=== PATIENT | male | born 1950 | race Caucasian/White ===

== ENCOUNTER 2024-12-17 12:41 | Inpatient (IN) ==
--- OUTSIDE RECORDS SUMMARY | 2024-12-17 12:46 | External Medical Summary ---
Author Name Unknown Address Unknown Organization K01:LABORATORY [facility] [place] - [address] [place] [address] Laboratory Report Ordering Provider Test Date Status LEMUEL NGUYEN 12/16/2024 14:11:05 Final Observation Date Value Abnormality Reference (Units ) Status Folic Acid 12/16/2024 14:11:05 11.8 >4.5 (ng/ mL) Final Performing Location [facility] - [address] [place] [address]
--- OUTSIDE RECORDS SUMMARY | 2024-12-17 12:46 | External Medical Summary | Summary of Care ---
Author Name Unknown Organization [facility] Address [address] [facility] [place] [address] Phone [phone] Care Team Providers Care Chemic Mangler Name Role Phone Russ Berman MD Primary Care Provider [phone] Reason for Visit * Reason Comments Outpatient Testing Encounter Details Date Type Department Care Team (Late st Contact Info) Description 12/16/2024 2:10 PM EDT Laboratory Laboratory, [facility] [address] [facility] [place] [address] [facility] [address] [facility] [address] Prostate cancer (HCC); Elevated prostate specific antigen (PSA); Fatigue, unspecified type; Heart palpitations; Anemia, unspecified type; Pallor; Dyslipidemia, goal LDL below 70 Allergies Active Allergy Reactions Criticality Noted Date Comments Pollen Other (Please comment) Low 01/02/2023 Nasal congestion Prednisone Edema Other,Neuro complications (Please comment) 05/15/2021 Edema to ankles/feet Tingling/numbness documented as of this encounter (statuses as of 12/16/2024) Medications Glucosamine Chondr 1500 Complx Oral Capsule Take 2 Capsules by mouth at bedtime. Active Aspirin 81 MG Oral Tablet Delayed Release Take 1 Tablet by mouth in the morning. Active Clobetasol Propionate 0.05 % External SolutionIndicat ions:Seborrheic dermatitis of scalp Apply 3-4 drops to scalp and ears once daily after the shower. Apply to wet scalp 50 mL 5 06/09/2023 Active Probiotic Daily Oral Capsule Take 1 Capsule by mouth in the morning. Active Roflumilast (Antiseborrheic ) 0.3 % External FoamIndications :Seborrheic dermatitis of scalp,Seborrhei c dermatitis Apply once daily to rash on scalp, ears, and face 60 g 3 07/29/2024 Active Atorvastatin Calcium 40 MG Oral Tablet (Lipitor) TAKE 1 TABLET EVERY MORNING 90 Tablet 3 09/13/2024 Active Metoprolol Succinate ER 50 MG Oral Tablet Extended Release 24 Hour (toPROL XL) Take 1 Tablet by mouth in the morning. 90 Tablet 3 10/31/2024 Active amLODIPine Besylate 5 MG Oral Tablet (Norvasc) TAKE 1 TABLET IN THE MORNING 90 Tablet 2 12/11/2024 Active documented as of this encounter (statuses as of 12/16/2024) Active Problems Problem Noted Date Diagnosed Date PSVT (paroxysmal supraventricular tachycardia) 1 11/09/2023 PAD (peripheral artery disease) 08/26/2024 Obesity, Class II, BMI 35-39.9, isolated (see ac tual BMI) 09/29/2023 Prostate cancer 09/29/2023 S/P AAA repair 09/29/2023 HTN, goal below 130/80 07/10/2023 Prediabetes 05/11/2023 Overview: Per Prediabetes protocol Dyslipidemia documented as of this encounter (statuses as of 12/16/2024) Resolved Problems Problem Noted Date Diagnosed Date Resolved Date Body mass index (BMI) of 40. 0 to 44.9 in adult 04/06/2023 09/29/2023 Overview: Per Obesity protocol Family history of other card iovascular diseases 09/29/2023 Overview (12/20/2015): ICD-10 update of inactive term documented as of this encounter (statuses as of 12/16/2024) Immunizations Name Administration Dates Next Due Pneumococcal Conjugate Vacc, 13 Valent (Prevnar) 10/13/2016,05/12/2016 Pneumococcal Polysaccharide PPV23 (Pneumovax) ,12/28/2012 Seasonal Influenza Virus Vac cine, Unspecified Formulation 07/23/2022 TDAP, Age 7 and older, IM (Adacel) 10/03/2013 Varicella Zoster Vaccine (Adult) 06/19/2014 documented as of this encounter Social History Tobacco Use Types Packs/Day Years Used Date Smoking Tobacco: Former Cigarettes 0.5 28 0 03/08/1995 - 03/08/2023 Smokeless Tobacco: Former Chew Alcohol Use Standard Drinks/Week Comments Yes 0 (1 standard drink = 0.6 oz pur e alcohol) 2 per year PHQ-2 Answer Date Recorded PHQ Adult Total Score 0 01/02/2023 Hunger Vital Sign Answer Date Recorded Within the past 12 months, y ou worried that your food would run out before you got the money to buy more. Never true 01/03/20 23 Within the past 12 months, t he food you bought just didn't last and you didn't have money to get more. 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 CBC results discussed. Recommend inpatient treatment and further evaluation. Transfusion of packed red blood cells, initiation of PPI therapy, need for upper and lower endoscopy, etc discussed. Patient needs to make arrangements for his who has dementia and take careof a few other things; he plans to go to the hospital tomorrow documented in this encounter Plan of Treatment Upcoming Encounters Date Type Department Care Team (Late st Contact Info) Description 01/10/2025 11:00 AM EDT Office Visit Cardiology, [facility] [address] [place] [address] Esteban Ortega O, DO [address] [place] [address] 09/25/2025 8:30 AM EST Office Visit Urology, [facility] [address] [place] [address] Cash Robertson MD [address] [place] [address] Pending Results Name Type Priority Associated Diagnoses Date /Time PSA Lab Routine Prostate cancer (HCC) Elevated prostate specific antigen (PSA) 12/16/2024 2:11 PM EDT TSH WITH FREE T4 IF INDICATED Lab Routine Fatigue, unspecified type Heart palpitations Anemia, unspecified type 12/16/2024 2:11 PM EDT MAGNESIUM Lab Routine Heart palpitations 12/16/2024 2:11 PM EDT IRON SCREEN, INCLUDING TIBC Lab Routine Fatigue, unspecified type Pallor Anemia, unspecified type 12/16/2024 2:11 PM EDT FERRITIN Lab Routine Fatigue, unspecified type Pallor Anemia, unspecified type 12/16/2024 2:11 PM EDT VITAMIN B12 Lab Routine Pallor Anemia, unspecified type 12/16/2024 2:11 PM EDT FOLIC ACID Lab Routine Pallor Anemia, unspecified type 12/16/2024 2:11 PM EDT LDL CHOLESTEROL (DIRECT MEASURE) Lab Routine Dyslipidemia, goal LDL below 70 12/16/2024 2:11 PM EDT SERUM PROTEIN ELECTROPHORESIS REFLEX PROFILE Lab Routine Anemia, unspecified type 12/16/2024 2:11 PM EDT Scheduled Procedures Name Priority Associated Diagnoses Date/Ti me COLONOSCOPY FLEXIBLE PROXIMA L DIAGNOSTIC Recall Special screening for malignant neoplasms, colon Health Maintenance Due Date Last Done Comments Albumin/Creatinine Ratio 1968 Hepatitis C Screening 1968 Cologuard 1995 Sigmoidoscopy 1995 Fecal Occult Blood Test 11/08/2001 11/08/2000 Colonoscopy 08/03/2012 08/03/2002 Colorectal Cancer Screening 08/03/2012 Zoster Vaccines (2 of 3) 08/14/2014 06/19/2014 Adult Wellness Visit 2016 DTap/Tdap Vaccines (2 - Td or Tdap) 10/03/2023 10/03/2013 Depression Screening 01/03/2024 01/02/2023 COVID-19 Vaccine ( season) 2024 07/23/2022, 04/24/2022, 08/27/2021, Additional history exists Influenza Vaccine (FLU shot) (#1) 2024 07/23/2022 HbA1c 08/26/2025 08/26/2024, 12/2022, 03/23/2023, Additional history exists GFR 12/16/2025 12/16/2024, 07/29, 07/23/2023, Additional history exists Lipid Panel 01/10/2028 01/09/2023, 02/26, 02/24/2006, Additional history exists Pneumococcal Vaccine: 50+ Years Completed 11/01/2018, 10/13/2016, 05/12/2016, Additional history exists AAA Screening Completed 02/02/2023, 04/2023, 01/05/2023, Additional history exists HPV (Gardasil) Vaccine Aged Out No lo nger eligible based on patient's age to complete this topic Hepatitis B Vaccine Aged Out No longe r eligible based on patient's age to complete this topic MENINGOCOCCAL (MENACTRA/MENVEO) Aged Out No longer eligible based on patient's age to complete this topic Meningitis B Vaccine (Bexsero/Trumemba) Aged Out No longer eligible based on patient's age to complete this topic documented as of this encounter Medical Devices Implanted Type Area Furrier Apprentice Device Identifier Shelf Expiration Date Model / Serial / Lot [facility]-10/11/2014 Implanted: 015 (Quantity not on file) Senait LUYKER [id number] / / Description:Target 360 SOFT coil implanted [facility]-10/11/2014 Implanted: 015 (Quantity not on file) Senait LUYKER [id number] / / Description:[facility]-10/11/2014 Implanted: 015 (Quantity not on file) Senait SOSA [id number] / / Description:Target HELICAL U LTRA coil implanted at [facility]-10/11/2014 Implanted: 015 (Quantity not on file) Clip SHEILA [id number] / / Description:Target HELICAL U LTRA coil implanted at [facility]-10/11/2014 Implanted: 015 (Quantity not on file) Clip SHEILA [id number] / / Description:Target 360 ULTRA coil implanted at [facility]-10/11/2014 Implanted: 015 (Quantity not on file) Clip SHEILA [id number] / / Description:Target 360 ULTRA coil implanted at [facility]-10/11/2014 Implanted: 015 (Quantity not on file) Clip SHEILA [id number] / / Description:Target HELICAL U LTRA coil implanted at [facility] Lens Intraoc 20.5 - [id number] - [id number] Implanted:Qty: 1 on 05/21/2021 by Geoffrey Sawyer MD at OR [facility] Right: Eye [employer] 02/25/2026 [id number] / [id number] / Lens Intraoc 20.5 - [id number] - [id number] Implanted:Qty: 1 on 05/28/2021 by Geoffrey Sawyer MD at OR [facility] Left: Eye [employer] 02/25/2026 [id number] / [id number] / [id number] documented as of this encounter Procedures Procedure Name Priority Date/Time Associated Diagnosis Comments DIFFERENTIAL, AUTOMATED Routine 12/16/2024 2:11 PM EDT Fatigue, unspecified type Heart palpitations Pallor Anemia, unspecified type COMPREHENSIVE METABOLIC PANEL Routine 12/16/2024 2:11 PM EDT Heart palpitations Dyslipidemia, goal LDL below 70 CBC Routine 12/16/2024 2:11 PM EDT Fatigue, unspecified type Heart palpitations Pallor Anemia, unspecified type CBC Routine 12/16/2024 2:11 PM EDT Fatigue, unspecified type Heart palpitations Pallor Anemia, unspecified type DIFFERENTIAL, TECHNOLOGIST REVIEW Routine 12/16/2024 2:11 PM EDT Fatigue, unspecified type Heart palpitations Pallor Anemia, unspecified type documented in this encounter Results * (ABNORMAL) DIFFERENTIAL, TECHNOLOGIST REVIEW (12/16/2024 2:11 PM EDT) WBC 4.99 4.00 - 10.80 K/uL 12/16/2024 3:59 PM EDT [facility] Neutrophils % 56.0 40.0 - 75.0 % 12/16/2024 3:59 PM EDT [facility] Lymphocytes % 21.0 18.0 - 42.0 % 12/16/2024 3:59 PM EDT [facility] [place] [facility] Monocytes % 14.0(H) 1.0 - 11.0 % 12/16/2024 3:59 PM EDT [facility] Eosinophils % 7.0(H) 0.0 - 6.0 % 12/16/2024 3:59 PM EDT [facility] Basophils % 2.0 0.0 - 2.0 % 12/16/2024 3:59 PM EDT [facility] [place] [facility] Absolute Neutrophils 2.79 1.80 - 7.70 K/uL 12/16/2024 3:59 PM EDT [facility] [place] [facility] Absolute Lymphocytes 1.05 1.00 - 4.80 K/uL 12/16/2024 3:59 PM EDT [facility] [place] [facility] Absolute Monocytes 0.70 0.00 - 1.10 K/uL 12/16/2024 3:59 PM EDT [facility] [place] Absolute Eosinophils 0.35 0.00 - 0.70 K/uL 12/16/2024 3:59 PM EDT [facility] [place] [facility] Absolute Basophils 0.10 0.00 - 0.20 K/uL 12/16/2024 3:59 PM EDT [facility] [place] [facility] nRBCs 12/16/2024 3:59 PM EDT [facility] [place] [facility] Elliptocytes Moderate( A) None Seen 12/16/2024 3:59 PM EDT [facility] [place] [facility] Schistocytes Few(A) None Seen 12/16/2024 3:59 PM EDT [facility] [place] [facility] Blood Venous blood specimen / Unknown Venipuncture / Unknown 12/16/2024 2:11 PM EDT 12/16/2024 2:11 PM EDT [facility] Santo KumarKelsey PA-C LAB BLOOD ORDERABLES Final Result [facility] [place] [facility] [address] [place] [address] * DIFFERENTIAL, AUTOMATED (12/16/2024 2:11 PM EDT) Blood Venous blood specimen / Unknown Venipuncture / Unknown 12/16/2024 2:11 PM EDT 12/16/2024 2:11 PM EDT [facility] Santo Mereditho PA-C LAB BLOOD ORDERABLES Final Result Performing Organization Address City/[facility]/ZIP Co de Phone Number [facility] [place] [facility] [place] [address] * (ABNORMAL) CBC (12/16/2024 2:11 PM EDT) [facility] WBC 4.99 4.00 - 10.80 K/uL 12/16/2024 3:59 PM EDT [facility] [place] RBC 1.70 4.50 - 5.25 M/uL 12/16/2024 3:59 PM EDT [facility] [place] [facility] HGB 6.3(L) 14.0 - 16.8 g/dL 12/16/2024 3:59 PM EDT [facility] [place] [facility] Comment:Results rechecked. HCT 19.9(L) 40.0 - 48.4 % 12/16/2024 3:59 PM EDT [facility] [place] MCV 117.1 82.0 - 99.5 fL 12/16/2024 3:59 PM EDT [facility] [place] [facility] MCH 37.1 27.0 - 34.0 pg 12/16/2024 3:59 PM EDT [facility] MCHC 31.7 32.0 - 36.0 g/dL 12/16/2024 3:59 PM EDT [facility] RDW 14.7 11.5 - 15.5 % 12/16/2024 3:59 PM EDT [facility] PLT 381 140 - 400 K/uL 12/16/2024 3:59 PM EDT [facility] MPV 8.9 6.6 - 11.1 fL 12/16/2024 3:59 PM EDT [facility] Blood Venous blood specimen / Unknown Venipuncture / Unknown 12/16/2024 2:11 PM EDT 12/16/2024 2:11 PM EDT Jose Francisco Cole PA-C LAB BLOOD ORDERABLES Final Result [facility] [address] [place] [address] * (ABNORMAL) COMPREHENSIVE METABOLIC PANEL (12/16/2024 2:11 PM EDT) BUN 17 6 - 20 mg/dL 12/16/2024 3:22 PM EDT [facility] CREATININE 1.3(H) 0.6 - 1.2 mg/dL 12/16/2024 3:22 PM EDT [facility] EGFR 57(L) >=60 mL/min 12/16/2024 3:22 PM EDT [facility] Comment:eGFR is calculated b ased on the CKD-EPI 2020 equation. SODIUM 138 135 - 146 mmol/L 12/16/2024 3:22 PM EDT [facility] POTASSIUM 4.7 3.5 - 5.1 mmol/L 12/16/2024 3:22 PM EDT [facility] CHLORIDE 103 98 - 107 mmol/L 12/16/2024 3:22 PM EDT [facility] CO2 23 22 - 32 mmol/L 12/16/2024 3:22 PM EDT [facility] ANION GAP 12 7 - 15 mmol/L 12/16/2024 3:22 PM EDT [facility] GLUCOSE 101 70 - 120 mg/dL 12/16/2024 3:22 PM EDT [facility] Albumin 4.2 3.8 - 5.0 g/dL 12/16/2024 3:22 PM EDT [facility] AST 21 10 - 50 U/L 12/16/2024 3:22 PM EDT [facility] Alkaline Phosphatase 83 35 - 130 U/L 12/16/2024 3:22 PM EDT [facility] Bilirubin, Total 0.9 <=1.2 mg/dL 12/16/2024 3:22 PM EDT [facility] [place] [facility] CALCIUM 9.5 8.4 - 10.2 mg/dL 12/16/2024 3:22 PM EDT [facility] [place] [facility] Protein 6.3 6.0 - 8.3 g/dL 12/16/2024 3:22 PM EDT [facility] [place] [facility] ALT 33 10 - 50 U/L 12/16/2024 3:22 PM EDT [facility] [place] [facility] Blood Venous blood specimen / Unknown Venipuncture / Unknown 12/16/2024 2:11 PM EDT 12/16/2024 2:11 PM EDT Jsoe Francisco Cole PA-C LAB BLOOD ORDERABLES Final Result [facility] [place] [facility] [address] [place] [address] documented in this encounter Visit Diagnoses Diagnosis Prostate cancer (HCC) Malignant neoplasm of prostate Elevated prostate specific antigen (PSA) Fatigue, unspecified type Heart palpitations Palpitations Anemia, unspecified type Pallor Dyslipidemia, goal LDL below 70 Other and unspecified hyperlipidemia documented in this encounter Care Teams Chemic Mangler Relationship Specialty Start Date End Date Russ Berman MD [address] [place] [address] PCP - General Family Medicine 08/12/23 documented as of this encounter
--- OUTSIDE RECORDS SUMMARY | 2024-12-17 12:46 | External Medical Summary ---
Author Name Unknown Address Unknown Organization K01:[facility] [place] [address] [place] [address] Laboratory Report Ordering Provider Test Date Status LEMUEL NGUYEN 12/16/2024 14:11:05 Final Observation Date Value Abnormality Reference (Units ) Status Ferritin 12/16/2024 14:11:05 466 Above high normal 30 -400 (ng/mL) Final Performing Location [facility] - [address] [place] [address]
--- OUTSIDE RECORDS SUMMARY | 2024-12-17 12:46 | External Medical Summary ---
Author Name Unknown Address Unknown Organization K01:LABORATORY [facility] [place] - [address] [place] [address] Laboratory Report Ordering Provider Test Date Status LEMUEL NGUYEN 12/16/2024 14:11:05 Final Observation Date Value Abnormality Reference (Units ) Status Vitamin B12 12/16/2024 14:11:05 [phone] (pg/mL) Final Performing Location [facility] - [address] [place] [address]
--- OUTSIDE RECORDS SUMMARY | 2024-12-17 12:46 | External Medical Summary ---
Author Name Unknown Address Unknown Organization K01:[facility] - [address] [place] [address] Laboratory Report Ordering Provider Test Date Status LEMUEL NGUYEN 12/16/2024 14:11:05 Final Observation Date Value Abnormality Reference (Units ) Status Magnesium 12/16/2024 14:11:05 2.1 1.5-2.6 (m g/dL) Final Performing Location [facility] - [address] [place] [address]
--- OUTSIDE RECORDS SUMMARY | 2024-12-17 12:46 | External Medical Summary | Summary of Care ---
Author Name Unknown Organization [facility] Address [address] [facility] [address] Phone [phone] Care Team Providers Care Server Manager Name Role Phone Russ Berman MD Primary Care Provider [phone] Reason for Visit * Reason Comments Consultation Palpitations Acute Encounter Details Date Type Department Care Team (Late st Contact Info) Description 12/16/2024 2:00 PM EDT Office Visit Cardiology, [facility] [address] [place] [address] Jose Francisco Cole PA-C [address] [facility] [place] [address] Fatigue, unspecified type*; Heart palpitations; Pallor; Dyslipidemia, goal LDL below 70; HTN, goal below 130/80; Dyslipidemia Allergies Active Allergy Reactions Criticality Noted Date Comments Pollen Other (Please comment) Low 01/02/2023 Nasal congestion Prednisone Edema Other,Neuro complications (Please comment) 05/15/2021 Edema to ankles/feet Tingling/numbness documented as of this encounter (statuses as of 12/17/2024) Medications Glucosamine Chondr 1500 Complx Oral Capsule [...] as of this encounter (statuses as of 12/17/2024) Active Problems Problem Noted Date Diagnosed Date PSVT (paroxysmal supraventricular tachycardia) 1 11/09/2023 PAD (peripheral artery disease) 08/26/2024 Obesity, Class II, BMI 35-39.9, isolated (see ac tual BMI) 09/29/2023 Prostate cancer 09/29/2023 S/P AAA repair 09/29/2023 HTN, goal below 130/80 07/10/2023 Prediabetes 05/11/2023 Overview: Per Prediabetes protocol Dyslipidemia documented as of this encounter (statuses as of 12/17/2024) Resolved Problems Problem Noted Date Diagnosed Date Resolved Date Body mass index (BMI) of 40. 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 The patient has yet to establish with [facility] Cardiology though is scheduled to be seen by Dr. Ortega on January 10, 2025. Reason for upcoming consultation with Dr. Ortega is palpitations. Patient notes slow gradual progressive complaints over the past year, more so over the past 4 months - increased exertional dyspnea with associated palpitations, generalized weakness, fatigue, lack of strength in the lower extremities. No overt chest pain. No resting or nocturnal dyspnea. No orthopnea or PND. No significant peripheral edema. No dizziness or syncope. No fevers or chills. No epistaxis. No hemoptysis. No gross hematuria. Bowels are intermittently loose and dark. He has a remote history of a stomach ulcer. He denies reflux or heartburn. No pica. In July 2024 he was referred for ambulatory EKG monitoring, wearing a Zio monitor for 7 days towards the end of July. The Zio monitor revealed sinus as the predominant rhythm with an average heart rate of 91 bpm. Occasional premature atrial beats and multiple runs of SVT were observed. Multiple triggered events occurred in association with sinus rhythm, sinus tachycardia, supraventricularectopy, and SVT. Metoprolol prescribed and increased after the Zio results were available, without subjective improvement in complaints. Resting echocardiography on September 09, 2024 was limited in quality though adequate for the evaluation. LV systolic function was preserved with an EF of 60 to 64%. Mild concentric LVH was noted. Left atrium was mildly enlarged. Grade 1 diastolic dysfunction observed. No significant valvular disease noted. The aortic root was noted to be mildly enlarged at 4.4 cm. The proximal ascending thoracic aorta was normal in size. Past Medical and Surgical History: Coronary and thoracic aortic calcifications via prior CT imaging Abdominal aortic aneurysm Postop AAA repair complicated by bloody NG tube output and diarrhea managed medically, receiving 2 units of packed red blood cells per available documentation. 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 Procedure complicated by embolization to the right middle cerebral artery after coiling, treated with stent assisted manual aspiration thrombectomy Enlarged aortic root Hypertension Dyslipidemia Mild bilateral internal carotid artery stenosis Emphysema Prediabetes GERD Remote history of ? gastric ulcer History of prostate cancer BPH with LUTS Left kidney cyst Chart history of antisocial personality disorder Arthritis, bilateral knee pain, multilevel disc degeneration Arthroscopic knee surgery Lumbar spine injection Cataract extractions Family History: Positive for CAD in father, uncles, paternal grandmother, paternal grandfather Social History, reformed smoker, 1/2 pack per day times 40 years. Reformed smokeless tobacco user. No significant alcohol. No illegal drug use. , with dementia. Retired. Social History Tobacco Use Smoking status: Former Current packs/day: 0.00 Average packs/day: 0.5 packs/day for 28.0 years (14.0 ttl pk-yrs) Types: Cigarettes Start date: 03/08/1995 Quit date: 03/08/2023 Years since quittin.7 Smokeless tobacco: Former Types: Chew Vaping Use Vaping status: Never Used Substance Use Topics Alcohol use: Yes Comment: 2 per year Drug use: Never A complete review of systems was not obtained due to time restraints. Review of patient's allergies indicates: Allergen Reactions Prednisone Edema Other and Neuro complications (Please comment) Edema to ankles/feet Tingling/numbness Hay Fever [Pollen] Other (Please comment) Nasal congestion Current Outpatient Medications Medication Sig Dispense Refill Glucosamine Chondr 1500 Complx Oral Capsule Take 2 Capsules by mouth at bedtime. Aspirin 81 MG Oral Tablet Delayed Release Take 1 Tablet by mouth in the morning. Clobetasol Propionate 0.05 % External Solution Apply 3-4 drops to scalp and ears once daily after the shower. Apply to wet scalp 50 mL 5 Probiotic Daily Oral Capsule Take 1 Capsule by mouth in the morning. Roflumilast (Antiseborrheic) 0.3 % External Foam Apply once daily to rash on scalp, ears, and face 60 g 3 Atorvastatin Calcium 40 MG Oral Tablet (Lipitor) TAKE 1 TABLET EVERY MORNING 90 Tablet 3 Metoprolol Succinate ER 50 MG Oral Tablet Extended Release 24 Hour (toPROL XL) Take 1 Tablet by mouth in the morning. 90 Tablet 3 amLODIPine Besylate 5 MG Oral Tablet (Norvasc) TAKE 1 TABLET IN THE MORNING 90 Tablet 2 No current facility-administered medications for this visit. OBJECTIVE/PHYSICAL EXAMINATION: General: Pleasant. Comfortable. Cooperative. Skin: Marked skin pallor Eyes: PER. Conjunctiva pink, sclera pale. HENT: Normocephalic. Atraumatic. Neck: Bilateral carotid bruits. No JVD. Heart: Regular at 92 bpm. Soft systolic murmur heard in the aortic outflow tract. No diastolic murmur. No rub. Lungs: Diminished at the bases however clear to auscultation. No wheeze. Abdomen: +BS. Nontender. Extremities: Thick, without significant edema. No clubbing. No cyanosis. Pulses: radial=2/4, posterior tibial=2/4. Limited neurological examination: No focal deficit. Data: February 18, 2023 Nuclear Stress Test ([facility]) ECG Response: Non-diagnostic Symptoms EX: No significant Regadenoson associated chest discomfort. SPECT Ischemia: None SPECT Infarction: None T.I.D.: LVEF: 63% (visually confirmed; lower limit normal range 50%) LV Wall Motion: Normal Probability of CAD: Relatively low Probability of Ischemia: Relatively low Extent of Ischemia: No significant ischemia Severity of Ischemia: No significant ischemia Risk - Mortality: Low risk (based on LVEF and total defect size) Risk - Coronary Events: Low risk (based on severity of ischemia) Probability of Infarction: Relatively low Extent of Infarction: No significant infarction Severity of Infarction: No significant infarction Final Assessment: The SPECT perfusion images are considered to be within normal limits. July 2024 Zio: Patient had a min HR of 61 bpm, max HR of 226 bpm, and avg HR of 91 bpm. Predominant underlying rhythm was Sinus Rhythm. 169 Supraventricular Tachycardia runs occurred, the run with the fastest interval lasting 31.7 secs with a max rate of 226 bpm (avg 194 bpm); the run with the fastest interval was also the longest. Supraventricular Tachycardia was detected within+/- 45 seconds of symptomatic patient event(s). Isolated SVEs were occasional (2.5%, 49447), SVE Couplets were rare (<1.0%, 1510), and SVE Triplets were rare (<1.0%, 333). Isolated VEs were rare (<1.0%), VE Couplets were rare (<1.0%), and no VE Triplets were present. The patient recorded 8 event markers and 9 diary entries which correlated with sinus and sinus tachycardia with sensed atrial ectopy and supraventricular tachycardia. IMPRESSION: Sinus and sinus tachycardia, average rate 91 beats per minute with occasional premature atrial beats and multiple runs of paroxysmal supraventricular tachycardia longest 31.7 seconds in duration, average heart rate 194 beats per minute September 09, 2024 TTE Interpretation Summary (as per Dr. Ortega): The examination is limited quality but adequate for evaluation of the referral indication. The qualitative LV ejection fraction is 60-64% (normal). The LV wall thickness is mildly increased (concentric). The left atrium is mildly enlarged (35-41 ml/m^2). The left ventricular diastolic function is mildly abnormal (grade I). No significant valvular disease is present. The proximal ascending thoracic aorta is normal sized. The aortic root is mildly enlarged, 4.4 cm. IMPRESSION: 74-year-old male seen acutely during 's visit due to clinical concern and as requested, progressive complaints including increased exertional dyspnea, palpitations, generalized weakness and fatigue, lack of strength in the lower extremities. Patient with marked reduction in exercise tolerance and overall functional capacity. Examination with marked pallor. Intermittently loose and darker color stools noted with history of past ? Upper GI bleeding noted. Patient does not appear to be actively bleeding. Suspect constellation of signs/symptoms are secondary to symptomatic anemia. RECOMMENDATIONS/PLAN: Laboratory work now. Further recommendations pending above Keep the previously scheduled cardiology consultation with Dr. Ortega for now Jose Francisco Cole PA-C Department of Cardiology I spent a 10 minutes [id number] with the patient, 15 minutes reviewing the patient's chart, and 19 minutes typing this note after the patient left, all on the date of service (total time 44 minutes) This chart was completed in part utilizing [employer] Speech Voice Recognition Software. Grammatical errors, random word insertions, prounoun errors, and incomplete sentences are an occasional consequence of this system due to software limitations, ambient noise, and hardware issues. Any formal questions or concerns about the content, text, or information contained within the body of this dictation should be directly addressed to the provider for clarification. documented in this encounter Plan of Treatment Upcoming Encounters Date Type Department Care Team (Late st Contact Info) Description 01/10/2025 11:00 AM EDT Office Visit Cardiology, [facility] [address] [place] [phone] Esteban Ortega O, [address] [place] [address] 09/25/2025 8:30 AM EST Office Visit Urology, [facility] [address] [place] [phone] Cash Robertson MD [address] [place] [address] Scheduled Procedures Name Priority Associated Diagnoses Date/Ti [...] shot) (#1) 2024 07/23/2022 HbA1c 08/26/2025 08/26/2024, 0812/2022, 03/23/2023, Additional history exists GFR 12/16/2025 12/16/2024, 07/29, 07/23/2023, Additional history exists Lipid Panel 01/10/2028 12/16/2024, 12/27, 03/08/2007, Additional history exists Pneumococcal Vaccine: 50+ Years Completed 11/01/2018, 10/13/2016, 05/12/2016, Additional history exists AAA Screening Completed 02/02/2023, 050 04/2023, 01/05/2023, Additional history exists HPV (Gardasil) [...] this encounter Medical Devices Implanted Type Area Medical Assistant Supervisor Device Identifier Shelf Expiration Date Model / Serial / Lot Clip-10/11/2014 Implanted: 015 (Quantity not on file) Senait [id number] / / Description:Target 360 SOFT coil implanted at [facility] Clip-10/11/2014 Implanted: 015 (Quantity not on file) Clip SHEILA [id number] / / Description:Target 360 SOFT coil implanted at [facility]-10/11/2014 Implanted: 015 (Quantity not on file) Clip SHEILA [id number] / / Description:Target HELICAL U LTRA coil implanted at [facility]-10/11/2014 Implanted: 015 (Quantity not on file) Clip SHEILA [id number] / / Description:Target HELICAL U LTRA coil implanted at [facility]-10/11/2014 Implanted: 015 (Quantity not on file) Clip SHEILA [id number] / / Description:Target 360 ULTRA coil implanted at [facility]-10/11/2014 Implanted: 015 (Quantity not on file) Clip SHEILA [id number] / / Description:Target 360 ULTRA coil implanted at [facility]-10/11/2014 Implanted: 015 (Quantity not on file) Clip SHEILA [id number] / / Description:Target HELICAL U LTRA coil implanted at [facility] Lens Intraoc 20.5 - [id number] - [id number] Implanted:Qty: 1 on 05/21/2021 by Geoffrey Sawyer MD at OR [facility] Right: Eye [employer] 02/25/2026 [id number] / [id number] / Lens Intraoc 20.5 - [id number] - [id number] Implanted:Qty: 1 on 05/28/2021 by Geoffrey Sawyer MD at OR [facility] Left: Eye BAUSCH [employer] LOMB 02/25/2026 [id number] / [id number] / [id number] documented as of this encounter Visit Diagnoses Diagnosis Fatigue, unspecified type- Primary Heart palpitations Palpitations Pallor Dyslipidemia, goal LDL below 70 Other and unspecified hyperlipidemia HTN, goal below 130/80 Unspecified essential hypertension Dyslipidemia Other and unspecified hyperlipidemia documented in this encounter Care Teams Server Manager Relationship Specialty Start Date End Date Russ Berman MD [address] [place] [phone] PCP - General Family Medicine 08/12/23 documented as of this encounter
--- OUTSIDE RECORDS SUMMARY | 2024-12-17 12:46 | External Medical Summary ---
Author Name Unknown Address Unknown Organization K01:[facility] [place] - [address] [place] [address] Laboratory Report Ordering Provider Test Date Status LEUMEL NGUYEN 12/16/2024 14:11:05 Final Observation Date Value Abnormality Reference (Units ) Status Iron 12/16/2024 14:11:05 210 Above high normal 45-176 (ug/dL) Final Iron-binding capacity 12/16/2024 14:11:05 289 250-425 (ug/dL) Final Transferrin Sat % 12/16/2024 14:11:05 73 Above high normal 15-55 (%) Final Performing Location [facility] - [address] [place] [address]
--- OUTSIDE RECORDS SUMMARY | 2024-12-17 12:47 | External Medical Summary | Summary of Care ---
Author Name Unknown Organization [facility] Address [address] [place] [address] Phone [phone] Care Team Providers Care Traffic Signal Mechanic Name Role Phone Russ Berman MD Primary Care Provider [phone] Reason for Visit * Reason Onset Date Comments Referral 09/01/2024 Encounter Details Date Type Department Care Team (Late st Contact Info) Description 09/01/2024 New Patient Triage (CHIEF CLERK SHELTER USE ONLY) Cardiology, [facility] [address] [facility] [place] [address] Harika Vuong, BROOM HANDLE DIPPER [address] [place] [address] Referral Allergies Active Allergy Reactions Criticality Noted Date Comments Pollen Other (Please comment) Low 01/02/2023 Nasal congestion Prednisone Edema Other,Neuro complications (Please comment) 05/15/2021 Edema to ankles/feet Tingling/numbness documented as of this encounter (statuses as of 09/02/2024) Medications Glucosamine Chondr 1500 Complx Oral Capsule [...] Capsule by mouth in the morning. Active Atorvastatin Calcium 40 MG Oral Tablet (Lipitor) Take 1 Tablet by mouth in the morning. 90 Tablet 3 09/30/2023 Active amLODIPine Besylate 5 MG Oral Tablet (Norvasc) Take 1 Tablet by mouth in the morning. In the morning.. 90 Tablet 3 12/15/2023 Active Roflumilast (Antiseborrheic ) 0.3 % External FoamIndications :Seborrheic dermatitis of scalp,Seborrhei c dermatitis Apply once daily to rash on scalp, ears, and face 60 g 3 07/29/2024 Active documented as of this encounter (statuses as of 09/02/2024) Active Problems Problem Noted Date Diagnosed Date PAD (peripheral artery disease) 08/26/2024 Obesity, Class II, BMI 35-39.9, isolated (see ac tual BMI) 09/29/2023 Prostate cancer 09/29/2023 S/P AAA repair 09/29/2023 HTN, goal below 130/80 07/10/2023 Prediabetes 05/11/2023 Overview: Per Prediabetes protocol Dyslipidemia documented as of this encounter (statuses as of 09/02/2024) Resolved Problems Problem Noted Date Diagnosed Date Resolved Date Body mass index (BMI) of 40. 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 Not on file Not on jhon e Not on file Not on file Not on file Not on file documented as of this encounter Progress Notes * Mariah Longo PA-C - 09/02/2024 7:04 PM EST Does patient need to be seen?: Yes Modality: Office visit Urgency: Within 30 days (routine) Discussed care plan with patient or proxy?: Yes via phone Communicated with patient on Date (mm/dd/): 09/01/24 at [facility] 1001 73 year old male referred by PCP for palpitations and ADDISON zio patch placed and echocardiogram scheduled Scheduled 12/[address] Ortega Appointment is appropriate as scheduled Thank you Mariah Longo PA-C Department of Cardiology, [facility] * René Alford LPN - 09/01/2024 9:56 AM EST New Patient Triage What is the diagnosis/reason for referral?: Palpitations Enter order ID here: [id number] Specialty specific documentation: Cardiology Structural Heart Discussed care plan with patient or proxy?: Yes via phone call Communicated with patient on Date (mm/dd/y): 09/01/2024 at [facility] 10:01 am Patient referred for palpitations. 7 day Zio ordered on 08/26/24. Echo ordered and scheduled 09/09/24. No recent EKG on file. Called patient and informed to keep appointment as scheduled for now pending test results. If testing comes back with urgent needs we would try and move up appointment at that time. Patient verbalized understanding. PCP notes: Christopher is here for evaluation of increasing dyspnea on exertion and palpitations. He is under a fair amount of stress due to the failing health of his . Christopher has known PAD and is s/p AAA repair. He has had several cardiac evaluations over the past few decades, but nothing of late. He denies sharon angina. Sleep well. Has occasional palpitations but nothing that lasts. He denies increased peripheral edema. ASSESSMENT AND PLAN: (R06.09) Dyspnea on exertion (primary encounter diagnosis) Plan: ECHO, COMPLETE (2D), TRANS-THORACIC -check echo; no signs of heart failure on exam; referral to cardiology placed; ER indications reviewed (R73.03) Prediabetes Plan: HEMOGLOBIN A1C (R00.2) Palpitations Plan: EXTERNAL EKG 2 TO 7 DAYS, TSH WITH FREE T4 IF INDICATED, CARDIOLOGY REFERRAL OP (I73.9) PAD (peripheral artery disease) (HCC) Plan: stable; no claudication (I10) HTN, goal below 130/80 Plan: stable (E78.5) Dyslipidemia Plan: on statin (E66.812) Obesity, Class II, BMI 35-39.9, isolated (see actual BMI) Plan: fairly inactive lifestyle documented in this encounter Plan of Treatment Upcoming Encounters Date Type Department Care Team (Latest Contact Info) Description 09/09/2024 7:15 AM EST Cardiac Studies Cardiac Studies, [facility] [address] [facility] [place] [address] 09/14/2024 8:15 AM EST Office Visit Urology, [facility] [address] [facility] [place] [address] Cash Robertson MD [address] [place] [address] 11/21/2024 1:20 PM EST Hospital Encounter OR [facility], Operating Room [facility] [address] [place] [address] Ancelmo Baires, DO [address] [place] [address] 11/21/2024 1:20 PM EST - 11/21/2024 1:45 PM EST Surgery OR [facility], Operating Room [facility] [address] [place] [address] Ancelmo Baires, DO [address] [place] [address] INJECTION SACROILIAC JOINT 01/10/2025 11:00 AM EDT Office Visit Cardiology, [facility] [address] [place] [address] Esteban Ortega, DO [address] [place] [address] Scheduled Procedures Name Priority Associated Diagnoses Date/Ti me INJECTION SACROILIAC JOINT Inflammation of sacroiliac joint (HCC) 11/21/2024 1:20 PM EST COLONOSCOPY FLEXIBLE PROXIMAL DIAGNOSTIC Recall Special screening for malignant neoplasms, [...] Influenza Vaccine (FLU shot) (#1) 2024 07/23/2022 GFR 08/12/2024 08/12/2023, 06/29, 07/10/2023, Additional history exists HbA1c 08/26/2025 08/26/2024, 12/2022, 03/23/2023, Additional history exists Lipid Panel 01/10/2028 01/09/2023, 02/26, 02/24/2006, Additional history exists Pneumococcal Vaccine: 65+ Years Completed 11/01/2018, 10/13/2016, 05/12/2016, Additional history [...] this encounter Medical Devices Implanted Type Area Grill Attendant Device Identifier Shelf Expiration Date Model / Serial / Lot [facility]10/11/2014 Implanted: 015 (Quantity not on file) Senait [id number] / / Description:Target 360 SOFT coil implanted at [facility]-10/11/2014 Implanted: 015 (Quantity not on file) Clip SHEILA [id number] / / Description:Target 360 SOFT coil implanted at [facility]-10/11/2014 Implanted: 015 (Quantity not on file) Clip SHEILA [id number] / / Description:Target HELICAL U LTRA coil implanted at [facility]-10/11/2014 Implanted: 015 (Quantity not on file) Clip SHEILA [id number] / / Description:[facility] HELICAL U LTRA [facility]-10/11/2014 Implanted: 015 (Quantity not on file) Clip SHEILA [id number] / / Description:Target 360 ULTRA coil implanted at [facility] Clip-10/11/2014 Implanted: 015 (Quantity not on file) Clip SHEILA [id number] / / Description:Target 360 ULTRA coil implanted at [facility]-10/11/2014 Implanted: 015 (Quantity not on file) Clip SHEILA [id number] / / Description:Target HELICAL U LTRA coil [facility] Lens Intraoc 20.5 - [id number] - [id number] Implanted:Qty: 1 on 05/21/2021 by Geoffrey Sawyer MD at OR [facility] Right: Eye BAUSCH [employer] LOMB 02/25/2026 [id number] / [id number] / Lens Intraoc 20.5 - [id number] - [id number] Implanted:Qty: 1 on 05/28/2021 by Geoffrey Sawyer MD at OR [facility] Left: Eye BAUSCH & LOMB 02/25/2026 [id number] / [id number] / [id number] documented as of this encounter Care Teams Traffic Signal Mechanic Relationship Specialty Start Date End Date Russ Berman MD [address] [id number] PCP - General Family Medicine 08/12/23 documented as of this encounter
--- OUTSIDE RECORDS SUMMARY | 2024-12-17 12:47 | External Medical Summary | Summary of Care ---
Author Name Unknown Organization [facility] Address [address] [place] [address] Phone [phone] Care Team Providers Care Rubber And Pounder Name Role Phone Russ Berman MD Primary Care Provider [phone] Encounter Details Date Type Department Care Team (Late st Contact Info) Description 08/01/2024 Telephone Dermatology [facility] [address] [place] [address] Elliot Conley MD [address] [place] [phone] Allergies Active Allergy Reactions Criticality Noted Date Comments Pollen Other (Please comment) Low 01/02/2023 Nasal congestion Prednisone Edema Other,Neuro complications (Please comment) 05/15/2021 Edema to ankles/feet Tingling/numbness documented as of this encounter (statuses as of 11/01/2024) Medications Glucosamine Chondr 1500 Complx Oral Capsule Take 2 Capsules by mouth at bedtime. Active Aspirin 81 MG Oral Tablet Delayed Release Take 1 Tablet by mouth in the morning. Active Clobetasol Propionate 0.05 % External SolutionIndica tions:Seborrhe ic dermatitis of scalp Apply 3-4 drops to scalp and ears once daily after the shower. Apply to wet scalp 50 mL 5 3 Active Probiotic Daily Oral Capsule Take 1 Capsule by mouth in the morning. Active amLODIPine Besylate 5 MG Oral Tablet (Norvasc) Take 1 Tablet by mouth in the morning. In the morning.. 90 Tablet 3 4 Active Roflumilast (Antiseborrhei c) 0.3 % External FoamIndication s:Seborrheic dermatitis of scalp,Seborrhe ic dermatitis Apply once daily to rash on scalp, ears, and face 60 g 3 4 Active Atorvastatin Calcium 40 MG Oral Tablet (Lipitor) Take 1 Tablet by mouth in the morning. 90 Tablet 3 4 024 Discontinued Finasteride 5 MG Oral Tablet (Proscar) Take 1 Tablet by mouth in the morning. 90 Tablet 3 4 024 Discontinued documented as of this encounter (statuses as of 11/01/2024) Active Problems Problem Noted Date Diagnosed Date PSVT (paroxysmal supraventricular tachycardia) 1 11/09/2023 PAD (peripheral artery disease) 08/26/2024 Obesity, Class II, BMI 35-39.9, isolated (see ac tual BMI) 09/29/2023 Prostate cancer 09/29/2023 S/P AAA repair 09/29/2023 HTN, goal below 130/80 07/10/2023 Prediabetes 05/11/2023 Overview: Per Prediabetes protocol Dyslipidemia documented as of this encounter (statuses as of 11/01/2024) Resolved Problems Problem Noted Date Diagnosed Date Resolved Date Body mass index (BMI) of 40. 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 * Telephone Encounter - Scotty Pittman OSA - 08/02/2024 8:31 AM EST Due to already a denial being on file we are unable to send a new PA. We are unable to process your request for prior authorization for [employer] 0.3% for the above member due to [employer] has a denied request on file for ZORYVE MIS 0.3% for this member. Please refer tothe appeals process outlined in the original denial or contact Prior Authorization Department at [phone] for further questions. Thank you Scotty Pittman Medication Open Hearth Laborer II [facility] 08/02/2024,8:31 AM documented in this encounter Plan of Treatment Upcoming Encounters Date Type Department Care Team (Late st Contact Info) Description 01/10/2025 11:00 AM EDT Office Visit Cardiology, [facility] [address] [place] [address] Esteban Ortega DO [address] [place] [address] 09/25/2025 8:30 AM EST Office Visit Urology, [facility] [address] [facility] [place] [address] Cash Robertson MD [address] [place] [address] Scheduled Procedures Name Priority Associated Diagnoses Date/Ti [...] shot) (#1) 2024 07/23/2022 GFR 08/12/2024 08/12/2023, 10/2 02/2023, 07/10/2023, Additional history exists HbA1c 08/26/2025 08/26/2024, 08/0 12/2022, 03/23/2023, Additional history exists Lipid Panel [...] this encounter Medical Devices Implanted Type Area Communications Specialist Device Identifier Shelf Expiration Date Model / Serial / Lot [facility]10/11/2014 Implanted: 015 (Quantity not on file) Clip SHEILA [id number] / / Description:Target 360 SOFT coil implanted at [facility]-10/11/2014 Implanted: 015 (Quantity not on file) Clip SHEILA [id number] / / Description:Target 360 SOFT coil implanted at [facility]-10/11/2014 Implanted: 015 (Quantity not on file) Clip SHEILA [id number] / / Description:Target HELICAL U LTRA coil implanted at [facility]-10/11/2014 Implanted: 015 (Quantity not on file) Clip SHEILA [id number] / / Description:Target HELICAL U LTRA coil implanted at [facility]-10/11/2014 Implanted: 015 (Quantity not on file) Clip SHEILA [id number] / / Description:Target 360 ULTRA coil implanted at [facility]-10/11/2014 Implanted: 015 (Quantity not on file) Clip SHEILA [id number] / / Description:Target 360 ULTRA coil [facility]/11/2014 Implanted: 015 (Quantity not on file) Clip SHEILA [id number] / / Description:Target HELICAL U LTRA coil implanted at [facility] Lens Intraoc 20.5 - [id number] - [id number] Implanted:Qty: 1 on 05/21/2021 by Geoffrey Sawyer MD at OR [facility] Right: Eye [employer]CH [employer] LOMB 02/25/2026 [id number] / [id number] / Lens Intraoc 20.5 - [id number] - [id number] Implanted:Qty: 1 on 05/28/2021 by Geoffrey Sawyer MD at OR [facility] Left: Eye BAUSCH & LOMB 02/25/2026 [id number] / [id number] / [id number] documented as of this encounter Care Teams Rubber And Pounder Relationship Specialty Start Date End Date Russ Berman MD [address] [place] [address] PCP - General Family Medicine 08/12/23 documented as of this encounter
--- OUTSIDE RECORDS SUMMARY | 2024-12-17 12:47 | External Medical Summary | Summary of Care ---
Author Name Unknown Organization [facility] Address [address] [place] [address] Phone [phone] Care Team Providers Care Weight Reduction Specialist Name Role Phone Russ Berman MD Primary Care Provider [phone] Reason for Visit * Reason Onset Date Comments Appointment 09/08/2024 Encounter Details Date Type Department Care Team (Late st Contact Info) Description 09/08/2024 Telephone Family Practice [facility] [address] [place] [address] Russ Berman MD [address] [place] [address] Appointment Allergies Active Allergy Reactions Criticality Noted Date Comments Pollen Other (Please comment) Low 01/02/2023 Nasal congestion Prednisone Edema Other,Neuro complications (Please comment) 05/15/2021 Edema to ankles/feet Tingling/numbness documented as of this encounter (statuses as of 09/09/2024) Medications Glucosamine Chondr 1500 Complx Oral Capsule [...] and face 60 g 3 07/29/2024 Active Metoprolol Succinate ER 25 MG Oral Tablet Extended Release 24 Hour (toPROL XL) Take 1 Tablet by mouth in the morning. 30 Tablet 5 09/08/2024 Active documented as of this encounter (statuses as of 09/09/2024) Active Problems Problem Noted Date Diagnosed Date PSVT (paroxysmal supraventricular tachycardia) 1 11/09/2023 PAD (peripheral artery disease) 08/26/2024 Obesity, Class II, BMI 35-39.9, isolated (see ac tual BMI) 09/29/2023 Prostate cancer 09/29/2023 S/P AAA repair 09/29/2023 HTN, goal below 130/80 07/10/2023 Prediabetes 05/11/2023 Overview: Per Prediabetes protocol Dyslipidemia documented as of this encounter (statuses as of 09/09/2024) Resolved Problems Problem Noted Date Diagnosed Date Resolved Date Body mass index (BMI) of 40. 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 * Telephone Encounter - Candace Mathew OSA - 09/09/2024 11:20 AM EST Pt has already been added to wait list * Telephone Encounter - Kym Justice MED ASSIST - 09/09/2024 11:17 AM EST Patient made aware. Can we add patient to the cancellation list for Cardiology? Also Dr. Berman echo was done today, please review when results are in and let patient know. * Telephone Encounter - Russ Berman MD - 09/08/2024 11:27 AM EST Marcus did not show a fib but did show frequent SVT which is what he is feeling. I sent in a beta michelle for him to start until he sees cardiology. documented in this encounter Plan of Treatment Upcoming Encounters Date Type Department Care Team (Latest Contact Info) Description 09/14/2024 8:15 AM EST Office Visit Urology, [facility] [address] [place] [address] Cash Robertson MD [address] [place] [address] 11/21/2024 1:20 PM EST Hospital Encounter OR [facility], Operating Room [facility] [address] [place] [address] Ancelmo Baires, DO [address] [place] [address] 11/21/2024 1:20 PM EST - 11/21/2024 1:45 PM EST Surgery OR [facility], Operating Room [facility] [address] [place] [address] Ancelmo Baires, DO [address] [place] [address] INJECTION SACROILIAC JOINT 01/10/2025 11:00 AM EDT Office Visit Cardiology, [facility] [address] [place] [address] Esteban Ortega, DO [address] [place] [address] Scheduled Procedures Name Priority Associated Diagnoses Date/Ti [...] 07/10/2023, Additional history exists HbA1c 08/26/2025 08/26/2024, 0812/2022, 03/23/2023, Additional history exists Lipid Panel 01/10/2028 [...] this encounter Medical Devices Implanted Type Area Film Laboratory Technician Device Identifier Shelf Expiration Date Model / Serial / Lot Clip-10/11/2014 Implanted: 015 (Quantity not on file) Clip SHEILA [id number] / / Description:Target 360 SOFT coil implanted at [facility]-10/11/2014 Implanted: 015 (Quantity not on file) Clip SHEILA [id number] / / Description:Target 360 SOFT coil implanted at [facility]-10/11/2014 Implanted: 015 (Quantity not on file) Clip SHEILA [id number] / / Description:Target HELICAL U LTRA coil implanted at [facility]-10/11/2014 Implanted: 015 (Quantity not on file) Clip SHEILA [id number] / / Description:Target HELICAL U LTRA coil implanted at [facility]-10/11/2014 Implanted: 015 (Quantity not on file) Clip SHEILA [id number] / / Description:Target 360 ULTRA coil implanted at [facility]-10/11/2014 Implanted: 015 (Quantity not on file) Clip SHEILA [id number] / / Description:Target 360 ULTRA coil implanted at [facility]-10/11/2014 Implanted: 015 (Quantity not on file) Clip SHEILA [id number] / / Description:Target HELICAL U LTRA coil implanted at [facility] Lens Intraoc 20.5 - [id number] - [id number] Implanted:Qty: 1 on 05/21/2021 by Geoffrey Sawyer MD at OR [facility] Right: Eye BAUSCH & LOMB 02/25/2026 [id number] / [id number] / Lens Intraoc 20.5 - [id number] - [id number] Implanted:Qty: 1 on 05/28/2021 by Geoffrey Sawyer MD at OR [facility] Left: Eye BAUSCH & LOMB 02/25/2026 [id number] / [id number] / [id number] documented as of this encounter Care Teams Weight Reduction Specialist Relationship Specialty Start Date End Date Russ Beramn MD [address] [address] PCP - General Family Medicine 08/12/23 documented as of this encounter
--- OUTSIDE RECORDS SUMMARY | 2024-12-17 12:47 | External Medical Summary | Summary of Care ---
Author Name Unknown Organization [facility] Address [address] [facility] [place] [address] Phone [phone] Care Team Providers Care Deputy Fire Marshal Name Role Phone Israel Oliver MD Primary Care Provider [phone] Reason for Visit * Reason Comments eRx-Medication Refill Encounter Details Date Type Department Care Team (Late st Contact Info) Description 12/09/2024 Refill Family Practice [facility] [address] [place] [address] Israel Oliver MD [address] [place] [address] Allergies Active Allergy Reactions Criticality Noted Date Comments Pollen Other (Please comment) Low 01/02/2023 Nasal congestion Prednisone Edema Other,Neuro complications (Please comment) 05/15/2021 Edema to ankles/feet Tingling/numbness documented as of this encounter (statuses as of 12/11/2024) Medications Glucosamine Chondr 1500 Complx Oral Capsule [...] by mouth in the morning. Active Roflumilast (Antiseborrhei c) 0.3 % External FoamIndication s:Seborrheic dermatitis of scalp,Seborrhe ic dermatitis Apply once daily to rash on scalp, ears, and face 60 g 3 4 Active Atorvastatin Calcium 40 MG Oral Tablet (Lipitor) TAKE 1 TABLET EVERY MORNING 90 Tablet 3 4 Active Metoprolol Succinate ER 50 MG Oral Tablet Extended Release 24 Hour (toPROL XL) Take 1 Tablet by mouth in the morning. 90 Tablet 3 5 Active amLODIPine Besylate 5 MG Oral Tablet (Norvasc) TAKE 1 TABLET IN THE MORNING 90 Tablet 2 5 Active amLODIPine Besylate 5 MG Oral Tablet (Norvasc) Take 1 Tablet by mouth in the morning. In the morning.. 90 Tablet 3 4 025 Discontinued documented as of this encounter (statuses as of 12/11/2024) Active Problems Problem Noted Date Diagnosed Date PSVT (paroxysmal supraventricular tachycardia) 1 11/09/2023 PAD (peripheral artery disease) 08/26/2024 Obesity, Class II, BMI 35-39.9, isolated (see ac tual BMI) 09/29/2023 Prostate cancer 09/29/2023 S/P AAA repair 09/29/2023 HTN, goal below 130/80 07/10/2023 Prediabetes 05/11/2023 Overview: Per Prediabetes protocol Dyslipidemia documented as of this encounter (statuses as of 12/11/2024) Resolved Problems Problem Noted Date Diagnosed Date Resolved Date Body mass index (BMI) of 40. 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 Not on jhon e Not on file Not on file Not on file Not on file documented as of this encounter Miscellaneous Notes * Telephone Encounter - Kan Diaz RPh - 12/11/2024 12:32 PM EDT Signed Prescriptions: Disp Refills amLODIPine Besylate 5 MG Oral Tablet (Norv*90 Tab*2 Sig: TAKE 1 TABLET IN THE MORNINGAuthorizing Provider: ISRAEL OLIVER User: KAN DIAZ- documented in this encounter Plan of Treatment Upcoming Encounters Date Type Department Care Team (Late st Contact Info) Description 01/10/2025 11:00 AM EDT Office Visit Cardiology, [facility] [address] [place] [address] Esteban Ortega DO [address] [place] [address] 09/25/2025 8:30 AM EST Office Visit Urology, [facility] [address] [place] [address] Cash Robertson MD [address] [place] [address] Scheduled Procedures Name Priority Associated Diagnoses Date/Ti [...] 07/10/2023, Additional history exists HbA1c 08/26/2025 08/26/2024, 08/12/2022, 03/23/2023, Additional history exists Lipid Panel 01/10/2028 [...] this encounter Medical Devices Implanted Type Area Corner Trimmer Operator Device Identifier Shelf Expiration Date Model / Serial / Lot [facility]-10/11/2014 Implanted: 015 (Quantity not on file) Clip SHEILA [id number] / / Description:Target 360 SOFT coil implanted at [facility]-10/11/2014 Implanted: 015 (Quantity not on file) Clip SHEILA [id number] / / Description:Target 360 SOFT coil implanted at [facility]-10/11/2014 Implanted: 015 (Quantity not on file) Clip SHEILA [id number] / / Description:Target HELICAL U LTRA coil implanted at [facility]-10/11/2014 Implanted: 015 (Quantity not on file) Clip SHEILA [id number] / / Description:Target HELICAL U LTRA coil [facility] Implanted: 015 (Quantity not on file) Clip SHEILA [id number] / / Description:Target 360 ULTRA coil implanted at [facility]-10/11/2014 Implanted: 015 (Quantity not on file) Clip SHEILA [id number] / / Description:Target 360 ULTRA coil implanted at [facility]-10/11/2014 Implanted: 015 (Quantity not on file) Clip SHEILA [id number] / / Description:Target HELICAL U LTRA coil implanted at [facility] Lens Intraoc 20.5 - [id number] - [id number] Implanted:Qty: 1 on 05/21/2021 by Geoffrey Sawyer MD at OR [facility] Right: Eye BAUSCH & LOMB 02/25/2026 [id number] / [id number] / Lens Intraoc 20.5 - [id number] - [id number] Implanted:Qty: 1 on 05/28/2021 by Geoffrey Sawyer MD at OR [facility] Left: Eye BAUSCH & LOMB 02/25/2026 [id number] / [id number] / [id number] documented as of this encounter Care Teams Deputy Fire Marshal Relationship Specialty Start Date End Date Israel Oliver MD [address] [place] [id number] PCP - General Family Medicine 08/12/23 documented as of this encounter
--- OUTSIDE RECORDS SUMMARY | 2024-12-17 12:47 | External Medical Summary | Summary of Care ---
Author Name Unknown Organization [facility] Address [address] [place] [address] Phone [phone] Care Team Providers Care Threshing Department Supervisor Name Role Phone Russ Berman MD Primary Care Provider [phone] Reason for Referral * Evaluate & Treat - Unlimited Visits (Within 10 days (routine)) - Authorized Specialty Diagnoses / Procedures Referred By Contact Referred To Contact Cardiovascular Medicine / Cardiology Diagnoses Palpitations Russ Bemran MD [address] [place] [address] Phone: tel: fax: Referral ID Status Reason Start Date Expiration Date Visits Requested Visits Authorized [id number] Authorized Specialty Services Required 4 999 999 Question Answer Referral Priority Within 10 days (routine) Where should this appointment be scheduled? [facility] To which of the following clinics are you referring your patient? General [facility]iology [facility] * [facility] (Diagnostic Medical) (Within 10 days (routine)) - Pending Review Specialty Diagnoses / Procedures Referred By Contac t Referred To Contact Cardiac Studies Diagnoses Dyspnea on exertion Procedures ECHO, COMPLETE (2D), TRANS-THORACIC Russ Berman MD [address] [address] Phone: tel: fax: Referral ID Status Reason Start Date Expiration Date Visits Requested Visits Authorized [id number] Pending Review Precert 08/26/[phone] Reason for Visit * Reason Comments Short of Breath Pt states he has had ongoing SOB and increased pulse. Pt has had increased stress and states "something is not right" Encounter Details Date Type Department Care Team (Late st Contact Info) Description 08/26/2024 3:00 PM EST Office Visit Family [facility] [address] [place] [address] Russ Berman MD [address] [place] [address] Dyspnea on exertion*; Prediabetes; Palpitations; PAD (peripheral artery disease) ([facility]); HTN, goal below 130/80; Dyslipidemia; Obesity, Class II, BMI 35-39.9, isolated (see actual BMI) Allergies Active Allergy Reactions Criticality Noted Date Comments Pollen Other (Please comment) Low 01/02/2023 Nasal congestion Prednisone Edema Other,Neuro complications (Please comment) 05/15/2021 Edema to ankles/feet Tingling/numbness documented as of this encounter (statuses as of 08/28/2024) Medications Glucosamine Chondr 1500 Complx Oral Capsule [...] in the morning. 90 Tablet 3 4 Active amLODIPine Besylate 5 MG Oral Tablet (Norvasc) Take 1 Tablet by mouth in the morning. In the morning.. 90 Tablet 3 4 Active Roflumilast (Antiseborrhei c) 0.3 % External FoamIndication s:Seborrheic dermatitis of scalp,Seborrhe ic dermatitis Apply once daily to rash on scalp, ears, and face 60 g 3 4 Active Finasteride 5 MG Oral Tablet (Proscar) Take 1 Tablet by mouth in the morning. 90 Tablet 3 4 024 Discontinued documented as of this encounter (statuses as of 08/28/2024) Active Problems Problem Noted Date Diagnosed Date PAD (peripheral artery disease) 08/26/2024 Obesity, Class II, BMI 35-39.9, isolated (see ac tual BMI) 09/29/2023 Prostate cancer 09/29/2023 S/P AAA repair 09/29/2023 HTN, goal below 130/80 07/10/2023 Prediabetes 05/11/2023 Overview: Per Prediabetes protocol Dyslipidemia documented as of this encounter (statuses as of 08/28/2024) Resolved Problems Problem Noted Date Diagnosed Date Resolved Date Body mass index (BMI) of 40. 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 Not on file Not on file Not on jhon e Not on file Not on file Not on file Not on file documented as of this encounter Last Filed Vital Signs Vital Sign Reading Time Taken Comments Blood Pressure 136/62 08/26/2024 2:47 PM EST Pulse 104 08/26/2024 2:47 PM EST Temperature 36.7 °C (98.1 °F) 08/26/2024 2:47 PM ES T Respiratory Rate 18 08/26/2024 2:47 PM EST Oxygen Saturation 96% 08/26/2024 2:47 PM EST Inhaled Oxygen Concentration - - Weight 125.6 kg (277 lb) 08/26/2024 2:47 PM EST Height 177.8 cm (5' 10") 08/26/2024 2:47 PM EST Body Mass Index 39.75 08/26/2024 2:47 PM EST documented in this encounter Progress Notes * Russ Berman MD - 08/28/2024 12:48 PM EST SUBJECTIVE: Christopher Bahena Dearmkunal is a 73 year old male. Chief Complaint Patient presents with Short of Breath Pt states he has had ongoing SOB and increased pulse. Pt has had increased stress and states "something is not right" HPI: Christopher is here for evaluation of increasing [...] that lasts. He denies increased peripheral edema. Patient Active Problem List Diagnosis Dyslipidemia Prediabetes HTN, goal below 130/80 Obesity, Class II, BMI 35-39.9, isolated (see actual BMI) Prostate cancer (HCC) S/P AAA repair PAD (peripheral artery disease) ([facility]) Current Outpatient Medications Medication Sig Dispense Refill [...] 1 Capsule by mouth in the morning. Atorvastatin Calcium 40 MG Oral Tablet (Lipitor) Take 1 Tablet by mouth in the morning. 90 Tablet 3 amLODIPine Besylate 5 MG Oral Tablet (Norvasc) Take 1 Tablet by mouth in the morning. In the morning.. 90 Tablet 3 Roflumilast (Antiseborrheic) 0.3 % External Foam Apply once daily to rash on scalp, ears, and face 60 g 3 No current facility-administered medications for this visit. Allergy: Review of patient's allergies indicates: Allergen Reactions Prednisone Edema Other and Neuro complications (Please comment) Edema to ankles/feet Tingling/numbness Hay Fever [Pollen] Other (Please comment) Nasal congestion OBJECTIVE: BP 136/62 | Pulse 104 | Temp 98.1 °F (36.7 °C) | Resp 18 | Ht 5' 10" (1.778 m) | Wt 277 lb (125.6kg) | SpO2 96% | BMI 39.75 kg/m² | BSA 2.49 m² General: alert, healthy, and no distress Head: Normocephalic, No masses, lesions, tenderness or abnormalities Neck: supple, no adenopathy, no bruits, thyroid normal size, non-tender, without nodularity Lungs: chest symmetric with normal AP diameter, no chest deformities noted, no chest wall tenderness, lungs clear to auscultation Heart: regular rate & rhythm, no murmur, and no gallops Pulses: carotid=2/4 w/o bruits Abdomen: abdomen soft, non-tender, normal bowel sounds, and no masses or organomegaly Extremities: less than 2 second capillary refill, no joint deformities, effusion, or inflammation Neuro Exam: alert & oriented x 3 with fluent speech, no focal motor/sensory deficits, gait normal, reflexes normal and symmetric Skin: skin color, texture, turgor are normal, no rashes or significant lesions ASSESSMENT AND PLAN: (R06.09) Dyspnea on exertion [...] (see actual BMI) Plan: fairly inactive lifestyle Follow up as needed. No other complaints were offered at this time. Russ Berman MD documented in this encounter Nursing Notes * Mary Mcginnis LPN - 08/26/2024 2:47 PM EST The patient has been properly identified by confirmation of name and date of . Chief Complaint Patient presents with Short of Breath Pt states he has had ongoing SOB and increased pulse. Pt has had increased stress and states "something is not right" documented in this encounter Plan of Treatment Upcoming Encounters Date Type Department Care Team (Latest Contact Info) Description 09/09/2024 7:15 AM EST Cardiac Studies Cardiac Studies, [facility] [address] [place] [address] 09/14/2024 8:15 AM EST Office Visit Urology, [facility] [address] [place] [address] Cash Robertson MD [address] [place] [address] 11/21/2024 1:20 PM EST Hospital Encounter [facility], Operating Room [facility] [address] [place] [address] Ancelmo Baires, DO [address] [place] [address] 11/21/2024 1:20 PM EST - 11/21/2024 1:45 PM EST Surgery OR [facility], Operating [facility] [address] [place] [address] Ancelmo Baires, DO [address] [place] [address] INJECTION SACROILIAC JOINT 01/10/2025 11:00 AM EDT Office Visit Cardiology, [facility] [address] [place] [address] Esteban Ortega, DO [address] [place] [address] Scheduled Orders Name Type Priority Associated Diagnoses Orde r Schedule ECHO, COMPLETE (2D), TRANS-THORACIC Echocardiology Routine Dyspnea on exertion Expected: 08/26/2024, Expires: 09/25/2026 EXTERNAL EKG 2 TO 7 DAYS Holter Routine Palpitations Expected: 08/27/2024 (Approximate), Expires: 08/26/2025 Scheduled Procedures Name Priority Associated Diagnoses Date/Ti me INJECTION SACROILIAC JOINT Inflammation of sacroiliac joint (HCC) 11/21/2024 1:20 PM EST COLONOSCOPY FLEXIBLE PROXIMAL DIAGNOSTIC Recall Special screening for malignant neoplasms, colon Scheduled Referrals Name Type Priority Associated Diagnoses Orde r Schedule CARDIOLOGY REFERRAL OP Referral Within 10 days (routine) Palpitations Ordered: 08/26/2024 Health Maintenance Due Date Last Done Comments [...] this encounter Medical Devices Implanted Type Area Garbage Collector Driver Device Identifier Shelf Expiration Date Model / Serial / Lot [facility]-10/11/2014 Implanted: 015 (Quantity not on file) Clip SHEILA [id number] / / Description:Target 360 SOFT coil [facility] Implanted: 015 (Quantity not on file) Senait LUYKER [id number] / / Description:Target 360 SOFT coil implanted [facility]-10/11/2014 Implanted: 015 (Quantity not on file) Senait LUYKER [id number] / / Description:Target HELICAL U LTRA [facility] Implanted: 015 (Quantity not on file) Clip SHEILA [id number] / / Description:Target HELICAL U LTRA coil implanted at [facility]-10/11/2014 Implanted: 015 (Quantity not on file) Clip SHEILA [id number] / / Description:Target 360 ULTRA coil implanted at [facility]-10/11/2014 Implanted: 015 (Quantity not on file) Clip SHEILA [id number] / / Description:Target 360 ULTRA coil implanted at [facility]-10/11/2014 Implanted: 015 (Quantity not on file) Clip SHEILA [id number] / / Description:Target HELICAL U LTRA coil implanted at [facility] Lens Intraoc 20.5 - [id number] - [id number] Implanted:Qty: 1 on 05/21/2021 by Geoffrey Sawyer MD at OR [facility] Right: Eye [employer]CH [employer]OMB 02/25/2026 [id number] / [id number] / Lens Intraoc 20.5 - [id number] - [id number] Implanted:Qty: 1 on 05/28/2021 by Geoffrey Sawyer MD at OR [facility] Left: Eye BAUSCH [employer] LOMB 02/25/2026 [id number] / [id number] / [id number] documented as of this encounter Results * TSH WITH FREE T4 IF INDICATED (08/26/2024 3:29 PM EST) Pathologist [facility] TSH 1.17 0.27 - 4.20 uIU/mL 08/26/2024 10:[address] [facility] Blood Venous blood specimen / Unknown Venipuncture / Unknown 08/26/2024 3:29 PM EST 08/26/2024 3:29 PM EST us Russ Berman MD LAB BLOOD ORDERABLES Toshia l Result LAB[facility]ATORY [facility] [address] [place] [address] * (ABNORMAL) HEMOGLOBIN A1C (08/26/2024 3:29 PM EST) Hemoglobin A1C 6.1(H) 4.0 - 5.6 % 08/26/2024 10:[address] [facility] Comment:The use of HbA1c to monitor glycemic status is based on normal hemoglobin and HbA composition. This test should not be used in patients with abnormal hemoglobin that affects the half life of the red blood cell or the in vivo glycation rates. Estimated Average Glucose 128(H) <126 mg/dL 08/26/2024 10:[address] [facility] Blood Venous blood specimen / Unknown Venipuncture / Unknown 08/26/2024 3:29 PM EST 08/26/2024 3:29 PM EST Russ Berman MD LAB BLOOD ORDERABLES Toshia l Result LABORATORY [facility] [address] [place] [address] documented in this encounter Visit Diagnoses Diagnosis Dyspnea on exertion- Primary Other dyspnea and respiratory abnormality Prediabetes Other abnormal glucose Palpitations PAD (peripheral artery disease) (HCC) Peripheral vascular disease, unspecified HTN, goal below 130/80 Unspecified essential hypertension Dyslipidemia Other and unspecified hyperlipidemia Obesity, Class II, BMI 35-39.9, isolated (see actual BMI) Morbid obesity Inflammation of sacroiliac joint (HCC) Sacroiliitis, not elsewhere classified documented in this encounter Care Teams Threshing Department Supervisor Relationship Specialty Start Date End Date Russ Berman MD [address] [facility] [place] [address] PCP - General Family Medicine 08/12/23 documented as of this encounter
--- OUTSIDE RECORDS SUMMARY | 2024-12-17 12:47 | External Medical Summary ---
Author Name Unknown Address Unknown Organization [id number]:[facility] [address] [place] [address] Laboratory Report Ordering Provider Test Date Status LEMUEL NGUYEN 12/16/2024 14:11:05 Final Observation Date Value Abnormality Reference (Units ) Status BUN 12/16/2024 14:11:05 17 6-20 (mg/dL) Final Creatinine 12/16/2024 14:11:05 1.3 Above high normal 0.6-1.2 (mg/dL) Final Glomerular filtration rate/1.73 sq M.predicted [Volume Rate/Area] in Serum, Plasma or Blood by Creatinine-based formula (CKD-EPI) 12/16/2024 14:11:05 57 Below low normal >=60 (mL/min) Final eGFR is calculated based on the CKD-EPI 2020 equation. Sodium 12/16/2024 14:11:05 138 135-146 (m mol/L) Final Potassium 12/16/2024 14:11:05 4.7 3.5-5.1 (m mol/L) Final Cl 12/16/2024 14:11:05 103 98-107 (mm ol/L) Final CO2 12/16/2024 14:11:05 23 22-32 (mmo l/L) Final Anion gap 12/16/2024 14:11:05 12 7-15 (mmol /L) Final Glucose 12/16/2024 14:11:05 101 70-120 (mg /dL) Final Albumin 12/16/2024 14:11:05 4.2 3.8-5.0 (g /dL) Final AST (Aspartate aminotransferase) 12/16/2024 14:11:05 21 10-50 (U/L) Final Alk Phos 12/16/2024 14:11:05 83 35-130 (U/ L) Final Bilirubin, Total 12/16/2024 14:11:05 0.9 <=1 .2 (mg/dL) Final Calcium 12/16/2024 14:11:05 9.5 8.4-10.2 ( mg/dL) Final Protein 12/16/2024 14:11:05 6.3 6.0-8.3 (g /dL) Final ALT (Alanine aminotransferase) 12/16/2024 14:11:05 33 10-50 (U/L) Final [facility] Location [facility] [place] [address]
--- OUTSIDE RECORDS SUMMARY | 2024-12-17 12:47 | External Medical Summary ---
Author Name Unknown Address Unknown Organization [id number]:[facility] [address] [place] [address] Laboratory Report Ordering Provider Test Date Status LEMUEL NGUYEN 12/16/2024 14:11:05 Final Observation Date Value Abnormality Reference (Units ) Status WBC, Total 12/16/2024 14:11:05 4.99 4.00-10.8 0 (K/uL) Final RBC 12/16/2024 14:11:05 1.70 4.50-5.25 (M/uL) Final Hemoglobin 12/16/2024 14:11:05 6.3 Below low normal 14 .0-16.8 (g/dL) Final Results rechecked.
HCT 12/16/2024 14:11:05 19.9 Below low normal 40. 0-48.4 (%) Final MCV 12/16/2024 14:11:05 117.1 82.0-99.5 (fL) Final MCH 12/16/2024 14:11:05 37.1 27.0-34.0 (pg) Final MCHC 12/16/2024 14:11:05 31.7 32.0-36.0 (g/dL) Final RDW 12/16/2024 14:11:05 14.7 11.5-15.5 (%) Final Platelets 12/16/2024 14:11:05 381 140-400 (K /uL) Final MPV 12/16/2024 14:11:05 8.9 6.6-11.1 ( fL) Final Performing Location [facility] [address] [place] [address]
--- OUTSIDE RECORDS SUMMARY | 2024-12-17 12:47 | External Medical Summary ---
Author Name Unknown Address Unknown Organization [id number]:[facility] - [address] [place] [address] Laboratory Report Ordering Provider Test Date Status SHAMAR EUGENE 12/16/2024 14:11:05 Final Observation Date Value Abnormality Reference (Units ) Status PSA 12/16/2024 14:11:05 0.38 <4.10 (ng/ mL) Final Performing Location [facility] - [address] [place] [address]
--- OUTSIDE RECORDS SUMMARY | 2024-12-17 12:47 | External Medical Summary ---
Author Name Unknown Address Unknown Organization [id number]:LABORATORY [facility] - [address] [place] [address] Laboratory Report Ordering Provider Test Date Status LEMUEL NGUYEN 12/16/2024 14:11:05 Final Observation Date Value Abnormality Reference (Units ) Status TSH 12/16/2024 14:11:05 1.32 0.27-4.20 (uIU/mL) Final Performing Location LABORATORY [facility] - [address] [place] [address]
--- OUTSIDE RECORDS SUMMARY | 2024-12-17 12:47 | External Medical Summary | Summary of Care ---
Author Name Unknown Organization [facility] Address [address] [facility] [place] [address] Phone [phone] Care Team Providers Care Campaign Fundraiser Name Role Phone Israel Oliver MD Primary Care Provider [phone] Reason for Visit * Reason Comments Follow Up Encounter Details Date Type Department Care Team (Late st Contact Info) Description 09/14/2024 8:15 AM EST Office Visit Urology, [facility] [address] [facility] [place] [address] Cash Robertson MD [address] [facility] [place] [address] Prostate cancer (HCC)*; Elevated prostate specific antigen (PSA) Allergies Active Allergy Reactions Criticality Noted Date Comments Pollen Other (Please comment) Low 01/02/2023 Nasal congestion Prednisone Edema Other,Neuro complications (Please comment) 05/15/2021 Edema to ankles/feet Tingling/numbness documented as of this encounter (statuses as of 09/14/2024) Medications Glucosamine Chondr 1500 Complx Oral Capsule [...] the morning. 30 Tablet 5 09/08/2024 Active Atorvastatin Calcium 40 MG Oral Tablet (Lipitor) TAKE 1 TABLET EVERY MORNING 90 Tablet 3 09/13/2024 Active documented as of this encounter (statuses as of 09/14/2024) Active Problems Problem Noted Date Diagnosed Date PSVT (paroxysmal supraventricular tachycardia) 1 11/09/2023 PAD (peripheral artery disease) 08/26/2024 Obesity, Class II, BMI 35-39.9, isolated (see ac tual BMI) 09/29/2023 Prostate cancer 09/29/2023 S/P AAA repair 09/29/2023 HTN, goal below 130/80 07/10/2023 Prediabetes 05/11/2023 Overview: Per Prediabetes protocol Dyslipidemia documented as of this encounter (statuses as of 09/14/2024) Resolved Problems Problem Noted Date Diagnosed Date Resolved Date Body mass index (BMI) of 40. 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 His past notes are reviewed. His past notes are reviewed. Prostate cancer: Presented locally May 2023. Previously using finasteride, stopped summer 2023. Bola 3+3 CAP noted on biopsy, managed with . XRT completed Apr 2024 Prostate biopsy Sep 2023: F Right mid 2 3.9 Prostatic adenocarcinoma, 80% pattern 4 4+3=7 3 Yes 25% G Right apex 3 3.2 Prostatic adenocarcinoma, 80% pattern 4 4+3=7 3 Yes 90% PSMA scan Jun 2023: IMPRESSION 1. Right prostate apex radiotracer avid nodule most consistent with prostate cancer. No evidence oflocal, regional or distant metastatic disease. 2. Infrarenal abdominal aortic aneurysm as described. Correlate with any prior available imaging todetermine stability. PSA Results: PSA <28 Aug 2024 per patient report. Lab Results Component Value Date/Time PSA - [facility] 3.45 02/03/2024 07:31 AM PSA - [facility] 10.08 (H) 08/27/2023 03:26 PM PSA - [facility] 16.73 (H) 06/08/2023 04:35 PM PSA - [facility] 1.52 03/08/2007 11:03 AM PSA - [facility] 1.57 02/24/2006 10:12 AM PSA - [facility] 1.32 04/07/2002 12:30 PM Current Outpatient Medications Medication Sig Dispense Refill [...] 1 Capsule by mouth in the morning. amLODIPine Besylate 5 MG Oral Tablet (Norvasc) Take 1 Tablet by mouth in the morning. In the morning.. 90 Tablet 3 Roflumilast (Antiseborrheic) 0.3 % External Foam Apply once daily to rash on scalp, ears, and face 60 g 3 Metoprolol Succinate ER 25 MG Oral Tablet Extended Release 24 Hour (toPROL XL) Take 1 Tablet by mouth in the morning. 30 Tablet 5 Atorvastatin Calcium 40 MG Oral Tablet (Lipitor) TAKE 1 TABLET EVERY MORNING 90 Tablet 3 No current facility-administered medications for this visit. Review of patient's allergies indicates: Allergen Reactions Prednisone Edema Other and Neuro complications (Please comment) Edema to ankles/feet Tingling/numbness Hay Fever [Pollen] Other (Please comment) Nasal congestion Social History: Social History Tobacco Use Smoking status: Former Current packs/day: 0.00 Average packs/day: 0.5 packs/day for 28.0 years (14.0 ttl pk-yrs) Types: Cigarettes Start date: 03/08/1995 Quit date: 03/08/2023 Years since quittin.5 Smokeless tobacco: Former Types: Chew Substance Use Topics Alcohol use: Yes Comment: 2 per year Vaping/E-Cigarette Use Vaping/E-Cigarette Use Never User Vaping/E-Cigarette Substances Vaping/E-Cigarette Devices Family History Problem Relation Name Age of Onset Dementia Mother Heart Disorder Father age 38 w/ 1st [place], 3 addl, from [place] Age 72 Fibromyalgia Sister Dawnea Lupus Sister Dawnea Diabetes Sister Rosette Obesity Sister Rosette Heart Disorder Uncle (Unspecified) from [place] age 36 Heart Disorder Uncle (Unspecified) 1st [place] age 40, addl 2 [place]'s Past Surgical History: Procedure Laterality Date ARTHROSCOPY OF JOINT Right knee BRAIN ANEURYSM REPR, SIMPLE COLONOSCOPY 09/28/2003 normal, repeat in 10 years. INFORMATION malignant cyst removed. INJECT DX/THER SUBSTANCE INTERLAMINAR LUMBAR/SACRAL W IMAGE GUIDE 07/08/2024 INJECTION SPINE LUMBAR OR SACRAL performed by Ancelmo Baires DO at OR [facility] REMOVE CATARACT, INSERT LENS PROSTH Right 05/21/2021 right EXTRACAPSULAR CATARACT REMOVAL WITH INTRAOCULAR LENS performed by Geoffrey Sawyer MD at OR [facility] REMOVE CATARACT, INSERT LENS PROSTH Left 05/28/2021 left EXTRACAPSULAR CATARACT REMOVAL WITH INTRAOCULAR LENS performed by Geoffrey Sawyer MD at OR [facility] Past Medical History: Diagnosis Date AAA (abdominal aortic aneurysm) ([facility]) 2014 Allergies History of hemorrhagic stroke with residual hemiparesis ([facility]) 2017 HTN, goal below 140/90 Mixed dyslipidemia Obesity, Class II, BMI 35-39.9, isolated (see actual BMI) 09/29/2023 PAD (peripheral artery disease) ([facility]) 08/26/2024 Prostate cancer ([facility]) 09/29/2023 PSA elevation PSVT (paroxysmal supraventricular tachycardia) ([facility]) 09/08/2024 S/P AAA repair 09/29/2023 Patient Active Problem List Diagnosis Dyslipidemia Prediabetes HTN, goal below 130/80 Obesity, Class II, BMI 35-39.9, isolated (see actual BMI) Prostate cancer ([facility]) S/P AAA repair PAD (peripheral artery disease) ([facility]) PSVT (paroxysmal supraventricular tachycardia) ([facility]) Constitutional: (-) fever and (-) chills Eyes: (+) corrective lenses Male : see HPI Neurology: (-) negative: no focal neurologic defect Psychiatry: (-) negative: no depression or anxiety Physical Exam Nursing note reviewed. Constitutional: General: He is not in acute distress. Appearance: Normal appearance. He is obese. He is not ill-appearing or toxic-appearing. HENT: Head: Normocephalic and atraumatic. Right Ear: External ear normal. Left Ear: External ear normal. Nose: Nose normal. Mouth/Throat: Mouth: Mucous membranes are moist. Eyes: Extraocular Movements: Extraocular movements intact. Cardiovascular: Pulses: Normal pulses. Pulmonary: Effort: Pulmonary effort is normal. No respiratory distress. Abdominal: Palpations: Abdomen is soft. Tenderness: There is no abdominal tenderness. Musculoskeletal: Cervical back: Normal range of motion and neck supple. Lymphadenopathy: Cervical: No cervical adenopathy. Skin: Coloration: Skin is not cyanotic or pale. Neurological: Mental Status: He is alert and oriented to person, place, and time. Motor: No weakness. Gait: Gait normal. Psychiatric: Attention and Perception: Attention normal. Mood and Affect: Mood and affect normal. Impression/Plan: 73 yo male with upgrade CAP s/p XRT Apr 2024. Has visit with Rad Onc in 6 months, we will see in a year. Prefers not to take finasteride if not needed. Patient pleased with his results. Contact us with any deterioration. Above content is personally reviewed. Patient vocalizes good understanding of the treatment plan. Cash Robertson MD 7:17 AM 09/14/2024 documented in this encounter Nursing Notes * Demetrice Hopkins LPN - 09/14/2024 7:53 AM EST 6 month ret CAP, post xrt PSA Results: Lab Results Component Value Date/Time PSA - [facility] 3.45 02/03/2024 07:31 AM PSA - [facility] 10.08 (H) 08/27/2023 03:26 PM PSA - [facility] 16.73 (H) 06/08/2023 04:35 PM PSA - [facility] 1.52 03/08/2007 11:03 AM PSA - [facility] 1.57 02/24/2006 10:12 AM PSA - [facility] 1.32 04/07/2002 12:30 PM No concerns documented in this encounter Plan of Treatment Upcoming Encounters Date Type Department Care Team (Latest Contact Info) Description 11/21/2024 1:20 PM EST Hospital Encounter OR [facility], Operating Room [facility] [address] [place] [phone] Ancelmo Baires, DO [address] [place] [phone] 11/21/2024 1:20 PM EST - 11/21/2024 1:45 PM EST Surgery OR [facility], Operating Room [facility] [address] [place] [phone] Ancelmo Baires, DO [address] [place] [address] INJECTION SACROILIAC JOINT 01/10/2025 11:00 AM EDT Office Visit Cardiology, [facility] [address] [place] [address] Esteban Ortega, DO [address] [place] [address] 09/25/2025 8:30 AM EST Office Visit Urology, [facility] [address] [place] [address] Cash Robertson MD 27 [place] [address] Scheduled Orders Name Type Priority Associated Diagnoses Orde r Schedule PSA Lab Routine Prostate cancer (HCC) Elevated prostate specific antigen (PSA) Expected: 08/28/2025 (Approximate), Expires: 09/14/2025 Scheduled Procedures Name Priority Associated Diagnoses Date/Ti [...] this encounter Medical Devices Implanted Type Area Pile Trimmer Device Identifier Shelf Expiration Date Model / Serial / Lot Clip-10/11/2014 Implanted: 015 (Quantity not on file) Senait SOSA [id number] / / Description:Target 360 SOFT coil implanted at [facility]-10/11/2014 Implanted: 015 (Quantity not on file) Clip SHEILA [id number] / / Description:Target 360 SOFT coil implanted at [facility]-10/11/2014 Implanted: 015 (Quantity not on file) Clip SHEILA [id number] / / Description:Target HELICAL U LTRA coil implanted at [facility]-10/11/2014 Implanted: 015 (Quantity not on file) Clip SHEILA [id number] / / Description:Target HELICAL U LTRA coil implanted at [facility]-10/11/2014 Implanted: 015 (Quantity not on file) Clip SHEILA [id number] / / Description:Target 360 ULTRA coil implanted at [facility]-10/11/2014 Implanted: 015 (Quantity not on file) Clip SHEILA [id number] / / Description:Target 360 ULTRA coil implanted at [facility]-10/11/2014 Implanted: 015 (Quantity not on file) Clip SHEILA [id number] / / Description:Target HELICAL U LTRA coil implanted at [facility] Lens Intraoc 20.5 - [id number] - [id number] Implanted:Qty: 1 on 05/21/2021 by Geoffrey Sawyer MD at OR [facility] Right: Eye [employer]CH [employer] LOMB 02/25/2026 [id number] / [id number] / Lens Intraoc 20.5 - [id number] - [id number] Implanted:Qty: 1 on 05/28/2021 by Geoffrey Sawyer MD at OR [facility] Left: Eye BAUSCH & LOMB 02/25/2026 [id number] / [id number] / [id number] documented as of this encounter Visit Diagnoses Diagnosis Prostate cancer (HCC)- Primary Malignant neoplasm of prostate Elevated prostate specific antigen (PSA) Inflammation of sacroiliac joint (HCC) Sacroiliitis, not elsewhere classified documented in this encounter Care Teams Campaign Fundraiser Relationship Specialty Start Date End Date Israel Oliver MD [address] [place] [address] PCP - General Family Medicine 08/12/23 documented as of this encounter
--- OUTSIDE RECORDS SUMMARY | 2024-12-17 12:47 | External Medical Summary ---
Author Name Unknown Address Unknown Organization K01:[facility]ORY [facility] - [address] [place] [address] Laboratory Report Ordering Provider Test Date Status BENITO WOOD 08/26/2024 15:29:55 Final Observation Date Value Abnormality Reference (Units ) Status TSH 08/26/2024 15:29:55 1.17 0.27-4.20 (uIU/mL) Final Performing Location LABORATORY C - [address] [place] [address]
--- OUTSIDE RECORDS SUMMARY | 2024-12-17 12:47 | External Medical Summary | Summary of Care ---
Author Name Unknown Organization [facility] Address [address] [place] [facility] [place] [place] [address] Phone [phone] Care Team Providers Care Casting And Locker Room Servicer Name Role Phone Russ Berman MD Primary Care Provider [phone] Reason for Visit * Reason Comments Outpatient Testing Encounter Details Date Type Department Care Team (Late st Contact Info) Description 08/26/2024 3:40 PM EST Laboratory [facility] [address] [facility] [address] [facility] [address] Prediabetes; Palpitations Allergies Active Allergy Reactions Criticality Noted Date Comments Pollen Other (Please comment) Low 01/02/2023 Nasal congestion Prednisone Edema Other,Neuro complications (Please comment) 05/15/2021 Edema to ankles/feet Tingling/numbness documented as of this encounter (statuses as of 08/26/2024) Medications Glucosamine Chondr 1500 Complx Oral Capsule [...] as of this encounter (statuses as of 08/26/2024) Active Problems Problem Noted Date Diagnosed Date PAD (peripheral artery disease) 08/26/2024 Obesity, Class II, BMI 35-39.9, isolated (see ac tual BMI) 09/29/2023 Prostate cancer 09/29/2023 S/P AAA repair 09/29/2023 HTN, goal below 130/80 07/10/2023 Prediabetes 05/11/2023 Overview: Per Prediabetes protocol Dyslipidemia documented as of this encounter (statuses as of 08/26/2024) Resolved Problems Problem Noted Date Diagnosed Date Resolved Date Body mass index (BMI) of 40. 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 Not on file Not on jhon e Not on file Not on file Not on file Not on file documented as of this encounter Plan of Treatment Upcoming Encounters Date Type Department Care Team (Latest Contact Info) Description 09/09/2024 7:15 AM EST Cardiac Studies Cardiac Studies, [facility] [address] [place] [address] 09/14/2024 8:15 AM EST Office Visit Urology, [facility] [address] [place] [address] Cash Robertson MD [address] [place] [address] 11/21/2024 1:20 PM EST Hospital Encounter OR [facility], Operating Room [facility] [address] [place] [phone] Ancelmo Baires DO [address] [place] [phone] 11/21/2024 1:20 PM EST - 11/21/2024 1:45 PM EST Surgery OR [facility], Operating Room [facility] [address] [place] [phone] Ancelmo Baires, DO [address] [place] [phone] INJECTION SACROILIAC JOINT 01/10/2025 11:00 AM EDT Office Visit Cardiology, [facility] [address] [place] [address] Esteban Ortega, DO [address] [place] [address] Pending Results Name Type Priority Associated Diagnoses Date /Time HEMOGLOBIN A1C Lab Routine Prediabetes 08/26/2024 3:29 PM EST TSH WITH FREE T4 IF INDICATED Lab Routine Palpitations 08/26/2024 3:29 PM EST Scheduled Procedures Name Priority Associated Diagnoses Date/Ti [...] Tdap) 10/03/2023 10/03/2013 Depression Screening 01/03/2024 01/02/2023 HbA1c 05/01/2024 05/01/2023, 02/27, 06/21/2002 COVID-19 Vaccine ( season) 2024 07/23/2022, 04/24/2022, 08/27/2021, Additional history exists Influenza Vaccine (FLU shot) (#1) 2024 07/23/2022 GFR 08/12/2024 08/12/2023, 06/29, 07/10/2023, Additional history exists Lipid Panel 01/10/2028 01/09/2023, 02/26, 02/24/2006, Additional history exists Pneumococcal Vaccine: 65+ Years Completed 11/01/2018, 10/13/2016, 05/12/2016, Additional history exists AAA Screening Completed 02/02/2023, 0504/2023, 01/05/2023, Additional history exists HPV (Gardasil) Vaccine Aged Out No lo nger eligible based on patient's age to complete this topic Hepatitis B Vaccine Aged Out No longe r eligible based on patient's age to complete this topic MENINGOCOCCAL (MENACTRA/MENVEO) Aged Out No longer eligible based on patient's age to complete this topic documented as of this encounter Medical Devices Implanted Type Area [place] Tower Loader Device Identifier Shelf Expiration Date Model / Serial / Lot [facility]-10/11/2014 Implanted: 015 (Quantity not on file) Clip SHEILA [id number] / / Description:Target 360 SOFT coil implanted at [facility]-10/11/2014 Implanted: 015 (Quantity not on file) Clip SHEILA [id number] / / Description:Target 360 SOFT coil implanted at [facility]-10/11/2014 Implanted: 015 (Quantity not on file) Clip SHEILA [id number] / / Description:Target HELICAL U LTRA coil implanted at [facility]-10/11/2014 Implanted: 015 (Quantity not on file) Clip SHEILA [id number] / / Description:Target HELICAL U LTRA coil implanted at [facility]-10/11/2014 Implanted: 015 (Quantity not on file) Clip SHEILA [id number] / / Description:Target 360 ULTRA coil implanted at [facility]-10/11/2014 Implanted: 015 (Quantity not on file) Clip SHEILA [id number] / / Description:Target 360 ULTRA coil implanted at [facility]-10/11/2014 Implanted: 015 (Quantity not on file) Clip SHEILA [id number] / / Description:Target HELICAL U LTRA coil implanted at [facility] Lens Intraoc 20.5 - [id number] - [id number] Implanted:Qty: 1 on 05/21/2021 by Geoffrey Sawyer MD at OR [facility] Right: Eye BAUSCH & LOMB 02/25/2026 [id number] / [id number] / Lens Intraoc 20.5 - [id number] - [id number] Implanted:Qty: 1 on 05/28/2021 by Geoffrey Sawyer MD at OR [facility] Left: Eye BAUSCH & LOMB 02/25/2026 [id number] / [id number] / [id number] documented as of this encounter Visit Diagnoses Diagnosis Prediabetes Other abnormal glucose Palpitations Inflammation of sacroiliac joint (HCC) Sacroiliitis, not elsewhere classified documented in this encounter Care Teams Casting And Locker Room Servicer Relationship Specialty Start Date End Date Russ Berman MD [address] [facility] [place] [address] PCP - General Family Medicine 08/12/23 documented as of this encounter
--- OUTSIDE RECORDS SUMMARY | 2024-12-17 12:47 | External Medical Summary ---
Author Name Unknown Address Unknown Organization K01:LABORATORY [facility] - [address] [facility] [address] Laboratory Report Ordering Provider Test Date Status BENITO WOOD 08/26/2024 15:29:55 Final Observation Date Value Abnormality Reference (Units ) Status HbA1C 08/26/2024 15:29:55 6.1 Above high normal 4. 0-5.6 (%) Final The use of HbA1c to monitor glycemic status is based on normal hemoglobin and HbA composition. This test should not be used in patients with abnormal hemoglobin that affects the half life of the red blood cell or the in vivo glycation rates. Glucose, estimated average 08/26/2024 15:29:55 128 Above high normal <126 (mg/dL) Ted alvarenga Performing Location LABORATORY [facility] - [address] [place] [address]
--- OUTSIDE RECORDS SUMMARY | 2024-12-17 12:47 | External Medical Summary | Summary of Care ---
Author Name Unknown Organization [facility] Address [address] [place] [address] Phone [phone] Care Team Providers Care Food Service Worker Hospital Name Role Phone Israel Berman MD Primary Care Provider [phone] Reason for Visit * Reason Comments eRx-Medication Refill Encounter Details Date Type Department Care Team (Late st Contact Info) Description 09/12/2024 Refill Family Practice [facility] [address] [place] [address] Israel Berman MD [address] [place] [address] Allergies Active Allergy Reactions Criticality Noted Date Comments Pollen Other (Please comment) Low 01/02/2023 Nasal congestion Prednisone Edema Other,Neuro complications (Please comment) 05/15/2021 Edema to ankles/feet Tingling/numbness documented as of this encounter (statuses as of 09/13/2024) Medications Glucosamine Chondr 1500 Complx Oral Capsule [...] and face 60 g 3 4 Active Metoprolol Succinate ER 25 MG Oral Tablet Extended Release 24 Hour (toPROL XL) Take 1 Tablet by mouth in the morning. 30 Tablet 5 4 Active Atorvastatin Calcium 40 MG Oral Tablet (Lipitor) TAKE 1 TABLET EVERY MORNING 90 Tablet 3 4 Active Atorvastatin Calcium 40 MG Oral Tablet (Lipitor) Take 1 Tablet by mouth in the morning. 90 Tablet 3 4 024 Discontinued documented as of this encounter (statuses as of 09/13/2024) Active Problems Problem Noted Date Diagnosed Date PSVT (paroxysmal supraventricular tachycardia) 1 11/09/2023 PAD (peripheral artery disease) 08/26/2024 Obesity, Class II, BMI 35-39.9, isolated (see ac tual BMI) 09/29/2023 Prostate cancer 09/29/2023 S/P AAA repair 09/29/2023 HTN, goal below 130/80 07/10/2023 Prediabetes 05/11/2023 Overview: Per Prediabetes protocol Dyslipidemia documented as of this encounter (statuses as of 09/13/2024) Resolved Problems Problem Noted Date Diagnosed Date Resolved Date Body mass index (BMI) of 40. 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 file Not on jhon e Not on file Not on file Not on file Not on file documented as of this encounter Miscellaneous Notes * Telephone Encounter - Adam Laughlin [facility] - 09/13/2024 11:24 AM ESTSigned Prescriptions: Disp Refills Atorvastatin Calcium 40 MG Oral Tablet (Li*90 Tab*3 Sig: TAKE 1 TABLET EVERY MORNINGAuthorizing Provider: ISRAEL BERMAN User: ADAM LAUGHLIN LRefused Prescriptions: Disp Refills amLODIPine Besylate 5 MG Oral Tablet (Norv*90 Tab*3 Sig: TAKE 1 TABLET IN THE MORNINGRefused By: ADAM LAUGHLINeason for Refusal: Too soon------ documented in this encounter Plan of Treatment Upcoming Encounters Date Type Department Care Team (Latest Contact Info) Description 09/14/2024 8:15 AM EST Office Visit Urology, [facility] [address] [place] [address] Cash Robertson MD [address] [place] [address] 11/21/2024 1:20 PM EST Hospital Encounter [facility], Operating Room [facility] [address] [place] [address] Ancelmo Baires, DO [address] [place] [address] 11/21/2024 1:20 PM EST - 11/21/2024 1:45 PM EST Surgery OR [facility], Operating Room [facility] [address] [place] [address] Ancelmo Baires, DO [address] [place] [address] INJECTION SACROILIAC JOINT 01/10/2025 11:00 AM EDT Office Visit Cardiology, [facility] [address] [place] [address] Esteban Ortega, DO [address] [place] [address] Scheduled Procedures Name Priority Associated Diagnoses Date/Ti [...] this encounter Medical Devices Implanted Type Area Steel Floor Pan Placing Supervisor Device Identifier Shelf Expiration Date Model / Serial / Lot Clip-10/11/2014 Implanted: 015 (Quantity not on file) Senait SOSA [id number] / / Description:Target 360 SOFT coil implanted at [facility]10/11/2014 Implanted: 015 (Quantity not on file) Senait LUYKER [id number] / / Description:[facility]10/11/[facility] Implanted: 015 (Quantity not on file) Clip SHEILA [id number] / / Description:Target HELICAL U LTRA coil implanted at [facility]-10/11/2014 Implanted: 015 (Quantity not on file) Clip SHEILA [id number] / / Description:Target HELICAL U LTRA coil implanted at [facility]-10/11/2014 Implanted: 015 (Quantity not on file) Clip SHEILA [id number] / / Description:Target 360 ULTRA coil implanted at [facility]-10/11/2014 Implanted: 015 (Quantity not on file) Clip SHEILA [id number] / / Description:[facility]10/11/2014 Implanted: 015 (Quantity not on file) Clip SHEILA [id number] / / Description:Target HELICAL U LTRA coil implanted at [facility] Lens Intraoc 20.5 - [id number] - [id number] Implanted:Qty: 1 on 05/21/2021 by Geoffrey Sawyer MD at OR [facility] Right: Eye BAUSCH & LOMB 02/25/2026 [id number] / [id number] / Lens Intraoc 20.5 - [id number] - [id number] Implanted:Qty: 1 on 05/28/2021 by Geoffrey Sawyer MD at OR [facility] Left: Eye BAUSCH & LOMB 02/25/2026 [id number] / [id number] / [id number] documented as of this encounter Care Teams Food Service Worker Hospital Relationship Specialty Start Date End Date Israel Berman MD [address] [place] [phone] PCP - General Family Medicine 08/12/23 documented as of this encounter
--- OUTSIDE RECORDS SUMMARY | 2024-12-17 12:47 | External Medical Summary | Summary of Care ---
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 I sent in a beta michelle for him to start until he sees cardiology. documented in this encounter Plan of Treatment Upcoming Encounters Date Type Department Care Team (Latest Contact Info) Description 09/14/2024 8:15 AM EST Office Visit Urology, [facility] [address] [place] [address] Cash Robertson MD [address] [place] [address] 11/21/2024 1:20 PM EST Hospital Encounter OR [facility], Operating Room [facility] [address] [place] [address] Ancelmo Baires, [address] [place] [address] 11/21/2024 1:20 PM EST - 11/21/2024 1:45 PM EST Surgery OR [facility], Operating Room [facility] [address] [place] [address] Ancelmo Baires, [address] [place] [address] INJECTION SACROILIAC JOINT 01/10/2025 11:00 AM EDT Office Visit Cardiology, [facility] [address] [place] [address] Esteban Ortega O, DO [address] [place] [address] Scheduled Procedures Name Priority Associated Diagnoses Date/Ti [...] this encounter Medical Devices Implanted Type Area Meat And Poultry Inspector Device Identifier Shelf Expiration Date Model / Serial / Lot [facility]-10/11/2014 Implanted: 015 (Quantity not on file) Clip SHEILA [id number] / / Description:Target 360 SOFT coil implanted at [facility]-10/11/2014 Implanted: 015 (Quantity not on file) Clip SHEILA [id number] / / Description:Target 360 SOFT coil implanted at [facility]-10/11/2014 Implanted: 015 (Quantity not on file) Clip SHEILA [id number] / / Description:Target HELICAL U LTRA coil implanted at [facility]-10/11/2014 Implanted: 015 (Quantity not on file) Clip SHEILA [id number] / / Description:Target HELICAL U LTRA [facility] Implanted: 015 (Quantity not on file) Clip SHEILA [id number] / / Description:Target 360 ULTRA coil implanted at [facility]-10/11/2014 Implanted: 015 (Quantity not on file) Clip SHEILA [id number] / / Description:Target 360 ULTRA coil implanted at [facility]-10/11/2014 Implanted: 015 (Quantity not on file) Clip SHEILA [id number] / / Description:Target HELICAL U LTRA coil implanted at [facility] Lens Intraoc 20.5 - [id number] - [id number] Implanted:Qty: 1 on 05/21/2021 by Geoffrey Sawyer MD at [facility] Right: Eye BAUSCH & LOMB 02/25/2026 [id number] / [id number] / Lens Intraoc 20.5 - [id number] - [id number] Implanted:Qty: 1 on 05/28/2021 by Geoffrey Sawyer MD at [facility] Left: Eye BAUSCH & LOMB 02/25/2026 [id number] / [id number] / [id number] documented as of this encounter Care Teams Automobile Bumper Straightener Relationship Specialty Start Date End Date Russ Berman MD [address] [place] [phone] PCP - General Family Medicine 08/12/23 documented as of this encounter
--- OUTSIDE RECORDS SUMMARY | 2024-12-17 12:47 | External Medical Summary ---
Author Name Unknown Address Unknown Organization K01:[facility] [address] [place] [address] Laboratory Report Ordering Provider Test Date Status LEMUEL NGUYEN 12/16/2024 14:11:05 Final Observation Date Value Abnormality Reference (Units ) Status LDL, (direct) 12/16/2024 14:11:05 28 <=129 (mg/dL) Final LDL Cholesterol Reference Ra nges (mg/dL):
<70 � � Target level for high risk ASCVD patient
<100 � �Optimal for general population
100-129 Near optimal for general population
130-159 Borderline high
160-189 High
>=190 � Very high Performing Location [facility] - [address] [place] [address]
--- OUTSIDE RECORDS SUMMARY | 2024-12-17 12:47 | External Medical Summary | Summary of Care ---
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 Not on file Not [...] 09/14/2024 8:15 AM EST Office Visit Urology, [facility] [address] [place] [address] Cash Robertson MD [address] [place] [address] 11/21/2024 1:20 PM EST Hospital Encounter OR [facility], Operating Room [facility] [address] [place] [address] Ancelmo Baires, DO [address] [place] [address] 11/21/2024 1:20 PM EST - 11/21/2024 1:45 PM EST Surgery OR [facility], Operating Room [facility] [address] [place] [address] Ancelmo Baires, DO [address] [place] [address] INJECTION SACROILIAC JOINT 01/10/2025 11:00 AM EDT Office Visit Cardiology, [facility] [address] [place] [address] Esteban Ortega, DO [address] [place] [address] Scheduled Procedures Name Priority Associated Diagnoses Date/Ti [...] this encounter Medical Devices Implanted Type Area Bank Note Designer Device Identifier Shelf Expiration Date Model / Serial / Lot Clip-10/11/2014 Implanted: 015 (Quantity not on file) Clip SHEILA [id number] / / Description:Target 360 SOFT coil implanted at [facility]-10/11/2014 Implanted: 015 (Quantity not on file) Clip SHEILA [id number] / / Description:Target 360 SOFT coil implanted at [facility]-10/11/2014 Implanted: 015 (Quantity not on file) Clip SHEILA [id number] / / Description:Target HELICAL U LTRA coil implanted at [facility]-10/11/2014 Implanted: 015 (Quantity not on file) Clip SHEILA [id number] / / Description:Target HELICAL U LTRA coil implanted at [facility]-10/11/2014 Implanted: 015 (Quantity not on file) Clip SHEILA [id number] / / Description:Target 360 ULTRA coil implanted at [facility]-10/11/2014 Implanted: 015 (Quantity not on file) Clip SHEILA [id number] / / Description:Target 360 ULTRA coil implanted at [facility]-10/11/2014 Implanted: 015 (Quantity not on file) Clip SHEILA [id number] / / Description:Target HELICAL U LTRA coil implanted at [facility] Lens Intraoc 20.5 - [id number] - [id number] Implanted:Qty: 1 on 05/21/2021 by Geoffrey Sawyer MD at OR [facility] Right: Eye BAUSCH & LOMB 02/25/2026 [id number] / [id number] / Lens Intraoc 20.5 - [id number] - [id number] Implanted:Qty: 1 on 05/28/2021 by Geoffrey Sawyer MD at OR [facility] Left: Eye BAUSCH & LOMB 02/25/2026 [id number] / [id number] / [id number] documented as of this encounter Care Teams Sports Equipment Repairer Relationship Specialty Start Date End Date Russ Berman MD [address] [place] [address] PCP - General Family Medicine 08/12/23 documented as of this encounter
[2024-12-17] MEDS ORDERED: SODIUM CHLORIDE 0.9% 100 ML IV PRN ×2 (13:05→21:42)
[2024-12-17 13:41] LABS: Hematocrit (blood only) 19.2 % (42.0-52.0); Hemoglobin 6.1 g/dl (14.0-18.0); Mean Corpuscular Hemoglobin 36.5 pg (25.0-34.0); Mean Corpuscular Hgb Conc 31.8 g/dL (32.0-36.0); Mean Platelet Volume 9.2 fL (9.4-12.4); Platelet Count 332 K/uL (130-400); RDW Coefficient of Variation 14.9 % (11.5-14.5); RDW Standard Deviation 62.6 fL (36.4-46.3); Red Blood Count 1.67 M/uL (4.70-6.10)
[2024-12-17 13:45] LABS: Albumin Globulin Ratio 2.1 (0.9-2); Albumin Level 4.2 gm/dl (3.4-5.0); BUN Creatinine Ratio 15.6 (10-20); Bilirubin,Total 0.9 mg/dl (0.2-1.0); Calcium 8.9 mg/dl (8.6-10.3); Creatinine Clr Calc Pharmacy 70.3 ml/min; Magnesium 1.9 mg/dl (1.7-2.4); Potassium 3.7 mmol/L (3.5-5.1); Total Protein 6.2 gm/dl (6.0-8.3)
[2024-12-17 13:52] LABS: Troponin I High Sensitivity 3.8 pg/ml (0-20)
--- NOTE | 2024-12-17 13:53 | Electrocardiogram Report ---
Test Reason : Blood Pressure : */* mmHG Vent. Rate : 85 BPM Atrial Rate : 85 BPM P-R Int : 194 ms QRS Dur : 86 ms QT Int : 362 ms P-R-T Axes : 16 6 27 degrees QTcB Int : 430 ms Normal sinus rhythm Normal ECG No previous ECGs available Confirmed by Russ Justice ([id number]) on 12/17/2024 1:53:16 PM Referred By: Confirmed By: Russ Justice
--- NOTE | 2024-12-17 13:55 | XRay Report ---
XR chest 1V portable CLINICAL HISTORY: weakness COMPARISON STUDY: PET/CT June 29, 2023. FINDINGS: There is no pneumothorax or pleural effusion. There is no consolidation or evidence for pul monary edema. There is moderate cardiomegaly. Lung volumes are normal. IMPRESSION: No acute cardiopulmonary findings. Cardiomegaly. ACT 112: Negative or not required by law. Electronically signed by: Micah Prabhakar M.D. 12/17/2024 1:53 PM
[2024-12-17 14:00] LABS: Basophils # (auto) 0.05 K/uL (0.00-0.20); Basophils % (auto) 1.1 %; Eosinophils # (auto) 0.49 K/uL (0.00-0.50); Eosinophils % (auto) 10.5 %; Immature Granulocytes # (auto) 0.01 K/uL (0.01-0.20); Immature Granulocytes % (auto) 0.2 %; Lymphocytes # (auto) 1.14 K/uL (1.20-3.40); Lymphocytes % (auto) 24.5 %; Macrocytosis Present; Monocytes # (auto) 0.68 K/uL (0.11-0.59); Monocytes % (auto) 14.6 %; Neutrophils # (auto) 2.29 K/uL (1.40-6.50); Neutrophils % (auto) 49.1 %; Ovalocytes 1+; Polychromasia 1+; Tear Drop Cells 1+; White Blood Count 4.66 K/ul (4.8-10.8)
[2024-12-17 14:01] LABS: Thyroid Stimulating Hormone 1.689 uIu/ml (0.300-4.500)
--- NOTE | 2024-12-17 14:57 | History & Physical Report ---
Date of Service December 17, 2024 Assessment & Plan (1) Acute anemia: (2) AAA (abdominal aortic aneurysm): (3) History of prostate cancer: Plan Mr. Sheehan is a 74 year old male with past medical history of CAD, AAA s/p repair 02/2023, HTN, HLD, cerebral artery aneurysm s/p embolization, GERD, prediabetes, prior gastric ulcer, BPH, prostate cancer s/p androgen deprivation therapy/radiation therapy on surveillance, and sacroiliitis s/p MODESTO, admitted for evaluation of symptomatic anemia. #Acute on chronic anemia #Intramural hematoma on CT #prior Gastric ulcer MCV 115, Hgb 6.1, plts 332, coags normal, ldh 122, bili 0.9 TSH WNL, b12 470, folate 14.57 Iron 243, TIBC 304, Ferritin 258.9 No abdominal pain, no tenderness, stable hemodynamics -Consult Vascular: contributory to presentation? FOBT negative PPI BID IV CLD Consult GI given chronic diarrhea, last c-scope 24 years ago, and prior cancer history to assess if inpt cscope warranted Follow up additional anemia labs (reticulocyte, hapto; however, low suspicion for hemolysis) #Hypertension #Palpitations Monitor on tele Continue Metoprolol hold amlodipine #CAD #Cerebral artery aneurysm #HLD continue statin hold asa for now DVT ppx SCDS admit med/tele for eval Admission and Anticipated Discharge Date Admission Date: Time spent evaluating patient, direct bedside care, chart review, placing orders, interpretation of diagnostic studies, discussion with consultants, patient, and family members, as well as other required patient management activities is 75 minutes. History of Present Illness Chief Complaint: Anemia, SOB Primary Care Provider: Russ Berman MD Mr. Sheehan is a 74 year old male with past medical history of CAD, AAA s/p repair 02/2023, HTN, HLD, cerebral artery aneurysm s/p embolization, GERD, prediabetes, prior gastric ulcer, BPH, prostate cancer s/p androgen deprivation therapy/radiation therapy on surveillance, and sacroiliitis s/p MODESTO, presented to [facility] ED due to abnormal outpatient labs. Patient reports undergoing extensive work up due to months of SOB and ADDISON. Patient reports palpitations and progressive fatigue. He denies any melena, hematochezia, hemoptysis, hematemesis, or hematuria. He denies lightheadedness or presyncope. He states that outside of the shortness of breath and the weakness, he cannot pin point any other notable symptoms. He presented to Cardiology for cardiac work up as etiology for this, prompting labs being ordered which revealed 6.3. Takes asa daily, doses report intermittent ibuprofen use 1-2 times weekly. Last labs from patient were in 2022 and baseline hemoglobin was around 10. Patient reports history of transfusion in 2022 after AAA repair. In the ED, vitals were notable for BP of 110s-140s, HR of 70-80s, and O2 sat of high 90s on room air Imaging revealed intramural hematoma, irregular calcific wilson, saccular dilatation and significant ostial stenosis of celiac/SMA EKG NSR, QTc 430 ED interventions: NS, 1 UPRBC Patient to be admitted to med/tele for further evaluation and management of acute anemia Allergies Allergy/AdvReac Type Severity Reaction Status Date / Time prednisone Allergy Intermediate edema Verified 05/06/24 08:12 Home Medications Medication Instructions Recorded Confirmed Type aspirin 81 mg tablet,delayed 81 mg PO DAILY 07/21/23 12/17/24 History release atorvastatin 20 mg tablet (Lipitor) 40 mg PO DAILY 11/03/23 12/17/24 History glucosamine-chondroitin 500 mg-400 1 cap PO DAILY 11/03/23 12/17/24 History mg capsule ibuprofen 200 mg capsule 200 mg PO Q6H PRN Pain 11/03/23 12/17/24 History lactobacillus combination no.9 4 4,000 mmu cells PO DAILY 11/03/23 12/17/24 History billion cell capsule (Adult 50 Plus Probiotic) amlodipine 5 mg tablet 5 mg PO DAILY 03/28/24 12/17/24 History cetirizine 10 mg tablet (Allergy 10 mg PO DAILY PRN Allergy Symptoms 03/28/24 12/17/24 History Relief (cetirizine)) metoprolol succinate 50 mg 50 mg PO DAILY 12/17/24 12/17/24 History tablet,extended release 24 hr Past Med/Surg History Problem List (Updated 12/17/24 @ 18:37 by Mera Perez MD) History of prostate cancer Acute anemia Injury of right thigh Rising PSA level Prostate cancer (Chronic 05/18/15) Biopsy on 05/18/15 AAA (abdominal aortic aneurysm) Medical History (Updated 12/17/24 @ 18:37 by Mera Perez MD) COPD (chronic obstructive pulmonary disease) Dyslipidemia HTN (hypertension) Stroke Surgical History (Updated 07/21/23 @ 09:18 by Kae Mares RN) History of surgery "Due to crushed coccyx" S/P AAA repair 03/09/23 - "Coils" placed due to stroke; History of cataract surgery Bilateral S/P colonoscopy History of surgery Brain aneurysm repair S/P right knee arthroscopy Family History (Updated 07/21/23 @ 09:19 by Kae Mares, COREEN) Mother , 93yo Natural with unknown cause Father , 72yo Myocardial infarction Obesity Diabetes Sister Medical history unknown Sister Medical history unknown Social History (Updated 07/21/23 @ 09:23 by Kae Mares RN) Smoking Status: Former smoker Tobacco Type: Cigarettes Cigarettes Per Day: 1-2 PPD x 53yrs; Do You Dip or Chew Tobacco: No (Chewed leaf tobacco x 8-9 yrs - not now); Hx Alcohol Use: No Hx Substance Use: No Preferred Language: Bhutanese Communication Ability: Effective Visual Impairment: No Limitations Hearing Ability: Normal Grounds Cleaner Required: No Beliefs That Will Affect Care: None marital status: marital status details: 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 Head: (-) headache, (-) dizziness. Eye: (-) blurring of vision, (-) double vision, (-) redness. Ear: (-) hearing loss, (-) discharge, (-) vertigo Nose: (-) discharge, (-) bleeding, (-) congestion, (-) post nasal drip. Throat: (-) sore throat, (-) hoarseness of voice, (-) odynophagia. Cardiovascular: (-) chest pain, (+) palpitations, (-) syncope, (-) orthopnea, (- ) PND, (-) leg swelling. Respiratory: (+) shortness of breath, (-) cough, (-) wheezing, (-) hemoptysis. Neuro: (-) weakness in extremities, (-) numbness, (-) tingling, (-) tremor. Gastrointestinal: (-) belly pain, (-) belly distension, (-) nausea, (-) vomiting, (+) diarrhea, (-) constipation, (-) hematemesis, (-) hematochezia, (-) bowel incontinence Genitourinary: (-) hematuria, (-) dysuria, (-) polyuria, (-) hesitancy, (-) frequency, (-) urinary incontinence. Musculoskeletal: (-) myalgia, (-) arthralgia. Skin: (-) rashes. Endocrine: (-) heat/cold intolerance. Psychiatry: (-) depression, (-) hallucination. Physical Exam Physical Exam: GENERAL APPEARANCE: AxOx4, generally well-appearing male, no acute distress. HEENT: NC, AT. MMM. EOMI, conjunctival pallor oropharynx clear. NECK: Supple without lymphadenopathy. No stiffness or restricted ROM. HEART: Normal rate and regular rhythm, normal S1/S1, no m/r/g LUNGS: CTAB, moving air well. No crackles or wheezes are heard. ABDOMEN: Soft, nontender, nondistended with good bowel sounds heard. BACK: No CVAT, no obvious deformity. EXTREMITIES: Without cyanosis, clubbing or edema. NEUROLOGICAL: Grossly nonfocal. Alert and oriented, moving all 4 extremities. CN not formally tested but appear grossly intact. Skin: Warm and dry without any rash, however, noted pallor . Results & Data Results & Data Vital Signs (Past 12 Hours) Vital Signs Temp Pulse Pulse Resp BP BP Pulse Ox 12/17/24 14:16 79 20 114/56 L 99 12/17/24 13:39 97 H 12/17/24 13:09 98 H 18 97 12/17/24 12:43 36.7 C 98 H 18 127/62 97 O2 Del Method 12/17/24 14:16 Room Air 12/17/24 13:39 12/17/24 13:09 Room Air 12/17/24 12:43 Room Air Laboratory Results Short CBC 12/17/24 Range/Units 13:03 WBC 4.66 L (4.8-10.8) K/ul Hgb 6.1 L* (14.0-18.0) g/dl Hct 19.2 L* (42.0-52.0) % Plt Count 332 (130-400) K/uL BMP 12/17/24 13:03 Sodium 137 Potassium 3.7 Chloride 107 Carbon Dioxide 24 BUN 19 Creatinine 1.22 Glucose 173 H Calcium 8.9 Liver Function 12/17/24 Range/Units 13:03 Total Bilirubin 0.9 (0.2-1.0) mg/dl AST 17 (13-39) U/L ALT 25 (7-52) U/L Alkaline Phosphatase 65 (34-104) U/L Albumin 4.2 (3.4-5.0) gm/dl Diagnostic Findings September 09, 2024 TTE Interpretation Summary (as per Dr. Ortega): The examination is limited quality but adequate for evaluation of the referral indication. The qualitative LV ejection fraction is 60-64% (normal). The LV wall thickness is mildly increased (concentric). The left atrium is mildly enlarged (35-41 ml/m^2). The left ventricular diastolic function is mildly abnormal (grade I). No significant valvular disease is present. The proximal ascending thoracic aorta is normal sized. The aortic root is mildly enlarged, 4.4 cm. CTA abd/p: IMPRESSION: 1. A short segment of mild saccular dilatation of the infrarenal aorta about 34 diameters. 2. Inferior to it, another smaller posterior saccular dilatation of 35 mm in length, with intramural hematoma, yet, irregular calcific wilson, with surrounding minimal stranding, for correlation with prior films if available. 3. Moderate diffuse atheromatous affection of abdominal aorta, with significant ostial stenosis of celiac and SMAs. 4. Mild dilatation of left GALILEO. (18 mm)
[2024-12-17] MEDS: OPTIRAY 320 125ml IV ONE (15:37)
[2024-12-17 16:01] LABS: Immature Retic Fraction 14.4 % (2.3-15.9); Reticulated Hemoglobin 33.6 pg (28.2-36.6); Reticulocyte % 1.76 % (0.50-2.00)
[2024-12-17] MEDS: SODIUM CHLORIDE 0.9% 1,000 ML IV SCH (16:17)
[2024-12-17] MEDS ORDERED: ACETAMINOPHEN 325 MG TAB PO PRN (16:40)
[2024-12-17] MEDS ORDERED: POLYETHYLENE (MIRALAX) 17 GM PACK PO PRN (16:40)
[2024-12-17 16:44] LABS: INR 1.1 (0.9-1.1); Prothrombin Time 11.5 Seconds (9.0-12.0)
[2024-12-17 17:21] LABS: Ferritin 258.9 ng/ml (8-388)
[2024-12-17 17:28] LABS: Folate (Folic Acid),Ser orPlas 14.57 ng/ml (>5.38)
--- NOTE | 2024-12-17 17:32 | CT Scan Report ---
EXAM: CT angio abd pelvis wo/w con CLINICAL HISTORY: Acute anemia hx of AAA TECHNIQUE: CTA of the abdomen and pelvis was performed with and without the administration of IV contrast (115 ml Optiray 320). Coronal and sagittal reconstructive images were also obtained. One of these 3D techniques was utilized: Maximum Intensity Pixel (MIP), 3D Reconstructed Images, Volume Rendered Images, Surface Shaded Rendering. Axial non-contrast sections of the abdomen and pelvis were also obtained. One of the following dose-reduction techniques was utilized for this exam. Automated exposure control, adjustment of the mA and/or kV according to patient size, and use of iterative reconstruction. (CTDI: 28.14 mGy, DLP: 4163.65 mGy*cm) COMPARISON: None. FINDINGS: Aorta: Short 38 mm segment of mild saccular dilatation of infrarenal aorta about 34 diameters. inferior to it, another smaller posterior saccular dilatation of 35 mm in length, with intramural hematoma, yet, irregular calcific wilson, with surrounding minimal stranding. Moderate atheromatous affection of abdominal aorta, with significant ostial stenosis of celiac and SMAs. Mild dilatation of left GALILEO (18 mm) Renal Arteries: Renal arteries are normal in size and opacification. No evidence of stenosis or occlusion. Symmetric perfusion of both kidneys. Mesenteric Arteries: The superior mesenteric artery (SMA) and inferior mesenteric artery (DEMAR) are normal in caliber and opacification. Significant stenosis at its orgiin Celiac Artery: The Celiac artery is normal in caliber and opacification. Significant stenosis at its orgiin Iliac Arteries: Common, internal, and external iliac arteries are normal in caliber and opacification. No evidence of stenosis, aneurysm, or occlusion. Venous Structures: Inferior vena cava (IVC) and major venous structures are normal in caliber and opacification. No evidence of thrombus or obstruction. Liver: Normal size and morphology. Homogeneous enhancement post-contrast. No focal hepatic lesions. Gallbladder and Biliary System: Normal appearance of the gallbladder and biliary ducts. No stones or dilatation. Pancreas: Normal size and contour. Homogeneous enhancement post-contrast. No masses or cystic lesions. Spleen: Normal size and appearance. Homogeneous enhancement post-contrast. Adrenal Glands: Normal size and morphology bilaterally. No adrenal masses. Kidneys and Ureters: Normal size, shape, and position of both kidneys. Homogeneous enhancement post-contrast. No renal stones, or hydronephrosis. Small cortical cysts. Ureters are unremarkable. Bladder: Normal in size and wall thickness. No intraluminal masses. Normal enhancement post-contrast. Bowel: Normal appearance of the visualized bowel loops. No evidence of obstruction, wall thickening, or abnormal dilatation. Lymph Nodes: No pathologically enlarged lymph nodes in the abdomen or pelvis. Peritoneum: No free fluid or free air in the abdomen. Bones: Moderate Spinal spondylotic changes with osteophytes. Soft Tissues: Normal appearance of the visualized soft tissues. IMPRESSION: 1. A short segment of mild saccular dilatation of the infrarenal aorta about 34 diameters. 2. Inferior to it, another smaller posterior saccular dilatation of 35 mm in length, with intramural hematoma, yet, irregular calcific wilson, with surrounding minimal stranding, for correlation with prior films if available. 3. Moderate diffuse atheromatous affection of abdominal aorta, with significant ostial stenosis of celiac and SMAs. 4. Mild dilatation of left GALILEO. (18 mm) Electronically signed by Chepe Olmos 12-17-2024 5:32 PM
--- NOTE | 2024-12-17 19:12 | Emergency Department Note ---
Impression & Plan Acute anemia ED Provider Note CHIEF COMPLAINT: Abnormal labs HISTORY OF PRESENT ILLNESS: This 74-year-old male patient with past medical history of prostate cancer, recent AAA repair presents emergency department at the recommendation of his watch engineer. Patient was seen at their office yesterday and noted to be pale. Patient was sent for laboratory work which was resulted today, revealing a hemoglobin of 6.1. Patient states he has occasional diarrhea which has been dark, but not for the last several days. He denies taking any anticoagulation but does take a daily baby aspirin. He denies any gastritis or nausea. He has not had any abdominal pain. Patient has noticed some generalized weakness, ADDISON. REVIEW OF SYSTEMS: A review of systems was performed with positives and pertinent negatives listed in the history of present illness. 10 systems were reviewed and are otherwise negative. ALLERGIES: see below MEDICATIONS: see below PMH: see below SOCIAL HISTORY: see below DDx: Anemia, renal failure, GI bleed, electrolyte abnormality, iron deficiency, hemolysis among others PHYSICAL EXAM: Vital signs reviewed. General: somewhat chronically ill-appearing 74-year-old male, in no significant distress. HEENT: No scleral icterus, PERRLA, neck supple. Atraumatic. Cardiovascular: Regular rate and rhythm, no extra sounds. Pulmonary: Clear to auscultation bilaterally, normal work of breathing. Abdomen: Soft, obese,nontender, nondistended, positive bowel sounds. rectal: Normal external rectal mucosa with light brown guaiac-negative stool. Musculoskeletal: Atraumatic, no peripheral edema. Neurologic: Patient awake alert and oriented x 3, speech is clear Skin: Warm, dry, no rash EMERGENCY DEPARTMENT COURSE/MDM: This patient was evaluated and appeared to be in no significant distress. IV access was obtained and laboratory work was drawn. The patient was placed on the auto specialty services manager noted to be in a normal sinus rhythm. Rectal exam was performed with the stools guaiac negative. Patient was typed and crossed for 2 units of PRBCs after hemoglobin was noted to be 6.1. Consent for blood transfusion was signed. The etiology of the anemia is unclear currently. Patient will require hospitalization for further evaluation. Case was discussed with the hospitalist service to evaluate the patient for admission. Patient expressed understanding of the plan and agreed. MONITORING: An order for cardiac monitoring was placed and the patient is noted to be in a Normal sinus rhythm at 84 beats per minute. RADIOLOGY: chest x-ray to my interpretation reveals no evidence of acute cardiopulmonary process. EKG: to my interpretation reveals normal sinus rhythm at 85 bpm. QTc of 430. Normal ST segments. No PVC, no PAC. DISPOSITION: Home I have personally spent greater than 35 minutes of critical care time in the direct management of this patient. This includes bedside care, interpretation of diagnostic studies, and testing, discussion with consultants, patient, and family members, and other required patient management activities. This 35 minutes is in excess of all separately billable procedures. Past Med/Surg History Problem List (Updated 12/23/24 @ 04:59 by Yasmine Loomis MD) History of prostate cancer Acute anemia (Acute) Injury of right thigh Rising PSA level Prostate cancer (Chronic 05/18/15) Biopsy on 05/18/15 AAA (abdominal aortic aneurysm) Medical History COPD (chronic obstructive pulmonary disease) Dyslipidemia HTN (hypertension) Stroke Surgical History History of surgery "Due to crushed coccyx" S/P AAA repair 03/09/23 - "Coils" placed due to stroke; History of cataract surgery Bilateral S/P colonoscopy History of surgery Brain aneurysm repair S/P right knee arthroscopy Family History Mother , 93yo Natural with unknown cause Father , 72yo Myocardial infarction Obesity Diabetes Sister Medical history unknown Sister Medical history unknown Social History Smoking Status: Former smoker Tobacco Type: Cigarettes Cigarettes Per Day: 1-2 PPD x 53yrs; Do You Dip or Chew Tobacco: No (Chewed leaf tobacco x 8-9 yrs - not now); Hx Alcohol Use: No Hx Substance Use: No Preferred Language: Persian Communication Ability: Effective Visual Impairment: No Limitations Hearing Ability: Normal Jewel Bearing Turner Required: No Beliefs That Will Affect Care: None marital status: marital status details: 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 ; Current Living Situation: Spouse 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 How many Children do You have: 0 Feels Safe at Home: Yes Diet: regular caffeine: Yes (at least 6 cups/day) during the past year weight has: decreased > 10 lbs Assistive Devices: Cane Allergies Allergies Allergy/AdvReac Type Severity Reaction Status Date / Time prednisone Allergy Intermediate edema Verified 12/19/24 13:31 Home Meds Home Medications Medication Instructions Recorded Confirmed aspirin 81 mg tablet,delayed 81 mg PO DAILY 07/21/23 12/17/24 release atorvastatin 20 mg tablet (Lipitor) 40 mg PO DAILY 11/03/23 12/17/24 glucosamine-chondroitin 500 mg-400 1 cap PO DAILY 11/03/23 12/17/24 mg capsule lactobacillus combination no.9 4 4,000 mmu cells PO DAILY 11/03/23 12/17/24 billion cell capsule (Adult 50 Plus Probiotic) amlodipine 5 mg tablet 5 mg PO DAILY 03/28/24 12/17/24 cetirizine 10 mg tablet (Allergy 10 mg PO DAILY PRN Allergy Symptoms 03/28/24 12/17/24 Relief (cetirizine)) metoprolol succinate 50 mg 50 mg PO DAILY 12/17/24 12/17/24 tablet,extended release 24 hr Results & Data (ED) Vital Signs Vital Signs - 24 hr 12/17/24 12:43 12/17/24 13:09 12/17/24 13:30 Temperature 36.7 C Temperature Source Temporal Artery Scan Pulse Rate 98 H 98 H 88 Pulse Rate [Apical] Pulse Rate from SpO2 Sensor Pulse Rhythm Regular Respiratory Rate 18 18 13 Respiratory Effort / Characteristics Non-Labored Spontaneous Respiratory Depth Normal Respiratory Pattern Blood Pressure 127/62 131/59 L Blood Pressure [Right Arm] Blood Pressure Mean 83 83 Blood Pressure Mean [Right Arm] Blood Pressure Position Sitting Blood Pressure Position [Right Arm] Pulse Oximetry 97 97 Oxygen Delivery Method Room Air Room Air Sepsis Recent Fever Within 48 Hours No Sepsis New/Unexplained Change in Mental Status N/A Sepsis Action Taken by Nursing No Action Required 12/17/24 13:39 12/17/24 14:00 12/17/24 14:15 Temperature Temperature Source Pulse Rate 97 H 85 83 Pulse Rate [Apical] Pulse Rate from SpO2 Sensor Pulse Rhythm Respiratory Rate 15 8 L Respiratory Effort / Characteristics Respiratory Depth Respiratory Pattern Blood Pressure 114/56 L Blood Pressure [Right Arm] Blood Pressure Mean 75 Blood Pressure Mean [Right Arm] Blood Pressure Position Blood Pressure Position [Right Arm] Pulse Oximetry Oxygen Delivery Method Sepsis Recent Fever Within 48 Hours Sepsis New/Unexplained Change in Mental Status Sepsis Action Taken by Nursing 12/17/24 14:16 12/17/24 14:30 12/17/24 15:03 Temperature Temperature Source Pulse Rate 86 75 Pulse Rate [Apical] 79 Pulse Rate from SpO2 Sensor 74 Pulse Rhythm Respiratory Rate 20 15 7 L Respiratory Effort / Characteristics Non-Labored Spontaneous Respiratory Depth Normal Respiratory Pattern Regular Blood Pressure 114/53 L 106/61 Blood Pressure [Right Arm] 114/56 L Blood Pressure Mean 73 76 Blood Pressure Mean [Right Arm] 75 Blood Pressure Position Blood Pressure Position [Right Arm] Sitting Pulse Oximetry 99 96 Oxygen Delivery Method Room Air Sepsis Recent Fever Within 48 Hours Sepsis New/Unexplained Change in Mental Status Sepsis Action Taken by Custodial Medications Current Medication List: was personally reviewed by me Laboratory Data Attestation: I reviewed the patient's lab results. 12/21/24 06:19 12/21/24 06:19 Lab Results 12/17/24 12/17/24 12/17/24 Range/Units 13:03 13:59 14:46 WBC 4.66 L (4.8-10.8) K/ul RBC 1.67 L (4.70-6.10) M/uL Hgb 6.1 L* (14.0-18.0) g/dl Hct 19.2 L* (42.0-52.0) % MCV 115.0 H (80.0-100.0) fL MCH 36.5 H (25.0-34.0) pg MCHC 31.8 L (32.0-36.0) g/dL RDW Std Deviation 62.6 H (36.4-46.3) fL RDW Coeff of Amina 14.9 H (11.5-14.5) % Plt Count 332 (130-400) K/uL MPV 9.2 L (9.4-12.4) fL Immature Gran % (Auto) 0.2 % Neut % (Auto) 49.1 % Lymph % (Auto) 24.5 % Kimball % (Auto) 14.6 % Eos % (Auto) 10.5 % Baso % (Auto) 1.1 % Reticulocyte % (Auto) 1.76 (0.50-2.00) % Neut # (Auto) 2.29 (1.40-6.50) K/uL Lymph # (Auto) 1.14 L (1.20-3.40) K/uL Kimball # (Auto) 0.68 H (0.11-0.59) K/uL Eos # (Auto) 0.49 (0.00-0.50) K/uL Baso # (Auto) 0.05 (0.00-0.20) K/uL Reticulocyte # 0.030 (0.020-0.100) 10^6/uL Immature Gran # (Auto) 0.01 (0.01-0.20) K/uL Polychromasia 1+ Macrocytosis Present Tear Drop Cells 1+ Ovalocytes 1+ Peripher Smr Path Cons Immature Retic Fraction 14.4 (2.3-15.9) % Retic Hgb Content 33.6 (28.2-36.6) pg Sodium 137 (136-145) mmol/L Potassium 3.7 (3.5-5.1) mmol/L Chloride 107 (98-107) mmol/L Carbon Dioxide 24 (21-32) mmol/L Anion Gap 6 (3-11) BUN 19 (6-23) mg/dl Creatinine 1.22 (0.6-1.4) mg/dl Est Cr Clr Drug Dosing 70.3 ml/min eGFR 62.21 BUN/Creatinine Ratio 15.6 (10-20) Glucose 173 H (70-99(Fasting)) mg/dl Calcium 8.9 (8.6-10.3) mg/dl Magnesium 1.9 (1.7-2.4) mg/dl Total Bilirubin 0.9 (0.2-1.0) mg/dl AST 17 (13-39) U/L ALT 25 (7-52) U/L Alkaline Phosphatase 65 (34-104) U/L Troponin I High Sens 3.8 (0-20) pg/ml Total Protein 6.2 (6.0-8.3) gm/dl Albumin 4.2 (3.4-5.0) gm/dl Globulin 2.0 L (2.5-4.0) gm/dl Albumin/Globulin Ratio 2.1 H (0.9-2) TSH 1.689 (0.300-4.500) uIu/ml Blood Type A Positive Blood Type Recheck A Positive Antibody Screen NEGATIVE Crossmatch See Detail Administered Medications Discontinued Medications Atorvastatin Calcium (Atorvastatin 40 Mg Tab) 40 mg PO QPM SUKI Stop: 01/16/25 20:59 Last Admin: 12/20/24 20:21 Dose: 40 mg Documented By: Admin: 12/19/24 21:15 Dose: 40 mg Documented By: Admin: 12/18/24 20:19 Dose: 40 mg Documented By: Admin: 12/17/24 21:10 Dose: 40 mg Documented By: RADHA Fentanyl Citrate (Fentanyl Citrate Pf 100 Mcg/2 Ml Vial) Confirm Administered Dose 100 mcg .ROUTE .STK-MED ONE Stop: 12/19/24 11:07 Last Admin: 12/19/24 15:59 Dose: Not Given Documented By: ANDREY Pantoprazole Sodium (Protonix) 40 mg in 10 mls @ 5 mls/min IV BID SUKI Stop: 01/16/25 20:59 Last Admin: 12/21/24 08:04 Dose: 5 mls/min Documented By: Admin: 12/20/24 20:21 Dose: 5 mls/min Documented By: Admin: 12/20/24 08:37 Dose: 5 mls/min Documented By: AMBER Co-signed By: ARIEL Admin: 12/19/24 21:16 Dose: 5 mls/min Documented By: Admin: 12/19/24 08:18 Dose: 5 mls/min Documented By: KEELEY Co-signed By: ARIEL Admin: 12/18/24 20:19 Dose: 5 mls/min Documented By: Admin: 12/18/24 08:20 Dose: 5 mls/min Documented By: Admin: 12/17/24 21:10 Dose: 5 mls/min Documented By: RADHA Sodium Chloride (Nss) 1,000 mls @ 125 mls/hr IV .Q8H SUKI Stop: 12/18/24 15:29 Last Infusion: 12/18/24 15:40 Dose: Infused Documented By: Admin: 12/18/24 08:58 Dose: 125 mls/hr Documented By: Infusion: 12/18/24 08:58 Dose: Infused Documented By: Admin: 12/18/24 01:23 Dose: 125 mls/hr Documented By: Infusion: 12/18/24 00:17 Dose: Infused Documented By: Admin: 12/17/24 16:17 Dose: 125 mls/hr Documented By: NEFTALY Ioversol (Optiray 320 125ml) 115 ml IV ONCE ONE Stop: 12/17/24 15:38 Last Admin: 12/17/24 15:37 Dose: 115 ml Documented By: KATHERINE Lactobacillus Acidophilus (Advanced Probiotic 625 Mg Capsule) 1,250 mg PO QDB SKUI Stop: 01/17/25 07:29 Last Admin: 12/21/24 08:00 Dose: 1,250 mg Documented By: Admin: 12/20/24 08:36 Dose: 1,250 mg Documented By: AMBER Co-signed By: ARIEL Admin: 12/19/24 07:07 Dose: Not Given Documented By: Admin: 12/18/24 08:19 Dose: 1,250 mg Documented By: JULIOCESAR Lidocaine HCl (Lidocaine 2% 2 Ml Vial/Amp(20mg/Ml)) Confirm Administered Dose 4 ml INFIL .STK-MED ONE Stop: 12/19/24 13:29 Last Admin: 12/19/24 15:59 Dose: Not Given Documented By: ANDREY Metoprolol Succinate (Metoprolol Succ 50mg Ext Rel Tab) 50 mg PO DAILY [facility] Stop: 01/17/25 08:59 Last Admin: 12/21/24 08:00 Dose: 50 mg Documented By: Admin: 12/20/24 10:24 Dose: 50 mg Documented By: AMBER Co-signed By: ARIEL Admin: 12/19/24 07:07 Dose: Not Given Documented By: Admin: 12/18/24 08:20 Dose: 50 mg Documented By: JULIOCESAR Polyethylene Glycol/Electrolytes (Lavage Solution 4000ml) 8 dose PO 18,06 [facility] Stop: 12/19/24 06:01 Last Admin: 12/19/24 05:52 Dose: 8 dose Documented By: Admin: 12/18/24 18:23 Dose: 8 dose Documented By: JULIOCESAR Propofol (Propofol Iv Emulsion 10 Mg/Ml 20 Ml Vial) Confirm Administered Dose 200 mg IV .STK-MED ONE Stop: 12/19/24 13:29 Last Admin: 12/19/24 15:59 Dose: Not Given Documented By: ANDREY Propofol (Propofol Iv Emulsion 10 Mg/Ml 20 Ml Vial) Confirm Administered Dose 200 mg IV .STK-MED ONE Stop: 12/19/24 13:31 Last Admin: 12/19/24 16:01 Dose: Not Given Documented By: ANDREY Propofol (Propofol Iv Emulsion 10 Mg/Ml 20 Ml Vial) Confirm Administered Dose 200 mg IV .STK-MED ONE Stop: 12/19/24 15:02 Last Admin: 12/19/24 16:01 Dose: Not Given Documented By: ANDREY Imaging Data Radiologist's Impression: Chest X-Ray 12/17/24 13:05 XR chest 1V portable CLINICAL HISTORY: weakness COMPARISON STUDY: PET/CT June 29, 2023. FINDINGS: There is no pneumothorax or pleural effusion. There is no consolidation or evidence for pulmonary edema. There is moderate cardiomegaly. Lung volumes are normal. IMPRESSION: No acute cardiopulmonary findings. Cardiomegaly. ACT 112: Negative or not required by law. Electronically signed by: Micah Prabhakar M.D. 12/17/2024 1:53 PM Abdomen/Pelvis CTA 12/17/24 14:57 EXAM: CT angio abd pelvis wo/w con CLINICAL HISTORY: Acute anemia hx of AAA TECHNIQUE: CTA of the abdomen and pelvis was performed with and without the administration of IV contrast (115 ml Optiray 320). Coronal and sagittal reconstructive images were also obtained. One of these 3D techniques was utilized: Maximum Intensity Pixel (MIP), 3D Reconstructed Images, Volume Rendered Images, Surface Shaded Rendering. Axial non-contrast sections of the abdomen and pelvis were also obtained. One of the following dose-reduction techniques was utilized for this exam. Automated exposure control, adjustment of the mA and/or kV according to patient size, and use of iterative reconstruction. (CTDI: 28.14 mGy, DLP: 4163.65 mGy*cm) COMPARISON: None. FINDINGS: Aorta: Short 38 mm segment of mild saccular dilatation of infrarenal aorta about 34 diameters. inferior to it, another smaller posterior saccular dilatation of 35 mm in length, with intramural hematoma, yet, irregular calcific wilson, with surrounding minimal stranding. Moderate atheromatous affection of abdominal aorta, with significant ostial stenosis of celiac and SMAs. Mild dilatation of left GALILEO (18 mm) Renal Arteries: Renal arteries are normal in size and opacification. No evidence of stenosis or occlusion. Symmetric perfusion of both kidneys. Mesenteric Arteries: The superior mesenteric artery (SMA) and inferior mesenteric artery (DEMAR) are normal in caliber and opacification. Significant stenosis at its orgiin Celiac Artery: The Celiac artery is normal in caliber and opacification. Significant stenosis at its orgiin Iliac Arteries: Common, internal, and external iliac arteries are normal in caliber and opacification. No evidence of stenosis, aneurysm, or occlusion. Venous Structures: Inferior vena cava (IVC) and major venous structures are normal in caliber and opacification. No evidence of thrombus or obstruction. Liver: Normal size and morphology. Homogeneous enhancement post-contrast. No focal hepatic lesions. Gallbladder and Biliary System: Normal appearance of the gallbladder and biliary ducts. No stones or dilatation. Pancreas: Normal size and contour. Homogeneous enhancement post-contrast. No masses or cystic lesions. Spleen: Normal size and appearance. Homogeneous enhancement post-contrast. Adrenal Glands: Normal size and morphology bilaterally. No adrenal masses. Kidneys and Ureters: Normal size, shape, and position of both kidneys. Homogeneous enhancement post-contrast. No renal stones, or hydronephrosis. Small cortical cysts. Ureters are unremarkable. Bladder: Normal in size and wall thickness. No intraluminal masses. Normal enhancement post-contrast. Bowel: Normal appearance of the visualized bowel loops. No evidence of obstruction, wall thickening, or abnormal dilatation. Lymph Nodes: No pathologically enlarged lymph nodes in the abdomen or pelvis. Peritoneum: No free fluid or free air in the abdomen. Bones: Moderate Spinal spondylotic changes with osteophytes. Soft Tissues: Normal appearance of the visualized soft tissues. IMPRESSION: 1. A short segment of mild saccular dilatation of the infrarenal aorta about 34 diameters. 2. Inferior to it, another smaller posterior saccular dilatation of 35 mm in length, with intramural hematoma, yet, irregular calcific wilson, with surrounding minimal stranding, for correlation with prior films if available. 3. Moderate diffuse atheromatous affection of abdominal aorta, with significant ostial stenosis of celiac and SMAs. 4. Mild dilatation of left GALILEO. (18 mm) Electronically signed by Chepe Olmos 12-17-2024 5:32 PM Discharge Plan Visit Data Chief Complaint: Referred by Doctor Stated Complaint: BLOOD TRANSFUSIONS ED Provider: Yasmine Loomis Discharge Problem: Acute anemia Patient Disposition: Admitted As Inpatient Discharge Instructions Interventions: ED Discharge Assessment Last Done: 12/17/24 16:19
[2024-12-17] MEDS: PANTOprazole 40 MG/10 ML SYR IV SCH (21:10)
[2024-12-17] MEDS: ATORVASTATIN 40 MG TAB PO SCH (21:10)
[2024-12-17 21:40] LABS: Hemoglobin 6.8 g/dl (14.0-18.0)
[2024-12-17 22:40] LABS: Appearance Urine Clear (Clear); Bilirubin Urine Negative (Negative); Blood Urine Negative (Negative); Color Urine Yellow; Glucose Urine UA Negative (Negative); Ketones Urine Negative (Negative); Leukocyte Esterase Urine Negative (Negative); Nitrite Urine Negative (Negative); Protein Urine Negative (Negative); Specific Gravity Urine 1.034 (1.000-1.030); Urobilinogen Urine Negative (Negative); pH Urine 5.5 (4.5-7.5)
[2024-12-18 06:54] LABS: Hematocrit (blood only) 23.9 % (42.0-52.0); Mean Corpuscular Hemoglobin 34.5 pg (25.0-34.0); Mean Corpuscular Hgb Conc 33.5 g/dL (32.0-36.0); Mean Platelet Volume 9.1 fL (9.4-12.4); Platelet Count 296 K/uL (130-400); RDW Coefficient of Variation 22.4 % (11.5-14.5); RDW Standard Deviation 81.7 fL (36.4-46.3); Red Blood Count 2.32 M/uL (4.70-6.10); White Blood Count 4.64 K/ul (4.8-10.8)
[2024-12-18 07:15] LABS: BUN Creatinine Ratio 13.9 (10-20); Calcium 8.1 mg/dl (8.6-10.3); Creatinine Clr Calc Pharmacy 84.9 ml/min; Magnesium 1.8 mg/dl (1.7-2.4); Phosphorus 3.1 mg/dl (2.5-4.9); Potassium 4.3 mmol/L (3.5-5.1)
[2024-12-18] MEDS: ADVANCED PROBIOTIC 625 MG CAPSULE PO SCH (08:19)
[2024-12-18] MEDS: METOPROLOL SUCC 50MG EXT REL TAB PO SCH (08:20)
--- NOTE | 2024-12-18 10:33 | Gastrointestinal Consultation ---
Date of Consultation December 18, 2024 Assessment & Plan (1) Acute anemia: Pleasant man with anemia and intermittent diarrhea. I do agree he needs colonoscopy and will go ahead and plan EGD at the same time for his anemia, although it isn't iron deficient. I would consider hematology consultation for his anemia as well. He agrees to getting the procedure while as an inpatient rather than fighting to schedule procedure as outpatient. Procedure and risks discussed. He agrees. History of Present Illness Reason for Consultation: anemia, diarrhea Attending Physician: Ashley Rodas MD History of Present Illness 74 year old man admitted to the hospital with a hemoglobin of 6. He admits he has been feeling weak over the past few months. He has never seen any blood in his stool. He tells me he has had "flat out diarrhea" since he had a AAA repair a couple of years ago. On close questioning though, he has diarrhea of about 5- 6 loose stools over a two hour period that happens only every ten days or so. In between spells he has normal stools or no stools at all. He says he has controlled it with diet. He denies abdominal pain, heartburn or indigestion. He has not lost weight with this. His last colonoscopy was at age 52 and he was old he wouldn't need another one until he was 70. He was recently scheduled for a colonoscopy with Dr. Velazquez but had to cancel due to the fact that he lost his ride. Hemoglobin was 6 on admission with macrocytic indices, normal iron, B12 and folate levels. Allergies Allergy/AdvReac Type Severity Reaction Status Date / Time prednisone Allergy Intermediate edema Verified 05/06/24 08:12 Home Medications Medication Instructions Recorded Confirmed Type aspirin 81 mg tablet,delayed 81 mg PO DAILY 07/21/23 12/17/24 History release atorvastatin 20 mg tablet (Lipitor) 40 mg PO DAILY 11/03/23 12/17/24 History glucosamine-chondroitin 500 mg-400 1 cap PO DAILY 11/03/23 12/17/24 History mg capsule ibuprofen 200 mg capsule 200 mg PO Q6H PRN Pain 11/03/23 12/17/24 History lactobacillus combination no.9 4 4,000 mmu cells PO DAILY 11/03/23 12/17/24 History billion cell capsule (Adult 50 Plus Probiotic) amlodipine 5 mg tablet 5 mg PO DAILY 03/28/24 12/17/24 History cetirizine 10 mg tablet (Allergy 10 mg PO DAILY PRN Allergy Symptoms 03/28/24 12/17/24 History Relief (cetirizine)) metoprolol succinate 50 mg 50 mg PO DAILY 12/17/24 12/17/24 History tablet,extended release 24 hr Patient History Medical History COPD (chronic obstructive pulmonary disease) Dyslipidemia HTN (hypertension) Stroke Surgical History History of surgery "Due to crushed coccyx" S/P AAA repair 03/09/23 - "Coils" placed due to stroke; History of cataract surgery Bilateral S/P colonoscopy History of surgery Brain aneurysm repair S/P right knee arthroscopy Family History Mother , 93yo Natural with unknown cause Father , 72yo Myocardial infarction Obesity Diabetes Sister Medical history unknown Sister Medical history unknown Social History Smoking Status: Former smoker Tobacco Type: Cigarettes Cigarettes Per Day: 1-2 PPD x 53yrs; Do You Dip or Chew Tobacco: No (Chewed leaf tobacco x 8-9 yrs - not now); Hx Alcohol Use: No Hx Substance Use: No Preferred Language: [place] Communication Ability: Effective Visual Impairment: No Limitations Hearing Ability: Normal Monologist Required: No Beliefs That Will Affect Care: None marital status: marital status details: 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 ; Current Living Situation: Spouse 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 How many Children do You have: 0 Feels Safe at Home: Yes Diet: regular caffeine: Yes (at least 6 cups/day) during the past year weight has: decreased > 10 lbs Assistive Devices: Denture - Upper and Glasses Review of Systems Review of Systems: All systems reviewed & are unremarkable except as noted in HPI & below Physical Exam Physical Exam: Pleasant man in no distress Constitutional: WD/WN, vitals as above Neck: trachea midline, no thyromegaly Respiratory: normal respiratory effort, lungs clear to auscultation Cardiovascular: RRR, no murmur, no edema Gastrointestinal (Abdomen): normal bowel sounds, soft, nontender, no hepatosplenomegaly Results & Data Vital Signs (Past 12 Hours) Vital Signs Temp Pulse Pulse Pulse Resp BP BP 12/18/24 08:03 36.4 C L 77 16 124/72 12/18/24 07:30 79 12/18/24 04:37 36.7 C 80 16 149/79 H 12/18/24 01:25 36.7 C 82 18 121/75 12/18/24 01:11 36.6 C 80 18 121/72 12/18/24 00:11 36.5 C 81 16 119/71 12/17/24 23:11 36.6 C 85 18 129/75 12/17/24 22:41 36.7 C 82 17 126/71 Pulse Ox O2 Del Method 12/18/24 08:03 98 Room Air 12/18/24 07:30 12/18/24 04:37 96 Room Air 12/18/24 01:25 96 12/18/24 01:11 94 12/18/24 00:11 95 12/17/24 23:11 94 12/17/24 22:41 95 Laboratory Results 12/18/24 12/17/24 12/17/24 Range/Units 06:03 22:15 21:00 WBC 4.64 L (4.8-10.8) K/ul RBC 2.32 L (4.70-6.10) M/uL Hgb 8.0 L 6.8 L* (14.0-18.0) g/dl Hct 23.9 L 21.0 L (42.0-52.0) % MCV 103.0 H D (80.0-100.0) fL MCH 34.5 H (25.0-34.0) pg MCHC 33.5 (32.0-36.0) g/dL RDW Std Deviation 81.7 H (36.4-46.3) fL RDW Coeff of Amina 22.4 H (11.5-14.5) % Plt Count 296 (130-400) K/uL MPV 9.1 L (9.4-12.4) fL Immature Gran % (Auto) % Neut % (Auto) % Lymph % (Auto) % Loving % (Auto) % Eos % (Auto) % Baso % (Auto) % Reticulocyte % (Auto) (0.50-2.00) % Neut # (Auto) (1.40-6.50) K/uL Lymph # (Auto) (1.20-3.40) K/uL Loving # (Auto) (0.11-0.59) K/uL Eos # (Auto) (0.00-0.50) K/uL Baso # (Auto) (0.00-0.20) K/uL Reticulocyte # (0.020-0.100) 10^6/uL Immature Gran # (Auto) (0.01-0.20) K/uL Polychromasia Macrocytosis Tear Drop Cells Ovalocytes Peripher Smr Path Cons Immature Retic Fraction (2.3-15.9) % Retic Hgb Content (28.2-36.6) pg Haptoglobin PT (9.0-12.0) Seconds INR (0.9-1.1) Sodium 139 (136-145) mmol/L Potassium 4.3 (3.5-5.1) mmol/L Chloride 111 H (98-107) mmol/L Carbon Dioxide 24 (21-32) mmol/L Anion Gap 4 (3-11) BUN 14 (6-23) mg/dl Creatinine 1.01 (0.6-1.4) mg/dl Est Cr Clr Drug Dosing 84.9 ml/min eGFR 78.04 BUN/Creatinine Ratio 13.9 (10-20) Glucose 90 (70-99(Fasting)) mg/dl Calcium 8.1 L (8.6-10.3) mg/dl Phosphorus 3.1 (2.5-4.9) mg/dl Magnesium 1.8 (1.7-2.4) mg/dl Iron (35-175) mcg/dl TIBC (250-450) mcg/dl Transferrin (200-360) mg/dl Transferrin % Sat (20-50) % Ferritin (8-388) ng/ml Total Bilirubin (0.2-1.0) mg/dl AST (13-39) U/L ALT (7-52) U/L Alkaline Phosphatase (34-104) U/L Lactate Dehydrogenase (86-244) U/L Troponin I High Sens (0-20) pg/ml Total Protein (6.0-8.3) gm/dl Albumin (3.4-5.0) gm/dl Globulin (2.5-4.0) gm/dl Albumin/Globulin Ratio (0.9-2) Vitamin B12 (180-914) pg/ml Folate (>5.38) ng/ml TSH (0.300-4.500) uIu/ml Urine Color Yellow Urine Appearance Clear (Clear) Urine pH 5.5 (4.5-7.5) Ur Specific [place] 1.034 H (1.000-1.030) Urine Protein Negative (Negative) Urine Glucose (UA) Negative (Negative) Urine Ketones Negative (Negative) Urine Blood Negative (Negative) Urine Nitrite Negative (Negative) Urine Bilirubin Negative (Negative) Urine Urobilinogen Negative (Negative) Ur Leukocyte Esterase Negative (Negative) Blood Type Blood Type Recheck Antibody Screen Crossmatch 12/17/24 12/17/24 12/17/24 Range/Units 16:19 14:46 13:59 WBC (4.8-10.8) K/ul RBC (4.70-6.10) M/uL Hgb (14.0-18.0) g/dl Hct (42.0-52.0) % MCV (80.0-100.0) fL MCH (25.0-34.0) pg MCHC (32.0-36.0) g/dL RDW Std Deviation (36.4-46.3) fL RDW Coeff of Amina (11.5-14.5) % Plt Count (130-400) K/uL MPV (9.4-12.4) fL Immature Gran % (Auto) % Neut % (Auto) % Lymph % (Auto) % Loving % (Auto) % Eos % (Auto) % Baso % (Auto) % Reticulocyte % (Auto) (0.50-2.00) % Neut # (Auto) (1.40-6.50) K/uL Lymph # (Auto) (1.20-3.40) K/uL Loving # (Auto) (0.11-0.59) K/uL Eos # (Auto) (0.00-0.50) K/uL Baso # (Auto) (0.00-0.20) K/uL Reticulocyte # (0.020-0.100) 10^6/uL Immature Gran # (Auto) (0.01-0.20) K/uL Polychromasia Macrocytosis Tear Drop Cells Ovalocytes Peripher Smr Path Cons Immature Retic Fraction (2.3-15.9) % Retic Hgb Content (28.2-36.6) pg Haptoglobin Pending PT 11.5 (9.0-12.0) Seconds INR 1.1 (0.9-1.1) Sodium (136-145) mmol/L Potassium (3.5-5.1) mmol/L Chloride (98-107) mmol/L Carbon Dioxide (21-32) mmol/L Anion Gap (3-11) BUN (6-23) mg/dl Creatinine (0.6-1.4) mg/dl Est Cr Clr Drug Dosing ml/min eGFR BUN/Creatinine Ratio (10-20) Glucose (70-99(Fasting)) mg/dl Calcium (8.6-10.3) mg/dl Phosphorus (2.5-4.9) mg/dl Magnesium (1.7-2.4) mg/dl Iron 243 H (35-175) mcg/dl TIBC 304 (250-450) mcg/dl Transferrin 217 (200-360) mg/dl Transferrin % Sat 80 H (20-50) % Ferritin 258.9 (8-388) ng/ml Total Bilirubin (0.2-1.0) mg/dl AST (13-39) U/L ALT (7-52) U/L Alkaline Phosphatase (34-104) U/L Lactate Dehydrogenase 122 (86-244) U/L Troponin I High Sens (0-20) pg/ml Total Protein (6.0-8.3) gm/dl Albumin (3.4-5.0) gm/dl Globulin (2.5-4.0) gm/dl Albumin/Globulin Ratio (0.9-2) Vitamin B12 470 (180-914) pg/ml Folate 14.57 (>5.38) ng/ml TSH (0.300-4.500) uIu/ml Urine Color Urine Appearance (Clear) Urine pH (4.5-7.5) Ur Specific [place] (1.000-1.030) Urine Protein (Negative) Urine Glucose (UA) (Negative) Urine Ketones (Negative) Urine Blood (Negative) Urine Nitrite (Negative) Urine Bilirubin (Negative) Urine Urobilinogen (Negative) Ur Leukocyte Esterase (Negative) Blood Type A Positive Blood Type Recheck A Positive Antibody Screen NEGATIVE Crossmatch See Detail 12/17/24 Range/Units 13:03 WBC 4.66 L (4.8-10.8) K/ul RBC 1.67 L (4.70-6.10) M/uL Hgb 6.1 L* (14.0-18.0) g/dl Hct 19.2 L* (42.0-52.0) % MCV 115.0 H (80.0-100.0) fL MCH 36.5 H (25.0-34.0) pg MCHC 31.8 L (32.0-36.0) g/dL RDW Std Deviation 62.6 H (36.4-46.3) fL RDW Coeff of Amina 14.9 H (11.5-14.5) % Plt Count 332 (130-400) K/uL MPV 9.2 L (9.4-12.4) fL Immature Gran % (Auto) 0.2 % Neut % (Auto) 49.1 % Lymph % (Auto) 24.5 % Loving % (Auto) 14.6 % Eos % (Auto) 10.5 % Baso % (Auto) 1.1 % Reticulocyte % (Auto) 1.76 (0.50-2.00) % Neut # (Auto) 2.29 (1.40-6.50) K/uL Lymph # (Auto) 1.14 L (1.20-3.40) K/uL Loving # (Auto) 0.68 H (0.11-0.59) K/uL Eos # (Auto) 0.49 (0.00-0.50) K/uL Baso # (Auto) 0.05 (0.00-0.20) K/uL Reticulocyte # 0.030 (0.020-0.100) 10^6/uL Immature Gran # (Auto) 0.01 (0.01-0.20) K/uL Polychromasia 1+ Macrocytosis Present Tear Drop Cells 1+ Ovalocytes 1+ Peripher Smr Path Cons Pending Immature Retic Fraction 14.4 (2.3-15.9) % Retic Hgb Content 33.6 (28.2-36.6) pg Haptoglobin PT (9.0-12.0) Seconds INR (0.9-1.1) Sodium 137 (136-145) mmol/L Potassium 3.7 (3.5-5.1) mmol/L Chloride 107 (98-107) mmol/L Carbon Dioxide 24 (21-32) mmol/L Anion Gap 6 (3-11) BUN 19 (6-23) mg/dl Creatinine 1.22 (0.6-1.4) mg/dl Est Cr Clr Drug Dosing 70.3 ml/min eGFR 62.21 BUN/Creatinine Ratio 15.6 (10-20) Glucose 173 H (70-99(Fasting)) mg/dl Calcium 8.9 (8.6-10.3) mg/dl Phosphorus (2.5-4.9) mg/dl Magnesium 1.9 (1.7-2.4) mg/dl Iron (35-175) mcg/dl TIBC (250-450) mcg/dl Transferrin (200-360) mg/dl Transferrin % Sat (20-50) % Ferritin (8-388) ng/ml Total Bilirubin 0.9 (0.2-1.0) mg/dl AST 17 (13-39) U/L ALT 25 (7-52) U/L Alkaline Phosphatase 65 (34-104) U/L Lactate Dehydrogenase (86-244) U/L Troponin I High Sens 3.8 (0-20) pg/ml Total Protein 6.2 (6.0-8.3) gm/dl Albumin 4.2 (3.4-5.0) gm/dl Globulin 2.0 L (2.5-4.0) gm/dl Albumin/Globulin Ratio 2.1 H (0.9-2) Vitamin B12 (180-914) pg/ml Folate (>5.38) ng/ml TSH 1.689 (0.300-4.500) uIu/ml Urine Color Urine Appearance (Clear) Urine pH (4.5-7.5) Ur Specific [place] (1.000-1.030) Urine Protein (Negative) Urine Glucose (UA) (Negative) Urine Ketones (Negative) Urine Blood (Negative) Urine Nitrite (Negative) Urine Bilirubin (Negative) Urine Urobilinogen (Negative) Ur Leukocyte Esterase (Negative) Blood Type Blood Type Recheck Antibody Screen Crossmatch Diagnostic Findings Chest X-Ray 12/17/24 13:05 XR chest 1V portable CLINICAL HISTORY: weakness COMPARISON STUDY: PET/CT June 29, 2023. FINDINGS: There is no pneumothorax or pleural effusion. There is no consolidation or evidence for pulmonary edema. There is moderate cardiomegaly. Lung volumes are normal. IMPRESSION: No acute cardiopulmonary findings. Cardiomegaly. ACT 112: Negative or not required by law. Electronically signed by: Micah Prabhakar M.D. 12/17/2024 1:53 PM Abdomen/Pelvis CTA 12/17/24 14:57 EXAM: CT angio abd pelvis wo/w con CLINICAL HISTORY: Acute anemia hx of AAA TECHNIQUE: CTA of the abdomen and pelvis was performed with and without the administration of IV contrast (115 ml Optiray 320). Coronal and sagittal reconstructive images were also obtained. One of these 3D techniques was utilized: Maximum Intensity Pixel (MIP), 3D Reconstructed Images, Volume Rendered Images, Surface Shaded Rendering. Axial non-contrast sections of the abdomen and pelvis were also obtained. One of the following dose-reduction techniques was utilized for this exam. Automated exposure control, adjustment of the mA and/or kV according to patient size, and use of iterative reconstruction. (CTDI: 28.14 mGy, DLP: 4163.65 mGy*cm) COMPARISON: None. FINDINGS: Aorta: Short 38 mm segment of mild saccular dilatation of infrarenal aorta about 34 diameters. inferior to it, another smaller posterior saccular dilatation of 35 mm in length, with intramural hematoma, yet, irregular calcific wilson, with surrounding minimal stranding. Moderate atheromatous affection of abdominal aorta, with significant ostial stenosis of celiac and SMAs. Mild dilatation of left GALILEO (18 mm) Renal Arteries: Renal arteries are normal in size and opacification. No evidence of stenosis or occlusion. Symmetric perfusion of both kidneys. Mesenteric Arteries: The superior mesenteric artery (SMA) and inferior mesenteric artery (DEMAR) are normal in caliber and opacification. Significant stenosis at its orgiin Celiac Artery: The Celiac artery is normal in caliber and opacification. Significant stenosis at its orgiin Iliac Arteries: Common, internal, and external iliac arteries are normal in caliber and opacification. No evidence of stenosis, aneurysm, or occlusion. Venous Structures: Inferior vena cava (IVC) and major venous structures are normal in caliber and opacification. No evidence of thrombus or obstruction. Liver: Normal size and morphology. Homogeneous enhancement post-contrast. No focal hepatic lesions. Gallbladder and Biliary System: Normal appearance of the gallbladder and biliary ducts. No stones or dilatation. Pancreas: Normal size and contour. Homogeneous enhancement post-contrast. No masses or cystic lesions. Spleen: Normal size and appearance. Homogeneous enhancement post-contrast. Adrenal Glands: Normal size and morphology bilaterally. No adrenal masses. Kidneys and Ureters: Normal size, shape, and position of both kidneys. Homogeneous enhancement post-contrast. No renal stones, or hydronephrosis. Small cortical cysts. Ureters are unremarkable. Bladder: Normal in size and wall thickness. No intraluminal masses. Normal enhancement post-contrast. Bowel: Normal appearance of the visualized bowel loops. No evidence of obstruction, wall thickening, or abnormal dilatation. Lymph Nodes: No pathologically enlarged lymph nodes in the abdomen or pelvis. Peritoneum: No free fluid or free air in the abdomen. Bones: Moderate Spinal spondylotic changes with osteophytes. Soft Tissues: Normal appearance of the visualized soft tissues. IMPRESSION: 1. A short segment of mild saccular dilatation of the infrarenal aorta about 34 diameters. 2. Inferior to it, another smaller posterior saccular dilatation of 35 mm in length, with intramural hematoma, yet, irregular calcific wilson, with surrounding minimal stranding, for correlation with prior films if available. 3. Moderate diffuse atheromatous affection of abdominal aorta, with significant ostial stenosis of celiac and SMAs. 4. Mild dilatation of left GALILEO. (18 mm) Electronically signed by Chepe Olmos 12-17-2024 5:32 PM
--- NOTE | 2024-12-18 10:51 | Hospitalist Progress Note ---
Date of Service December 18, 2024 Assessment & Plan (1) Acute anemia: (2) AAA (abdominal aortic aneurysm): (3) History of prostate cancer: Plan Mr. Sheehan is a 74 year old male with past medical history of CAD, AAA s/p repair 02/2023, HTN, HLD, cerebral artery aneurysm s/p embolization, GERD, prediabetes, prior gastric ulcer, BPH, prostate cancer s/p androgen deprivation therapy/radiation therapy on surveillance, and sacroiliitis s/p MODESTO, admitted for evaluation of symptomatic anemia. Acute on chronic anemia Intramural hematoma on CT prior Gastric ulcer MCV 115, Hgb 6.1, plts 332 on admission Folate and b12 levels normal iron studies levels normal CT abd/pelvis noting a saccular aneurysm and "...Inferior to it, another smaller posterior saccular dilatation of 35 mm in length, with intramural hematoma..." No abdominal pain, no tenderness, stable hemodynamics FOBT negative PPI BID IV Vascular surgery consulted for CT findings GI consulted, appreciate further recs Hematology consulted, appreciate recs Pt is s/p transfusion of 2U pRBCs on 12/17 with noted improvement of H/H Continue to monitor Hypertension Palpitations Monitor on tele Continue Metoprolol hold amlodipine CAD Cerebral artery aneurysm HLD continue statin hold asa for now Diet: clears DVT ppx SCDS Dispo: PT/OT ordered for further recs Admission and Anticipated Discharge Date Admission Date: December 17, 2024 Subjective pt was seen in the AM Sitting up in bed States he still feels fatigued Would like to figure out the cause of this symptoms and have definite answers Review of Systems Review of Systems: All systems reviewed & are unremarkable except as noted in Subjective Physical Exam Physical Exam: General: Alert, oriented. No acute distress HEENT: NC/AT CV: RRR Resp: Breath sounds clear bilaterally, no increased effort of breathing Abdomen: Soft, nontender Extremities:edema in lower extremities bilaterally. Results & Data Results & Data Vital Signs (Past 12 Hours) Vital Signs Temp Pulse Pulse Pulse Resp BP BP 12/18/24 08:03 36.4 C L 77 16 124/72 12/18/24 07:30 79 12/18/24 04:37 36.7 C 80 16 149/79 H 12/18/24 01:25 36.7 C 82 18 121/75 12/18/24 01:11 36.6 C 80 18 121/72 12/18/24 00:11 36.5 C 81 16 119/71 12/17/24 23:11 36.6 C 85 18 129/75 Pulse Ox O2 Del Method 12/18/24 08:03 98 Room Air 12/18/24 07:30 12/18/24 04:37 96 Room Air 12/18/24 01:25 96 12/18/24 01:11 94 12/18/24 00:11 95 12/17/24 23:11 94 Diagnostic Findings Chest X-Ray 12/17/24 13:05 XR chest 1V portable CLINICAL HISTORY: weakness COMPARISON STUDY: PET/CT June 29, 2023. FINDINGS: There is no pneumothorax or pleural effusion. There is no consolidation or evidence for pulmonary edema. There is moderate cardiomegaly. Lung volumes are normal. IMPRESSION: No acute cardiopulmonary findings. Cardiomegaly. ACT 112: Negative or not required by law. Electronically signed by: Micah Prabhakar M.D. 12/17/2024 1:53 PM Abdomen/Pelvis CTA 12/17/24 14:57 EXAM: CT angio abd pelvis wo/w con CLINICAL HISTORY: Acute anemia hx of AAA TECHNIQUE: CTA of the abdomen and pelvis was performed with and without the administration of IV contrast (115 ml Optiray 320). Coronal and sagittal reconstructive images were also obtained. One of these 3D techniques was utilized: Maximum Intensity Pixel (MIP), 3D Reconstructed Images, Volume Rendered Images, Surface Shaded Rendering. Axial non-contrast sections of the abdomen and pelvis were also obtained. One of the following dose-reduction techniques was utilized for this exam. Automated exposure control, adjustment of the mA and/or kV according to patient size, and use of iterative reconstruction. (CTDI: 28.14 mGy, DLP: 4163.65 mGy*cm) COMPARISON: None. FINDINGS: Aorta: Short 38 mm segment of mild saccular dilatation of infrarenal aorta about 34 diameters. inferior to it, another smaller posterior saccular dilatation of 35 mm in length, with intramural hematoma, yet, irregular calcific wilson, with surrounding minimal stranding. Moderate atheromatous affection of abdominal aorta, with significant ostial stenosis of celiac and SMAs. Mild dilatation of left GALILEO (18 mm) Renal Arteries: Renal arteries are normal in size and opacification. No evidence of stenosis or occlusion. Symmetric perfusion of both kidneys. Mesenteric Arteries: The superior mesenteric artery (SMA) and inferior mesenteric artery (DEMAR) are normal in caliber and opacification. Significant stenosis at its orgiin Celiac Artery: The Celiac artery is normal in caliber and opacification. Significant stenosis at its orgiin Iliac Arteries: Common, internal, and external iliac arteries are normal in caliber and opacification. No evidence of stenosis, aneurysm, or occlusion. Venous Structures: Inferior vena cava (IVC) and major venous structures are normal in caliber and opacification. No evidence of thrombus or obstruction. Liver: Normal size and morphology. Homogeneous enhancement post-contrast. No focal hepatic lesions. Gallbladder and Biliary System: Normal appearance of the gallbladder and biliary ducts. No stones or dilatation. Pancreas: Normal size and contour. Homogeneous enhancement post-contrast. No masses or cystic lesions. Spleen: Normal size and appearance. Homogeneous enhancement post-contrast. Adrenal Glands: Normal size and morphology bilaterally. No adrenal masses. Kidneys and Ureters: Normal size, shape, and position of both kidneys. Homogeneous enhancement post-contrast. No renal stones, or hydronephrosis. Small cortical cysts. Ureters are unremarkable. Bladder: Normal in size and wall thickness. No intraluminal masses. Normal enhancement post-contrast. Bowel: Normal appearance of the visualized bowel loops. No evidence of obstruction, wall thickening, or abnormal dilatation. Lymph Nodes: No pathologically enlarged lymph nodes in the abdomen or pelvis. Peritoneum: No free fluid or free air in the abdomen. Bones: Moderate Spinal spondylotic changes with osteophytes. Soft Tissues: Normal appearance of the visualized soft tissues. IMPRESSION: 1. A short segment of mild saccular dilatation of the infrarenal aorta about 34 diameters. 2. Inferior to it, another smaller posterior saccular dilatation of 35 mm in length, with intramural hematoma, yet, irregular calcific wilson, with surrounding minimal stranding, for correlation with prior films if available. 3. Moderate diffuse atheromatous affection of abdominal aorta, with significant ostial stenosis of celiac and SMAs. 4. Mild dilatation of left GALILEO. (18 mm) Electronically signed by Chepe Olmos 12-17-2024 5:32 PM
--- NOTE | 2024-12-18 10:59 | Oncology Consultation ---
Date of Consultation December 18, 2024 Assessment & Plan (1) Acute anemia: (2) History of prostate cancer: Plan Patient has macrocytic anemia, nutritional labs within normal limits. This is concerning for possible hematologic malignancy such as multiple myeloma/MDS. Albumin/globulin ratio slightly elevated concerning for plasma cell dyscrasia. Recommend SPEP with FLORA, quant immunoglobulins, serum free light chains. Also recommend bone marrow biopsy to rule out hematologic malignancy. Patient agreed with plan. Thank you for this consult. Please feel free to call if you have any further questions. History of Present Illness Reason for Consultation: Severe anemia Attending Physician: Ashley Rodas MD History of Present Illness 74-year-old gentleman with history of prostate cancer status post radiation therapy completed on 05/06/2024 was admitted with severe anemia. Hemoglobin noted to be 6.1 on outpatient labs obtained by cardiology. Nutritional labs including B12, folate, iron studies within normal limits. Allergies Allergy/AdvReac Type Severity Reaction Status Date / Time prednisone Allergy Intermediate edema Verified 05/06/24 08:12 Home Medications Medication Instructions Recorded Confirmed Type aspirin 81 mg tablet,delayed 81 mg PO DAILY 07/21/23 12/17/24 History release atorvastatin 20 mg tablet (Lipitor) 40 mg PO DAILY 11/03/23 12/17/24 History glucosamine-chondroitin 500 mg-400 1 cap PO DAILY 11/03/23 12/17/24 History mg capsule ibuprofen 200 mg capsule 200 mg PO Q6H PRN Pain 11/03/23 12/17/24 History lactobacillus combination no.9 4 4,000 mmu cells PO DAILY 11/03/23 12/17/24 History billion cell capsule (Adult 50 Plus Probiotic) amlodipine 5 mg tablet 5 mg PO DAILY 03/28/24 12/17/24 History cetirizine 10 mg tablet (Allergy 10 mg PO DAILY PRN Allergy Symptoms 03/28/24 12/17/24 History Relief (cetirizine)) metoprolol succinate 50 mg 50 mg PO DAILY 12/17/24 12/17/24 History tablet,extended release 24 hr Patient History Medical History COPD (chronic obstructive pulmonary disease) Dyslipidemia HTN (hypertension) Stroke Surgical History History of surgery "Due to crushed coccyx" S/P AAA repair 03/09/23 - "Coils" placed due to stroke; History of cataract surgery Bilateral S/P colonoscopy History of surgery Brain aneurysm repair S/P right knee arthroscopy Family History Mother , 93yo Natural with unknown cause Father , 72yo Myocardial infarction Obesity Diabetes Sister Medical history unknown Sister Medical history unknown Social History Smoking Status: Former smoker Tobacco Type: Cigarettes Cigarettes Per Day: 1-2 PPD x 53yrs; Do You Dip or Chew Tobacco: No (Chewed leaf tobacco x 8-9 yrs - not now); Hx Alcohol Use: No Hx Substance Use: No Preferred Language: Australian Communication Ability: Effective Visual Impairment: No Limitations Hearing Ability: Normal Ethanol Quality Leader Required: No Beliefs That Will Affect Care: None marital status: 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 ; Current Living Situation: Spouse 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 How many Children do You have: 0 Feels Safe at Home: Yes Diet: regular caffeine: Yes (at least 6 cups/day) during the past year weight has: decreased > 10 lbs Assistive Devices: Denture - Upper and Glasses Results & Data Vital Signs (Past 12 Hours) Vital Signs Temp Pulse Pulse Pulse Resp BP BP 12/18/24 08:03 36.4 C L 77 16 124/72 12/18/24 07:30 79 12/18/24 04:37 36.7 C 80 16 149/79 H 12/18/24 01:25 36.7 C 82 18 121/75 12/18/24 01:11 36.6 C 80 18 121/72 12/18/24 00:11 36.5 C 81 16 119/71 12/17/24 23:11 36.6 C 85 18 129/75 Pulse Ox O2 Del Method 12/18/24 08:03 98 Room Air 12/18/24 07:30 12/18/24 04:37 96 Room Air 12/18/24 01:25 96 12/18/24 01:11 94 12/18/24 00:11 95 12/17/24 23:11 94
[2024-12-18 11:57] LABS: Immunoglobulin A 213.2 mg/dl (70-400); Immunoglobulin G 557.6 mg/dl (635-1741); Immunoglobulin M 87.2 mg/dl (45-281)
[2024-12-18] MEDS: LAVAGE SOLUTION 4000ML PO SCH (18:23)
[2024-12-19 06:32] LABS: Hematocrit (blood only) 26.8 % (42.0-52.0); Hemoglobin 8.8 g/dl (14.0-18.0); Mean Corpuscular Hemoglobin 33.7 pg (25.0-34.0); Mean Corpuscular Hgb Conc 32.8 g/dL (32.0-36.0); Mean Corpuscular Volume 102.7 fL (80.0-100.0); Mean Platelet Volume 8.8 fL (9.4-12.4); Platelet Count 307 K/uL (130-400); RDW Coefficient of Variation 21.8 % (11.5-14.5); RDW Standard Deviation 81.3 fL (36.4-46.3); Red Blood Count 2.61 M/uL (4.70-6.10)
[2024-12-19 06:47] LABS: Albumin Globulin Ratio 2.1 (0.9-2); BUN Creatinine Ratio 11.1 (10-20); Bilirubin,Total 1.9 mg/dl (0.2-1.0); Calcium 8.4 mg/dl (8.6-10.3); Globulin 1.9 gm/dl (2.5-4.0); Magnesium 1.9 mg/dl (1.7-2.4); Phosphorus 2.8 mg/dl (2.5-4.9); Potassium 3.8 mmol/L (3.5-5.1); Total Protein 5.9 gm/dl (6.0-8.3)
[2024-12-19 07:34] LABS: Anisocytosis Present; Basophils % (auto) 1.8 %; Eosinophils # (auto) 0.63 K/uL (0.00-0.50); Eosinophils % (auto) 11.5 %; Immature Granulocytes # (auto) 0.01 K/uL (0.01-0.20); Immature Granulocytes % (auto) 0.2 %; Lymphocytes # (auto) 1.53 K/uL (1.20-3.40); Lymphocytes % (auto) 27.8 %; Monocytes # (auto) 0.76 K/uL (0.11-0.59); Monocytes % (auto) 13.8 %; Neutrophils # (auto) 2.47 K/uL (1.40-6.50); Neutrophils % (auto) 44.9 %; Ovalocytes 1+
--- NOTE | 2024-12-19 09:59 | Consultation ---
Date of Consultation December 19, 2024 Assessment & Plan (1) AAA (abdominal aortic aneurysm): Pt with hx of infrarenal AAA s/p open repair, and small suprarenal AAA. Currently managed/followed by his vascular surgeon. CTA Imaging demonstrates no active bleeding for concern. No indications for vascular surgical intervention. Please call if needed. History of Present Illness Reason for Consultation: AAA Attending Physician: Ashley Rodas MD History of Present Illness 74 yo m with hx of AAA s/p open repair in [facility] by Dr Tyson, HTN, prostate ca, hyperlipidemia, admitted with symptomatic anemia, seen in consultation today for possible IMH of aorta. Pt states he is currently undergoing annual checks with his vascular surgeon, and there has never been a problem with his repair. Admits fatigue/malaise, ADDISON, and chronic intermittent diarrhea. Denies ABRAMS, fever, chest pain, SOB, abd pain, N/V, rest pain, tish dication, other complaints. Denies significant weight loss or changes in eating habits, or post prandial pain. Denies melena or hematochezia. CTA abd/pelvis demonstrates patent graft s/p open repair of AAA, and small suprarenal AAA measuring 3.4cm. Allergies Allergy/AdvReac Type Severity Reaction Status Date / Time prednisone Allergy Intermediate edema Verified 05/06/24 08:12 Home Medications Medication Instructions Recorded Confirmed Type aspirin 81 mg tablet,delayed 81 mg PO DAILY 07/21/23 12/17/24 History release atorvastatin 20 mg tablet (Lipitor) 40 mg PO DAILY 11/03/23 12/17/24 History glucosamine-chondroitin 500 mg-400 1 cap PO DAILY 11/03/23 12/17/24 History mg capsule ibuprofen 200 mg capsule 200 mg PO Q6H PRN Pain 11/03/23 12/17/24 History lactobacillus combination no.9 4 4,000 mmu cells PO DAILY 11/03/23 12/17/24 History billion cell capsule (Adult 50 Plus Probiotic) amlodipine 5 mg tablet 5 mg PO DAILY 03/28/24 12/17/24 History cetirizine 10 mg tablet (Allergy 10 mg PO DAILY PRN Allergy Symptoms 03/28/24 12/17/24 History Relief (cetirizine)) metoprolol succinate 50 mg 50 mg PO DAILY 12/17/24 12/17/24 History tablet,extended release 24 hr Patient History Medical History COPD (chronic obstructive pulmonary disease) Dyslipidemia HTN (hypertension) Stroke Surgical History History of surgery "Due to crushed coccyx" S/P AAA repair 03/09/23 - "Coils" placed due to stroke; History of cataract surgery Bilateral S/P colonoscopy History of surgery Brain aneurysm repair S/P right knee arthroscopy Family History Mother , 93yo Natural with unknown cause Father , 72yo Myocardial infarction Obesity Diabetes Sister Medical history unknown Sister Medical history unknown Social History Smoking Status: Former smoker Tobacco Type: Cigarettes Cigarettes Per Day: 1-2 PPD x 53yrs; Do You Dip or Chew Tobacco: No (Chewed leaf tobacco x 8-9 yrs - not now); Hx Alcohol Use: No Hx Substance Use: No Preferred Language: Sammarinese Communication Ability: Effective Visual Impairment: No Limitations Hearing Ability: Normal Civil Engineer Helper Required: No Beliefs That Will Affect Care: None marital status: 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 ; Current Living Situation: Spouse 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 How many Children do You have: 0 Feels Safe at Home: Yes Diet: regular caffeine: Yes (at least 6 cups/day) during the past year weight has: decreased > 10 lbs Assistive Devices: Denture - Upper and Glasses Review of Systems Review of Systems: All systems reviewed & are unremarkable except as noted in HPI & below Physical Exam Constitutional: WD/WN, vitals as above + morbidly obese, cooperative and comfortable; not in distress ENMT: Ears: no hearing impairment Neck: trachea midline Respiratory: normal respiratory effort, lungs clear to auscultation Auscultation: + diminished lung sounds Cardiovascular: Rate/Rhythm: regular rate and regular rhythm Vessels: femoral pulses present, posterior tibial pulses present and dorsalis pedis pulses present; + abnormal peripheral pulses Extremities: normal capillary refill; no edema Gastrointestinal (Abdomen): Inspection/Auscultation: abdomen normal to inspection and normal bowel sounds Percussion/Palpation: abdomen soft; abdomen nontender Musculoskeletal: no cyanosis or clubbing, extremities motor strength 5/5 Skin: no rashes, warm and dry Neurologic: moves all extremities and awake; no focal motor deficits and not confused Psychiatric: A+Ox3, euthymic affect Results & Data Vital Signs (Past 12 Hours) Vital Signs Temp Pulse Pulse Resp BP BP Pulse Ox 12/19/24 08:19 12/19/24 07:22 36.7 C 84 17 149/83 H 95 12/19/24 06:12 81 12/19/24 03:57 36.6 C 92 H 18 153/78 H 96 12/18/24 23:06 36.5 C 95 H 18 145/73 H 96 O2 Del Method 12/19/24 08:19 Room Air 12/19/24 07:22 Room Air 12/19/24 06:12 12/19/24 03:57 Room Air 12/18/24 23:06 Room Air
--- NOTE | 2024-12-19 10:31 | History & Physical Bridge Note ---
Date of Service December 19, 2024 History & Physical Bridge Note I have examined the patient, reviewed the History & Physical and in the interval since the performance of the History & Physical I have noted the following changes of clinical significance: no changes noted Patient is a 74 yo male with anemia. He has completed a bowel prep and is having clear liquid bowel movements. H/H 8.8/26.8. No overt GI bleeding with prep. No abdominal pain or other GI complaints at present. He reports he has been NPO. Keep NPO & proceed with EGD & colonoscopy today.
--- NOTE | 2024-12-19 14:02 | Anesthesiology Consultation ---
Date of Service December 19, 2024 Assessment & Plan Chart Review Chart Review: Acceptable Risk for Surgery and Patient NOT seen in Pre Admission Testing Consults Requested none ASA ASA3 Proposed Anesthesia Anesthesia Type: MAC Risk / Benefits Reviewed With: PT / POA / Parent / Guardian, Accepts Plan and Informed Consent Obtained History Surgery Operation Date: 12/19/24 16:30 Proposed Procedures p Colonoscopy EGD Dr. Erick Suarez MD Height/Weight Height: 5 ft 10 in Weight: 120.1 kg Allergies Allergy/AdvReac Type Severity Reaction Status Date / Time prednisone Allergy Intermediate edema Verified 12/19/24 13:31 Medications Home Medications Medication Instructions Recorded Confirmed Last Taken aspirin 81 mg tablet,delayed 81 mg PO DAILY 07/21/23 12/17/24 Unknown release atorvastatin 20 mg tablet (Lipitor) 40 mg PO DAILY 11/03/23 12/17/24 Unknown glucosamine-chondroitin 500 mg-400 1 cap PO DAILY 11/03/23 12/17/24 Unknown mg capsule ibuprofen 200 mg capsule 200 mg PO Q6H PRN Pain 11/03/23 12/17/24 Unknown lactobacillus combination no.9 4 4,000 mmu cells PO DAILY 11/03/23 12/17/24 Unknown billion cell capsule (Adult 50 Plus Probiotic) amlodipine 5 mg tablet 5 mg PO DAILY 03/28/24 12/17/24 Unknown cetirizine 10 mg tablet (Allergy 10 mg PO DAILY PRN Allergy Symptoms 03/28/24 12/17/24 Unknown Relief (cetirizine)) metoprolol succinate 50 mg 50 mg PO DAILY 12/17/24 12/17/24 Unknown tablet,extended release 24 hr Active Medications Generic Name Dose Route Start Last Admin Trade Name Freq PRN Reason Stop Dose Admin Atorvastatin Calcium 40 mg 12/17/24 21:00 12/18/24 20:19 Atorvastatin 40 Mg Tab PO 01/16/25 20:59 40 mg QPM SUKI Administration Pantoprazole Sodium 40 mg in 10 mls @ 5 mls/min 12/17/24 21:00 12/19/24 08:18 Protonix IV 01/16/25 20:59 5 mls/min BID SUKI Administration Lactobacillus Acidophilus 1,250 mg 12/18/24 07:30 12/19/24 07:07 Advanced Probiotic 625 Mg Capsule PO 01/17/25 07:29 Not Given QDB SUKI Metoprolol Succinate 50 mg 12/18/24 09:00 12/19/24 07:07 Metoprolol Succ 50mg Ext Rel Tab PO 01/17/25 08:59 Not Given DAILY SUKI NPO Date Last Intake of Fluids: 12/19/24 Time Last Intake of Fluids: 08:00 Last Intake of Fluids Comment: sips of water Date Last Intake of Solids: 12/17/24 Time Last Intake of Solids: 08:00 Past Medical History Medical History COPD (chronic obstructive pulmonary disease) Dyslipidemia HTN (hypertension) Stroke Exercise / Class Metabolic Activity II 4-5 Yardwork/Stairs/Walk up hill Past Family History Family History Mother , 93yo Natural with unknown cause Father , 72yo Myocardial infarction Obesity Diabetes Sister Medical history unknown Sister Medical history unknown Past Surgical History Surgical History History of surgery "Due to crushed coccyx" S/P AAA repair 03/09/23 - "Coils" placed due to stroke; History of cataract surgery Bilateral S/P colonoscopy History of surgery Brain aneurysm repair S/P right knee arthroscopy Past Anesthesia History No Hx of Anesthesia Complications and No Family Hx of Anesthesia Complications History of PONV No Hx of PONV and No Hx of Motion Sickness Social History Smoking Status: Former smoker Smoking cigarettes per day: 1-2 PPD x 53yrs Do You Dip or Chew Tobacco: No (Chewed leaf tobacco x 8-9 yrs - not now) Hx Alcohol Use: No Hx Substance Use: No Review of Systems ROS Unobtainable: All systems reviewed & are unremarkable except as noted in HPI & below Physical Exam Vital Signs Last Vital Signs Temp 36.7 C 12/19/24 13:32 Pulse 94 H 12/19/24 13:32 Resp 16 12/19/24 13:32 BP 173/92 H 12/19/24 13:32 Pulse Ox 97 12/19/24 13:32 O2 Del Method Room Air 12/19/24 13:32 ENMT Mouth: no TMJ abnormality Thyromental Distance: > or= 3.5 Finger Breadths Mallampati Class: III Neck normal visual inspection and trachea midline; neck extension not limited Respiratory normal respiratory effort Auscultation: lungs clear to auscultation bilaterally Cardiovascular Rate/Rhythm: regular rate and regular rhythm Heart Sounds: no murmur Musculoskeletal Spine: normal cervical ROM Extremities: full ROM of extremities Neurologic moves all extremities Psychiatric Orientation: alert and oriented x 3 Testing Laboratory Results 12/19/24 05:56 12/19/24 05:56 PT 11.5 Seconds (9.0-12.0) 12/17/24 16:19 INR 1.1 (0.9-1.1) 12/17/24 16:19 Urine Color Yellow 12/17/24 22:15 Urine Appearance Clear (Clear) 12/17/24 22:15 Urine pH 5.5 (4.5-7.5) 12/17/24 22:15 Ur Specific Paden 1.034 (1.000-1.030) H 12/17/24 22:15 Urine Protein Negative (Negative) 12/17/24 22:15 Urine Glucose (UA) Negative (Negative) 12/17/24 22:15 Urine Ketones Negative (Negative) 12/17/24 22:15 Urine Nitrite Negative (Negative) 12/17/24 22:15 Ur Leukocyte Esterase Negative (Negative) 12/17/24 22:15 Blood Type A Positive 12/17/24 13:59 Antibody Screen NEGATIVE 12/17/24 13:59 Electrocardiogram Date: 12/17/24 Findings: + NSR @
--- NOTE | 2024-12-19 14:05 | Hospitalist Progress Note ---
Date of Service December 19, 2024 Assessment & Plan (1) Acute anemia: (2) AAA (abdominal aortic aneurysm): (3) History of prostate cancer: Plan Mr. Sheehan is a 74 year old male with past medical history of CAD, AAA s/p repair 02/2023, HTN, HLD, cerebral artery aneurysm s/p embolization, GERD, prediabetes, prior gastric ulcer, BPH, prostate cancer s/p androgen deprivation therapy/radiation therapy on surveillance, and sacroiliitis s/p MODESTO, admitted for evaluation of symptomatic anemia. Acute on chronic anemia Intramural hematoma on CT prior Gastric ulcer MCV 115, Hgb 6.1, plts 332 on admission Folate and b12 levels normal iron studies levels normal CT abd/pelvis noting a saccular aneurysm and "...Inferior to it, another smaller posterior saccular dilatation of 35 mm in length, with intramural hematoma..." No abdominal pain, no tenderness, stable hemodynamics FOBT negative PPI BID IV Vascular surgery consulted for CT findings- recommended no further inpt workup GI consulted, appreciate further recs -s/p EGD and colonoscopy on 12/19 with no noted bleed, polyp sampled. Hematology consulted, appreciate recs. Dr Aponte noted/stated the following: "...Patient has macrocytic anemia, nutritional labs within normal limits. This is concerning for possible hematologic malignancy such as multiple myeloma/MDS. Albumin/globulin ratio slightly elevated concerning for plasma cell dyscrasia. Recommend SPEP with FLORA, quant immunoglobulins, serum free light chains. Also recommend bone marrow biopsy to rule out hematologic malignancy.... Pt is s/p transfusion of 2U pRBCs on 12/17 with noted improvement of H/H. 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 No acute distress HEENT: NC/AT CV: RRR Resp: Breath sounds clear bilaterally, no increased effort of breathing Abdomen: Soft, nontender Extremities:edema in lower extremities bilaterally. Results & Data Results & Data Vital Signs (Past 12 Hours) Vital Signs Temp Pulse Pulse Resp BP BP Pulse Ox 12/19/24 13:32 36.7 C 94 H 16 173/92 H 97 12/19/24 10:49 36.7 C 85 17 162/85 H 95 12/19/24 08:19 12/19/24 07:22 36.7 C 84 17 149/83 H 95 12/19/24 06:12 81 12/19/24 03:57 36.6 C 92 H 18 153/78 H 96 O2 Del Method 12/19/24 13:32 Room Air 12/19/24 10:49 Room Air 12/19/24 08:19 Room Air 12/19/24 07:22 Room Air 12/19/24 06:12 12/19/24 03:57 Room Air
--- NOTE | 2024-12-19 14:12 | Communication Note ---
Date of Service: December 19, 2024 Anemia without sharon gastrointestinal bleeding. No iron deficiency. For EGD colonoscopy today to evaluate for potential GI source. Being seen by hematology for potential production problem. Risks and benefits of the procedure including bleeding perforation discussed informed consent obtained
--- NOTE | 2024-12-19 14:27 | CT Scan Report ---
CT guided bone marrow biopsy INDICATION: Macrocytic anemia PROCEDURE: Procedure and risks were explained. Informed consent was obtained. A final timeout was com pleted. The patient was placed prone on the CT exam table. The left gluteal region was prepped and dr aped in sterile fashion. 1% lidocaine was utilized for skin anesthesia. Utilizing CT guidance, an 11-gauge bone biopsy needle was advanced into the left iliac bone. Multiple aspirates and one bone core was obtained and given to the lab. The needle was removed and Band-Aid a pplied. The patient tolerated the procedure well. Vital signs will be monitored postprocedure. IMPRESSION: Bone marrow biopsy as above. Performed, dictated, and signed by Kenny Reeves PA-C; to be co-signed by Dr. Tapan Mehta. Electronically signed by: Tapan Mehta M.D. 12/19/2024 3:55 PM
--- NOTE | 2024-12-19 15:00 | Communication Note ---
Date of Service: December 19, 2024 Anemia potential occult GI bleeding. EGD colonoscopy... No blood in the GI tract no definite source for GI bleeding. Multiple colon polyp with a medium to large polyp in the proximal transverse colon removed piecemeal. Dilated internal hemorrhoids. Anemia potentially a production problem. Patient has had a bone marrow is being followed by hematology. Await polyp results because of the medium to large polyp in the transverse colon likely require repeat colonoscopy in 1 year.
--- NOTE | 2024-12-19 15:03 | GI REPORT ---
[facility] Patient: TRISTAN ANGLIN : 1950 Sex at : Male Age: 74 Years Procedure: Upper GI endoscopy Date: 12/19/2024 Attending Physician: Arturo Suarez MD Referring MD: Ashley Rodas Md Indications: - Suspected upper gastrointestinal bleeding Medications: - Monitored Anesthesia Care Complications: - No immediate complications. Estimated Blood Loss: - Estimated blood loss: None. Procedure: - The egd scope was introduced through the mouth and advanced to the third part of the duodenum. - The upper GI endoscopy was accomplished without difficulty. - The patient tolerated the procedure well. Findings: - The examined esophagus was normal. - The entire examined stomach was normal. - The examined duodenum was normal. Impression: - Normal esophagus. - Normal stomach. - Normal examined duodenum. - No specimens collected. - No source for GI bleeding. Colonoscopy today Recommendation: Procedure Code(s): - 77881, Esophagogastroduodenoscopy, flexible, transoral; diagnostic, including collection of specimen(s) by brushing or washing, when performed (separate procedure) CPT(R) - 2023 copyright [employer]. All Rights Reserved. The CPT codes, CCI edits and ICD codes generated are intended as suggestions and were generated based on input data. These codes are preliminary and upon rotary swaging machine operator review may be revised to meet current compliance and payer requirements. The provider is responsible for the final determination of appropriate codes, and modifiers. Arturo Suarez MD This document has been electronically signed. Note Initiated:12/19/2024 Note Completed:12/19/2024 3:02 PM \\[email or web address]\[email or web address]\Data\Provation\Results\[id number]
--- NOTE | 2024-12-19 15:07 | GI REPORT ---
[facility] Patient: TRISTAN ANGLIN : 1950 Sex at : Male Age: 74 Years Procedure: Colonoscopy Date: 12/19/2024 Attending Physician: Arturo Suarez MD Referring MD: Ashley Rodas Md Indications: - Anemia suspected occult GI bleeding Medications: - Monitored Anesthesia Care Complications: - No immediate complications. Estimated Blood Loss: - Estimated blood loss was minimal. Procedure: - The adult colonoscope was introduced through the anus and advanced to the cecum, identified by appendiceal orifice and ileocecal valve. - The colonoscopy was performed without difficulty. - The quality of the bowel preparation was adequate. Findings: - The perianal examination was normal. - Two sessile polyps were found in the cecum. The polyps were small (4-6 mm) in size. These polyps were removed with a cold snare. Resection and retrieval were complete. - A 19 mm polyp was found in the proximal transverse colon. The polyp was multi-lobulated. The polyp was removed with a hot snare in a piecemeal fashion. Resection was complete, and retrieval was complete. Polyp was approximately 150 cm on insertion and 140 cm on withdrawal . - A small (4-6 mm) polyp was found in the distal transverse colon. The polyp was sessile. The polyp was removed with a cold snare. Resection and retrieval were complete. - Multiple diverticula were found in the sigmoid colon. Impression: - Two small (4-6 mm) polyps in the cecum, removed with a cold snare. Resected and retrieved. - One 19 mm polyp in the proximal transverse colon, removed with a hot snare. Resected and retrieved. - One small (4-6 mm) polyp in the distal transverse colon, removed with a cold snare. Resected and retrieved. - Diverticulosis in the sigmoid colon. Recommendation: - Await pathology results. - Repeat colonoscopy in 1 year to review the polypectomy site because of piecemeal removal and for surveillance based on pathology results. Procedure Code(s): - 11564, Colonoscopy, flexible; with removal of tumor(s), polyp(s), or other lesion(s) by snare technique Diagnosis Code(s): - D12.0, Benign neoplasm of cecum - D12.3, Benign neoplasm of transverse colon (hepatic flexure or splenic flexure) - K57.30, Diverticulosis of large intestine without perforation or abscess without bleeding CPT(R) - 2023 copyright [employer]. All Rights Reserved. The CPT codes, CCI edits and ICD codes generated are intended as suggestions and were generated based on input data. These codes are preliminary and upon english instructor review may be revised to meet current compliance and payer requirements. The provider is responsible for the final determination of appropriate codes, and modifiers. Arturo Suarez MD This document has been electronically signed. Note Initiated:12/19/2024 Note Completed:12/19/2024 3:07 PM \\[email or web address]\Provation\Results\LIVE\[id number]
--- NOTE | 2024-12-19 15:14 | Anesthesiology Progress Note ---
Date of Service December 19, 2024 Anesthesia Post Procedure Vital Signs Vital Signs: Temp Pulse Pulse Resp BP BP Pulse Ox 12/19/24 15:05 85 18 102/64 97 12/19/24 13:32 36.7 C 94 H 16 173/92 H 97 12/19/24 13:09 88 12/19/24 10:49 36.7 C 85 17 162/85 H 95 12/19/24 08:19 12/19/24 07:22 36.7 C 84 17 149/83 H 95 12/19/24 06:12 81 12/19/24 03:57 36.6 C 92 H 18 153/78 H 96 12/18/24 23:06 36.5 C 95 H 18 145/73 H 96 12/18/24 21:46 83 12/18/24 20:15 12/18/24 19:30 36.6 C 91 H 18 139/80 98 12/18/24 16:40 12/18/24 15:52 36.5 C 75 16 121/69 95 Pulse Ox O2 Del Method O2 Del Method 12/19/24 15:05 Room Air 12/19/24 13:32 Room Air 12/19/24 13:09 12/19/24 10:49 Room Air 12/19/24 08:19 Room Air 12/19/24 07:22 Room Air 12/19/24 06:12 12/19/24 03:57 Room Air 12/18/24 23:06 Room Air 12/18/24 21:46 12/18/24 20:15 Room Air 12/18/24 19:30 Room Air 12/18/24 16:40 97 Room Air 12/18/24 15:52 Room Air Transfer of Care Handoff Completed per policy Notes Mental Status: alert / awake / arousable Patient Amnestic to Procedure: Yes Nausea / Vomiting: adequately controlled Pain: adequately controlled Airway Patency, RR, SpO2: stable & adequate BP & HR: stable & adequate Hydration State: stable & adequate Anesthetic Complications: no major complications apparent and Pt Satisfied with anesthetic care
[2024-12-19] MEDS: fentaNYL citrate PF 100 MCG/2 ML VIAL ONE (15:59)
[2024-12-19] MEDS: LIDOCAINE 2% 2 ML VIAL/AMP(20MG/ML) INFIL ONE (15:59)
[2024-12-19] MEDS: PROPOFOL IV EMULSION 10 MG/ML 20 ML VIAL IV ONE ×3 (15:59→16:01)
[2024-12-20 07:55] LABS: Albumin Globulin Ratio 1.9 (0.9-2); Albumin Level 3.7 gm/dl (3.4-5.0); BUN Creatinine Ratio 11.9 (10-20); Bilirubin,Total 1.8 mg/dl (0.2-1.0); Calcium 8.1 mg/dl (8.6-10.3); Phosphorus 2.9 mg/dl (2.5-4.9); Total Protein 5.7 gm/dl (6.0-8.3)
[2024-12-20 08:06] LABS: Hematocrit (blood only) 22.9 % (42.0-52.0); Hemoglobin 7.6 g/dl (14.0-18.0); Mean Corpuscular Hemoglobin 34.1 pg (25.0-34.0); Mean Corpuscular Hgb Conc 33.2 g/dL (32.0-36.0); Mean Corpuscular Volume 102.7 fL (80.0-100.0); Mean Platelet Volume 9.2 fL (9.4-12.4); Platelet Count 283 K/uL (130-400); RDW Coefficient of Variation 20.5 % (11.5-14.5); RDW Standard Deviation 76.2 fL (36.4-46.3); Red Blood Count 2.23 M/uL (4.70-6.10); White Blood Count 4.83 K/ul (4.8-10.8)
[2024-12-20 08:22] LABS: Anisocytosis Present; Basophils # (auto) 0.08 K/uL (0.00-0.20); Basophils % (auto) 1.7 %; Eosinophils # (auto) 0.52 K/uL (0.00-0.50); Eosinophils % (auto) 10.8 %; Hypogranular Neutrophils 1+; Immature Granulocytes # (auto) 0.01 K/uL (0.01-0.20); Immature Granulocytes % (auto) 0.2 %; Lymphocytes # (auto) 1.08 K/uL (1.20-3.40); Lymphocytes % (auto) 22.4 %; Monocytes # (auto) 0.75 K/uL (0.11-0.59); Monocytes % (auto) 15.5 %; Neutrophils # (auto) 2.39 K/uL (1.40-6.50); Neutrophils % (auto) 49.4 %; Ovalocytes 1+
--- NOTE | 2024-12-20 11:42 | Hospitalist Progress Note ---
Date of Service December 20, 2024 Assessment & Plan (1) Acute anemia: (2) AAA (abdominal aortic aneurysm): (3) History of prostate cancer: Plan Mr. Sheehan is a 74 year old male with past medical history of CAD, AAA s/p repair 02/2023, HTN, HLD, cerebral artery aneurysm s/p embolization, GERD, prediabetes, prior gastric ulcer, BPH, prostate cancer s/p androgen deprivation therapy/radiation therapy on surveillance, and sacroiliitis s/p MODESTO, admitted for evaluation of symptomatic anemia. Acute on chronic anemia Intramural hematoma on CT prior Gastric ulcer MCV 115, Hgb 6.1, plts 332 on admission Folate and b12 levels normal iron studies levels normal CT abd/pelvis noting a saccular aneurysm and "...Inferior to it, another smaller posterior saccular dilatation of 35 mm in length, with intramural hematoma..." No abdominal pain, no tenderness, stable hemodynamics FOBT negative PPI BID IV Vascular surgery consulted for CT findings- recommended no further inpt workup GI consulted, appreciate further recs -s/p EGD and colonoscopy on 12/19 with no noted bleed, polyp sampled. Hematology consulted, appreciate recs. Dr Aponte noted/stated the following: "...Patient has macrocytic anemia, nutritional labs within normal limits. This is concerning for possible hematologic malignancy such as multiple myeloma/MDS. Albumin/globulin ratio slightly elevated concerning for plasma cell dyscrasia. Recommend SPEP with FLORA, quant immunoglobulins, serum free light chains. Also recommend bone marrow biopsy to rule out hematologic malignancy.... Pt is s/p transfusion of 2U pRBCs on 12/17 with noted improvement of H/H. s/p bone biopsy on 12/19/24- pathology results pending. H/H currently downtrending once more, continue to monitor and transfuse blood as needed Continue to monitor H/H and await bone marrow pathology results Hypertension Palpitations Monitor on tele Continue Metoprolol hold amlodipine at this time CAD Cerebral artery aneurysm HLD continue statin hold asa for now Diet:HH DVT ppx SCDS Dispo: PT/OT ordered for further recs Admission and Anticipated Discharge Date Admission Date: December 17, 2024 Subjective pt was seen multiple times during the day Anxious for discharge States that his is currently being cared for by his daughter and he wants to get home to help take care of her. Review of Systems Review of Systems: All systems reviewed & are unremarkable except as noted in Subjective Physical Exam Physical Exam: General: Alert, oriented. No acute distress HEENT: NC/AT CV: RRR Resp: Breath sounds clear bilaterally, no increased effort of breathing Abdomen: Soft, nontender Extremities:edema in lower extremities bilaterally. Results & Data Results & Data Vital Signs (Past 12 Hours) Vital Signs Temp Pulse Pulse Resp BP BP Pulse Ox 12/20/24 10:59 36.3 C L 98 H 16 133/74 98 12/20/24 10:19 12/20/24 07:24 78 12/20/24 07:20 36.5 C 84 12 161/82 H 96 12/20/24 03:44 36.3 C L 85 20 137/71 95 12/20/24 00:00 36.7 C 81 18 129/66 95 O2 Del Method 12/20/24 10:59 Room Air 12/20/24 10:19 Room Air 12/20/24 07:24 12/20/24 07:20 Nasal Cannula 12/20/24 03:44 Room Air 12/20/24 00:00 Room Air
[2024-12-20 12:25] LABS: Hematocrit (blood only) 22.8 % (42.0-52.0); Hemoglobin 7.5 g/dl (14.0-18.0)
[2024-12-21 07:27] LABS: Hematocrit (blood only) 23.1 % (42.0-52.0); Hemoglobin 7.6 g/dl (14.0-18.0); Mean Corpuscular Hemoglobin 33.8 pg (25.0-34.0); Mean Corpuscular Hgb Conc 32.9 g/dL (32.0-36.0); Mean Corpuscular Volume 102.7 fL (80.0-100.0); Mean Platelet Volume 9.4 fL (9.4-12.4); Platelet Count 268 K/uL (130-400); RDW Coefficient of Variation 19.9 % (11.5-14.5); RDW Standard Deviation 74.6 fL (36.4-46.3); Red Blood Count 2.25 M/uL (4.70-6.10); White Blood Count 4.16 K/ul (4.8-10.8)
[2024-12-21 07:56] LABS: Basophils # (auto) 0.09 K/uL (0.00-0.20); Basophils % (auto) 2.2 %; Eosinophils # (auto) 0.55 K/uL (0.00-0.50); Eosinophils % (auto) 13.2 %; Hypogranular Neutrophils 1+; Immature Granulocytes # (auto) 0.27 K/uL (0.01-0.20); Immature Granulocytes % (auto) 6.5 %; Lymphocytes # (auto) 1.11 K/uL (1.20-3.40); Lymphocytes % (auto) 26.7 %; Monocytes % (auto) 16.8 %; Neutrophils # (auto) 1.44 K/uL (1.40-6.50); Neutrophils % (auto) 34.6 %; Ovalocytes 1+; Polychromasia 1+
[2024-12-21 08:02] LABS: Albumin Globulin Ratio 1.9 (0.9-2); Albumin Level 3.6 gm/dl (3.4-5.0); BUN Creatinine Ratio 11.3 (10-20); Bilirubin,Total 1.3 mg/dl (0.2-1.0); Calcium 8.1 mg/dl (8.6-10.3); Creatinine Clr Calc Pharmacy 68.5 ml/min; Globulin 1.9 gm/dl (2.5-4.0); Phosphorus 3.5 mg/dl (2.5-4.9); Potassium 4.1 mmol/L (3.5-5.1); Total Protein 5.5 gm/dl (6.0-8.3)
[2024-12-21] MEDS ORDERED: SODIUM CHLORIDE 0.9% 100 ML IV PRN (09:43)
[2024-12-21 14:17] VITALS: RESP 16
--- NOTE | 2024-12-21 14:43 | Discharge Summary ---
Date of Service December 21, 2024 Admission HPI Per Admitting Provider Mr. Sheehan is a 74 year old male with past medical history of CAD, AAA s/p repair 02/2023, HTN, HLD, cerebral artery aneurysm s/p embolization, GERD, prediabetes, prior gastric ulcer, BPH, prostate cancer s/p androgen deprivation therapy/radiation therapy on surveillance, and sacroiliitis s/p MODESTO, presented to [facility] ED due to abnormal outpatient labs. Patient reports undergoing extensive work up due to months of SOB and ADDISON. Patient reports palpitations and progressive fatigue. He denies any melena, hematochezia, hemoptysis, hematemesis, or hematuria. He denies lightheadedness or presyncope. He states that outside of the shortness of breath and the weakness, he cannot pin point any other notable symptoms. He presented to Cardiology for cardiac work up as etiology for this, prompting labs being ordered which revealed 6.3. Takes asa daily, doses report intermittent ibuprofen use 1-2 times weekly. Last labs from patient were in 2022 and baseline hemoglobin was around 10. Patient reports history of transfusion in 2022 after AAA repair. In the ED, vitals were notable for BP of 110s-140s, HR of 70-80s, and O2 sat of high 90s on room air Imaging revealed intramural hematoma, irregular calcific wilson, saccular dilatation and significant ostial stenosis of celiac/SMA EKG NSR, QTc 430 ED interventions: NS, 1 UPRBC Patient to be admitted to [facility] for further evaluation and management of acu te anemia Admission Exam Per Admitting Provider GENERAL APPEARANCE: AxOx4, generally well-appearing male, no acute distress. HEENT: NC, AT. MMM. EOMI, conjunctival pallor oropharynx clear. NECK: Supple without lymphadenopathy. No stiffness or restricted ROM. HEART: Normal rate and regular rhythm, normal S1/S1, no m/r/g LUNGS: CTAB, moving air well. No crackles or wheezes are heard. ABDOMEN: Soft, nontender, nondistended with good bowel sounds heard. BACK: No CVAT, no obvious deformity. EXTREMITIES: Without cyanosis, clubbing or edema. NEUROLOGICAL: Grossly nonfocal. Alert and oriented, moving all 4 extremities. CN not formally tested but appear grossly intact. Skin: Warm and dry without any rash, however, noted pallor . Principal Diagnosis Symptomatic anemia Discharge Exam Constitutional: WD/WN, vitals as above, NAD, sitting up in bed, pleasant, conversing easily Respiratory: normal respiratory effort, lungs clear to auscultation, no wheeze, rales, rhonchi. Normal insp/exp effort, no accessory muscle use Cardiovascular: RRR, no murmur, no edema Vessels: no JVD or carotid bruit Chest: normal inspection of chest Abdomen: normal bowel sounds, soft, nontender, no hepatosplenomegaly Musculoskeletal: no cyanosis or clubbing, extremities motor strength 5/5 Skin: no rashes, warm and dry normal turgor Neurologic: PERRL, EOMI, accommodation nl, no face palsy, no dysarthria CN's II- XI intact bilaterally and moves all extremities Psychiatric: A+Ox3, euthymic affect Discharge Data Allergies Allergy/AdvReac Type Severity Reaction Status Date / Time prednisone Allergy Intermediate edema Verified 12/19/24 13:31 Consultations 12/17/24 14:44 ED Decision to Admit Stat 12/17/24 18:18 Consult Vascular Surgery Routine 12/17/24 18:20 Consult Gastroenterology Routine 12/18/24 10:48 Consult Hematology Routine Procedures Performed Operation Date: 12/19/24 16:30 Actual Procedures p Esophagogastroduodenoscopy - Arturo Suarez MD s Colonoscopy Polypectomy - Arturo Suarez MD Ordered Studies 12/17/24 14:57 CTA abd pelvis wo/w con [CT angio abd pelvis wo/w con] Stat 12/19/24 11:30 IR bone marrow bx & asp Routine Hospital Course (1) Acute anemia: (2) AAA (abdominal aortic aneurysm): (3) History of prostate cancer: Plan Mr. Sheehan is a 74 year old male with past medical history of CAD, AAA s/p repair 02/2023, HTN, HLD, cerebral artery aneurysm s/p embolization, GERD, prediabetes, prior gastric ulcer, BPH, prostate cancer s/p androgen deprivation therapy/radiation therapy on surveillance, and sacroiliitis s/p MODESTO, admitted for evaluation of symptomatic anemia. On presentation to the hospital, patient was found to have a hemoglobin of 6.1; MCV of 115 and platelet count of 332K. Ferritin, vitamin B12 level and folate were within normal limits. FOBT was negative. CT abdomen pelvis showed saccular aneurysm for which vascular surgery was consulted; recommended no further inpatient workup. GI was consulted for evaluation of anemia; patient underwent endoscopy and colonoscopy which did not show any findings of bleeding. Patient was transfused 3 units of packed RBCs throughout the hospitalization. Hematology was consulted for comanagement; concerning for possible hematological malignancy such as MDS/multiple myeloma. Patient underwent bone marrow biopsy as well as workup for multiple myeloma; results were still pending at the time of the discharge. Discussion was done with hematology at the time of the discharge; patient to follow-up with them to discuss results of bone marrow biopsy and multiple myeloma workup. Please note the above document was generated using voice recognition software. It may contain grammatical, syntax or spelling errors. Any formal questions or concerns about the content, text or information contained within the body of this dictation should be directly addressed to the provider for clarification Total Time Total Time Spent Total Time Spent (In Minutes): 45 Total Time Includes: Examination of the Patient, Discharge Planning, Medication Reconciliation, Communication With Other Providers and Other Discharge Plan Discharge Items Patient Disposition: Home - Self-Care Reason For Visit: ANEMIA,SOB Discharge Diagnosis: Acute on chronic anemia Intramural hematoma on CT prior Gastric ulcer Activity: Resume your previous activity Non-emergency contact: Primary Care Provider Call non-emergency contact if: you have any medication questions and your symptoms worsen Follow-up/Referrals: Esteban Ortega DO [[facility]] - 01/10/25 11:00 am Russ Berman MD [Primary Care Provider] - (Date & Time 12/27/2024 11:00 AM Provider: Russ Berman MD [facility] ) Laureen Aponte MD [Physician] - 12/28/24 10:40 am Diet: Regular and Carb Consistent or DM2 Addtl Attending Provider Instructions: You were admitted to the hospital due to low hemoglobin level. You are transfused blood products during the hospitalization. He underwent bone marrow biopsy and blood test to check out underlying bone marrow disorder. Please follow-up with cancer care center at [facility] to discuss results of the bone marrow biopsy and other blood test on 12/28 at 10:40 am. For follow-up with your primary care doctor has also been set up. Pending Studies at Discharge: Yes Studies:: Bone marrow biopsy results, multiple myeloma workup Stand-Alone Forms: My [facility] [place], Smoking Cessation Medications and DC Order Prescriptions: Continued aspirin 81 mg tablet,delayed release (DR/EC) 81 mg PO DAILY atorvastatin [Lipitor] 20 mg tablet 40 mg PO DAILY glucosamine-chondroitin 500-400 mg capsule 1 cap PO DAILY Rx Instructions: give with meal/snack amlodipine 5 mg tablet 5 mg PO DAILY cetirizine [Allergy Relief (cetirizine)] 10 mg tablet 10 mg PO DAILY PRN (Reason: Allergy Symptoms) Adult 50 Plus Probiotic 4 billion cell capsule 4,000 mmu cells PO DAILY Rx Instructions: administer with a meal metoprolol succinate 50 mg tablet extended release 24 hr 50 mg PO DAILY Discontinued ibuprofen 200 mg capsule 200 mg PO Q6H PRN (Reason: Pain) Rx Instructions: 2 times last week, then occasional/intermittent Discharge Orders: Discharge Order (Routine); Ordered 12/21/24 Ordered By: Coleman Benitez Admission Data Admit Date/Time: 12/17/24 15:21 Attending Provider: Coleman Benitez Admit Provider: Mera Perez Primary Care Provider: Russ Berman Other Providers: Mera Perez; Christopher Almazan; Bert Kelly Jr; Laureen Aponte Other Interventions: Discharge Summary Assessment (RN) Last Done: 12/21/24 13:22
[2024-12-21 14:52] VITALS: BP 135/77; PULSE 84; TEMP 97.5; O2SAT 95
[2024-12-21 16:27] LABS: Albumin 3.3 g/dL (3.8-4.8); Alpha 1 Globulin 0.2 g/dL (0.2-0.3); Alpha 2 Globulin 0.5 g/dL (0.5-0.9); Beta-1-Globulin 0.3 g/dL (0.4-0.6); Beta-2-Globulin 0.3 g/dL (0.2-0.5); Free Kappa 26.5 mg/L (3.3-19.4); Free Lambda 18.9 mg/L (5.7-26.3); Gamma Globulin 0.5 g/dL (0.8-1.7); Monoclonal Protein Band 1 DNR g/dL (NONE DETECTED); Monoclonal Protein Band 2 DNR g/dL (NONE DETECTED); Monoclonal Protein Band 3 DNR g/dL (NONE DETECTED); Total Protein 5.3 g/dL (6.1-8.1)
--- NOTE | 2024-12-29 08:57 | Coding Query ---
PATHOLOGY To promote full compliance with coding requirements relating to patient care, physician participation is requested in all cases of county manager uncertainty. Please assist us with the question(s) below: Please review the BONE MARROW Pathology report and please document any relevant diagnosis(es) below: Diagnosis(es): Anemia Myelodysplastic syndrome Thank you Jacy IVAN
== END 2024-12-21 15:39 | disposition home or self-care (01) | DRG 812 ==
LOC: ED 12:41 → SUATTDRO 15:21 → 2N 15:21